=== PATIENT | female | born 1955 | race African-American/Black ===

== ENCOUNTER 2017-10-17 11:57 | Inpatient (IN) | payer OTHER ==
[2017-10-17 12:04] VITALS: BMI 38.4
--- NOTE | 2017-10-17 12:56 | PDOC ---
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 The son is at bedside and providing most of the history. As per the son, the patient finished dialysis this morning and then went to a wound care appointment. At wound care, the patient started having facial movements and the son says these facial movements usually happen when something neurologic is going on. The son notes that the patient has not had any other changes in her mental status and was at her normal state of health yesterday. Allergies: NKA <Ursula Carlton - Last Filed: 10/17/17 13:25> <Derrek Chirinos - Last Filed: 10/17/17 18:27> - General Chief Complaint: Altered Mental Status Stated Complaint: AMS Time Seen by Provider: 10/17/17 12:00 Past History <Ursula Carlton - Last Filed: 10/17/17 13:25> - Past Medical History Anemia: Yes COPD: No Diabetes: Yes Dialysis: Yes HTN: Yes Psychiatric Problems: Yes (schizophrenia) - Suicide/Smoking/Psychosocial Hx Smoking History: Unknown if ever smoked <Derrek Chirinos - Last Filed: 10/17/17 18:27> - Past Medical History Allergies/Adverse Reactions: Allergies Allergy/AdvReac Type Severity Reaction Status Date / Time No Known Allergies Allergy Verified 10/17/17 12:00 Home Medications: Ambulatory Orders Acetaminophen 650 mg GT Q6H PRN 10/17/17 Amlodipine Besylate [Norvasc -] 2.5 mg GT DAILY 10/17/17 Apixaban [Eliquis] 5 mg GT BID 10/17/17 Collagenase Clostridium Hist. [Santyl] 1 applic TP DAILY 10/17/17 Insulin (LOG) Aspart [NovoLOG -] 0 units SQ BID 10/17/17 Insulin NPH Hum/Reg Insulin Hm [Novolin 70-30 100 Unit/ml Vial] 8 unit SQ DAILY 10/17/17 Ipratropium 0.02% Nebulizer [Atrovent] 1 neb NEB Q4H 10/17/17 Lactobacillus Acidophilus [Acidophilus] 1 each GT BID 10/17/17 Levetiracetam [Keppra Oral Solution -] 500 mg GT Q12H 10/17/17 Nystatin Powder [Nystop Topical Powder -] 60 gm TP DAILY 10/17/17 Paricalcitol 2 mcg IV DAILY 10/17/17 Polyvinyl Alcohol [Artificial Tears] 15 ml OP BID 10/17/17 Sevelamer Carbonate 800 mg GT Q8H 10/17/17 Vitamin B Complex/Folic Acid [B-Stress Capsules] 2,000 mcg GT DAILY 10/17/17 Review of Systems - Review of Systems Able to Perform ROS?: No <Ursula Carlton - Last Filed: 10/17/17 13:25> *Physical Exam - Vital Signs Last Vital Signs Temp Pulse Resp BP Pulse Ox 101 H 22 126/68 97 10/17/17 12:01 10/17/17 12:01 10/17/17 12:01 10/17/17 12:01 - Physical Exam Comments: 10/17/17 13:26 GENERAL: Awake, alert, and fully oriented, in no acute distress HEAD: No signs of trauma EYES: PERRLA, EOMI, sclera anicteric, conjunctiva clear ENT: Auricles normal inspection, hearing grossly normal, nares patent, oropharynx clear without exudates. Moist mucosa NECK: Normal ROM, supple, no lymphadenopathy, JVD, or masses LUNGS: Breath sounds equal, clear to auscultation bilaterally. No wheezes, and no crackles HEART: Regular rate and rhythm, normal S1 and S2, no murmurs, rubs or gallops ABDOMEN: Soft, nontender, normoactive bowel sounds. No guarding, no rebound. No masses EXTREMITIES: Normal range of motion, no edema. No clubbing or cyanosis. No cords, erythema, or tenderness NEUROLOGICAL: Normal speech, cranial nerves intact, negative pronator drift, 5/ 5 strength in all 4 extremities, normal sensation to light touch in all 4 extremities, normal cerebellar exam, normal gait, normal reflexes and tone SKIN: Warm, Dry, normal turgor, no rashes or lesions noted. <Ursula Carlton - Last Filed: 10/17/17 13:25> - Vital Signs Last Vital Signs Temp Pulse Resp BP Pulse Ox 101 H 22 126/68 97 10/17/17 12:01 10/17/17 12:01 10/17/17 12:01 10/17/17 12:01 <Derrek Chirinos - Last Filed: 10/17/17 18:27> ED Treatment Course - LABORATORY CBC & Chemistry Diagram: 10/17/17 15:00 10/17/17 14:39 - RADIOLOGY Radiology Studies Ordered: Category Date Time Status HEAD CT WITHOUT CONTRAST [CT] Stat CT Scan 10/17/17 12:01 Ordered CHEST X-RAY PORTABLE* [RAD] Stat Radiology 10/17/17 12:00 Completed <Derrek Chirinos - Last Filed: 10/17/17 18:27> Medical Decision Making - Medical Decision Making 10/17/17 14:17 62-year-old female history of SVC syndrome complicated by emboli and hemorrhage , long term bound, stage IV sacral decubitus ulcer, epilepsy presents to the emergency department with altered mental status from wound clinic. Son notes a common symptoms of her face that he states are only present when something neurologic is occurring. Vitals remarkable for tachycardia to the low 100s. Exam remarkable left repetitive nadine movements, stage IV sacral decubitus ulcer, and low-grade temperature to 100 rectally. Differential for her altered mental status includes but is not limited to infection versus seizures versus ischemia versus metabolic disarray. Will do a sepsis workup as well as a CTH and obtain cardiac enzymes for further evaluation and likely admit. 10/17/17 18:25 CT head with no acute change. Patient treated with Vanc and Zosyn for likely infection due to stage IV sacral decubitus ulcer. Patient has been signed out to resident Dr. Perez in person in the ED and has been accepted for admission to a [facility] inpatient bed under attending Dr. Mishra. Case discussed in detail with admitting physician including history, physical exam and ancillary studies. Admitting physician has assumed care for the patient, will follow all pending diagnostics and will complete the evaluation and treatment. <Derrek Chirinos - Last Filed: 10/17/17 18:27> *DC/Admit/Observation/Transfer - Attestations Scribe Attestion: 10/17/17 13:26 Documentation prepared by Ursula Carlton, acting as medical records director for Derrek Chirinos MD. <Ursula Carlton - Last Filed: 10/17/17 13:25> - Discharge Dispostion Admit: Yes - Attestations Physician Attestion: 10/17/17 18:27 I, Dr. Derrek Chirinos MD, attest that this document has been prepared under my direction and personally reviewed by me in its entirety. I further attest, that it accurately reflects all work, treatment, procedures and medical decision -making performed by me. <Derrek Chirinos - Last Filed: 10/17/17 18:27> Diagnosis at time of Disposition: Sepsis - Discharge Dispostion Condition at time of disposition: Stable
[2017-10-17 15:05] LABS: VENOUS PC02 54.5 mmHg (38-52); VENOUS PH 7.36 (7.32-7.42); VENOUS PO2 33.8 mmHg (28-48)
[2017-10-17 15:09] LABS: BASO % 0.9 % (0-2.0); EOS % 1.3 % (0-4.5); HEMATOCRIT 22.9 % (32.4-45.2); HEMOGLOBIN 7.3 GM/dL (10.7-15.3); LYMPH % 14.3 % (8-40); MCH 27.8 pg (25.7-33.7); MCHC 31.8 g/dl (32.0-36.0); MEAN CELL VOLUME 87.5 fl (80-96); MEAN PLT VOLUME 7.6 fl (7.5-11.1); MONO % 4.3 % (3.8-10.2); NEUT % 79.2 % (42.8-82.8); PLATELET COUNT 564 K/MM3 (134-434); RBC 2.62 M/mm3 (3.60-5.2); RDW 19.4 % (11.6-15.6)
[2017-10-17 15:29] LABS: INR 1.36 (0.82-1.09); PROTHROMBIN TIME (PATIENT) 15.4 SEC (9.98-11.88)
[2017-10-17 15:32] LABS: ACTIVATED PTT 36.5 SECONDS (26.9-34.4)
[2017-10-17 16:23] LABS: ALBUMIN 2.8 g/dl (3.4-5.0); ALK PHOS 160 U/L (45-117); ANION GAP 12 (8-16); BILIRUBIN,TOTAL 0.4 mg/dL (0.2-1.0); BLOOD UREA NITROGEN 24 mg/dL (7-18); CALCIUM 9.2 mg/dL (8.5-10.1); CHLORIDE 92 mmol/L (98-107); CO2 28 mmol/L (21-32); CREATININE 2.3 mg/dL (0.55-1.02); GLUCOSE,RANDOM 83 mg/dL (74-106); POTASSIUM 3.5 mmol/L (3.5-5.1); SGOT/AST 36 U/L (15-37); SGPT/ALT 29 U/L (12-78); SODIUM 132 mmol/L (136-145)
[2017-10-17 16:25] LABS: TOT PROT 7.9 g/dl (6.4-8.2)
[2017-10-17] MEDS ORDERED: PIPERACILLIN/TAZOB 4.5 GM 4.5 GM in DEXTROSE 5%-WATER - 100 ML IVPB ONE (16:34)
[2017-10-17] MEDS ORDERED: VANCOMYCIN 1,000 MG in DEXTROSE 5%-WATER - 250 ML IVPB ONE (16:34)
[2017-10-17] MEDS ORDERED: VANCOMYCIN 1 GRAM (PRE-DOCKED) 1,000 MG/250 ML BAG IVPB ONE (16:43)
[2017-10-17] MEDS ORDERED: PIPERACILLIN/TAZOB 4.5 GM 4.5 GM/100 ML BAG IVPB ONE (16:43)
[2017-10-17] MEDS ORDERED: morphine CARPU-JECT 4 MG/1 ML DISP.SYRIN IVPUSH ONE (16:55)
[2017-10-17] MEDS ORDERED: MORPHINE SULFATE 10 MG/1 ML *VIAL ONE (17:02)
--- NOTE | 2017-10-17 18:07 | HP ---
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 The son is at bedside and providing most of the history. As per the son, the patient finished dialysis this morning and then went to a wound care appointment. At wound care, the patient started having facial movements and the son says these facial movements usually happen when something neurologic is going on. The son notes that the patient has not had any other changes in her mental status and was at her normal state of health yesterday. pt has a H/o schizophrenai and stop her psych meds 6 months ago. ER course was notable for: (1) CXR (2)Head CT (3)CBC, CMP , LA (4)Pacheco cx (5) vanco/zosyn Recent Travel:denies PAST MEDICAL HISTORY: ESRD, HTN, SVC(with embolism and hemorrhage ), iron deficiency anemia , Type II DM, Enetrocolitis C.diff, epilepsy, Stage IV decupetus ulcer. Social History: Smoking:denies Alcohol:denies Drugs: denies Family History: Allergies No Known Allergies Allergy (Verified 10/17/17 12:00) HOME MEDICATIONS: Home Medications Medication Instructions Recorded Acetaminophen 650 mg GT Q6H PRN 10/17/17 Amlodipine Besylate [Norvasc -] 2.5 mg GT DAILY 10/17/17 Apixaban [Eliquis] 5 mg GT BID 10/17/17 Collagenase Clostridium Hist. 1 applic TP DAILY 10/17/17 [Santyl] Insulin (LOG) Aspart [NovoLOG -] 0 units SQ BID 10/17/17 Insulin NPH Hum/Reg Insulin Hm 8 unit SQ DAILY 10/17/17 [Novolin 70-30 100 Unit/ml Vial] Ipratropium 0.02% Nebulizer 1 neb NEB Q4H 10/17/17 [Atrovent] Lactobacillus Acidophilus 1 each GT BID 10/17/17 [Acidophilus] Levetiracetam [Keppra Oral 500 mg GT Q12H 10/17/17 Solution -] Nystatin Powder [Nystop Topical 60 gm TP DAILY 10/17/17 Powder -] Paricalcitol 2 mcg IV DAILY 10/17/17 Polyvinyl Alcohol [Artificial 15 ml OP BID 10/17/17 Tears] Sevelamer Carbonate 800 mg GT Q8H 10/17/17 Vitamin B Complex/Folic Acid 2,000 mcg GT DAILY 10/17/17 [B-Stress Capsules] REVIEW OF SYSTEMS: obtained from son CONSTITUTIONAL: Absent: fever, chills, diaphoresis, generalized weakness, malaise, loss of appetite, weight change HEENT: Absent: rhinorrhea, nasal congestion, throat pain, throat swelling, difficulty swallowing, mouth swelling, ear pain, eye pain, visual changes CARDIOVASCULAR: Absent: chest pain, syncope, palpitations, irregular heart rate, lightheadedness , peripheral edema RESPIRATORY: Absent: cough, shortness of breath, dyspnea with exertion, orthopnea, wheezing, stridor, hemoptysis GASTROINTESTINAL: Absent: abdominal pain, abdominal distension, nausea, vomiting, diarrhea, constipation, melena, hematochezia GENITOURINARY: Absent: dysuria, frequency, urgency, hesitancy, hematuria, flank pain, genital pain, anuria MUSCULOSKELETAL: Absent: myalgia, arthralgia, joint swelling, back pain, neck pain SKIN: Absent: rash, itching, pallor HEMATOLOGIC/IMMUNOLOGIC: Absent: easy bleeding, easy bruising, lymphadenopathy, frequent infections ENDOCRINE: Absent: unexplained weight gain, unexplained weight loss, heat intolerance, cold intolerance NEUROLOGIC: Absent: headache, focal weakness or paresthesias, dizziness, unsteady gait, seizure, mental status changes, bladder or bowel incontinence PSYCHIATRIC: Absent: anxiety, depression, suicidal or homicidal ideation, hallucinations. PHYSICAL EXAMINATION Vital Signs - 24 hr 10/17/17 10/17/17 12:01 13:43 Temperature 100.0 F H Pulse Rate 101 H Respiratory 22 Rate Blood Pressure 126/68 O2 Sat by Pulse 97 Oximetry (%) GENERAL: awake , not alert not oriented , responce to verbal stimuli HEAD: Normal with no signs of trauma. EYES:right pupil dilated non reactive deformed , left pupil reactive to light. ENT: dry mucous membrane NECK: supple LUNGS: Breath sounds equal, clear to auscultation bilaterally. No wheezes, and no crackles. No accessory muscle use. HEART: Regular rate and rhythm, normal S1 and S2 ,systolic murmur 2-3/6 LUSB, No rub or gallop. ABDOMEN: Soft, nontender, distended, normoactive bowel sounds, no guarding, no rebound, PEG in place UPPER EXTREMITIES: 1+ pulses, cold, No cyanosis. No clubbing. No peripheral edema. fistula in left arm, IV line in right arm , 3/5 strength on the right , vs 5/5 strength on the left LOWER EXTREMITIES: 1+ pulses, cold , No calf tenderness. No peripheral edema. strength 3/5 on the right with 5/5 on the left . NEUROLOGICAL: could not perform due to AMS SKIN: Warm, dry, scar on the right arm, 10 cm x 8 cm dicupetus ulcer stage IV Laboratory Results - last 24 hr 10/17/17 10/17/17 10/17/17 13:25 14:39 14:39 WBC Cancelled Corrected WBC (auto) Cancelled RBC Cancelled Hgb Cancelled Hct Cancelled MCV Cancelled MCH Cancelled MCHC Cancelled RDW Cancelled Plt Count Cancelled MPV Cancelled Neutrophils % Cancelled Lymphocytes % Cancelled Monocytes % Cancelled Eosinophils % Cancelled Basophils % Cancelled Nucleated RBC % Cancelled Platelet Estimate Cancelled Platelet Comment Cancelled PT with INR 15.40 H INR 1.36 H PTT (Actin FS) 36.5 H VBG pH 7.36 POC VBG pCO2 54.5 H POC VBG pO2 33.8 Mixed VBG HCO3 30.1 H Sodium Potassium Chloride Carbon Dioxide Anion Gap BUN Creatinine Creat Clearance w eGFR Random Glucose Lactic Acid Calcium Magnesium Total Bilirubin AST ALT Alkaline Phosphatase Creatine Kinase Creatine Kinase Index CK-MB (CK-2) Troponin I Total Protein Albumin 10/17/17 10/17/17 10/17/17 14:39 14:39 15:00 WBC Corrected WBC (auto) RBC Hgb Hct MCV MCH MCHC RDW Plt Count MPV Neutrophils % Lymphocytes % Monocytes % Eosinophils % Basophils % Nucleated RBC % Platelet Estimate Platelet Comment PT with INR INR PTT (Actin FS) VBG pH POC VBG pCO2 POC VBG pO2 Mixed VBG HCO3 Sodium 132 L Potassium 3.5 Chloride 92 L Carbon Dioxide 28 Anion Gap 12 BUN 24 H Creatinine 2.3 H Creat Clearance w eGFR 21.49 Random Glucose 83 Lactic Acid 2.4 H* Calcium 9.2 Magnesium Cancelled Total Bilirubin 0.4 AST 36 ALT 29 Alkaline Phosphatase 160 H Creatine Kinase 448 H Creatine Kinase Index 1.2 CK-MB (CK-2) 5.508 H Troponin I < 0.02 Cancelled Total Protein 7.9 Albumin 2.8 L 10/17/17 15:00 WBC 10.0 Corrected WBC (auto) RBC 2.62 L Hgb 7.3 L Hct 22.9 L MCV 87.5 MCH 27.8 MCHC 31.8 L RDW 19.4 H Plt Count 564 H MPV 7.6 Neutrophils % 79.2 Lymphocytes % 14.3 Monocytes % 4.3 Eosinophils % 1.3 Basophils % 0.9 Nucleated RBC % Platelet Estimate Platelet Comment PT with INR INR PTT (Actin FS) VBG pH POC VBG pCO2 POC VBG pO2 Mixed VBG HCO3 Sodium Potassium Chloride Carbon Dioxide Anion Gap BUN Creatinine Creat Clearance w eGFR Random Glucose Lactic Acid Calcium Magnesium Total Bilirubin AST ALT Alkaline Phosphatase Creatine Kinase Creatine Kinase Index CK-MB (CK-2) Troponin I Total Protein Albumin CBC, BMP 10/17/17 15:00 10/17/17 14:39 CXR : weak inspiration with promenent mediastenum. CT head : moderate atrophy , NO intracranial lesions or hemorrhage. 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 was found to have sepsis ad admitted to med-surg for further evaluation. # Sepsis likely 2/2 decubitus ulcer vs unknown source * Pacheco cx (blood, urine , sputum, wound ) * influenza swap rapid * Vanco/zosyn in ED * ID on board * repeat CBC, CMP * LA 2.4 repeat LA * Tylenol for fever * IV fluids boluses with 75 CC/hr maintenance * # AMS likely 2/2 sepsis vs volume depletion vs electrolytes imbalance vs seizure vs CVA * Head CT negative * H/O seizure contine home meds * replinished elctrolytes * IV fluids NS 2 L bolus , maintenance 100 CC/hr * # Hyponatremia 2/2 low oral intake * NS IV fluids * repeat lab * # REBECA on CKD on HD 2/2 sepsis vs pre renal * BUN/ CR 24/2.3 , had HD today * IV fluids, ABX * consult nephrology * Avoid nephrotoxic agenst * nephrology consult * c/w HD schedule * repeat BuN/Cr * # Stage IV decubitus ulcer * wound care * contiue abx * wound cx # Prolonges QT * avoid meds that cause prolongtion (zofran, levaquin, ...) # HTN * hold home meds due to sepsis * # Type II DM * Hold home meds * ISS * BGM TID * npo for now , diabetic diet low sodium diet later * # seizure * Continue home meds * Consult neurology * # FEN * F: NS bolusses with maintenance * E: replenished , monitor * N: NPO , later diabetic , low sodium diet through PEG * # Proph * DVT : SCDS both legs * GI: protonix 40 mg daily * # Dispo * Admit to Med-surg Visit type - Emergency Visit Emergency Visit: Yes ED Registration Date: 10/17/17 Care time: The patient presented to the Emergency Department on the above date and was hospitalized for further evaluation of their emergent condition. - New Patient This patient is new to me today: Yes Date on this admission: 10/19/17 - Critical Care Critical Care patient: No
[2017-10-17] MEDS ORDERED: SODIUM CHLORIDE 1,000 ML IV SCH ×2 (19:30→22:56)
[2017-10-17] MEDS ORDERED: IPRATROPIUM BR 0.02% 0.5 MG/2.5 ML VIAL.NEB. NEB PRN (23:00)
[2017-10-17] MEDS: levETIRAcetam 500 MG/5 ML ORAL SOLUTION (UNIT-DOSE CUPS) GT SCH (23:30)
--- NOTE | 2017-10-18 00:05 | PN ---
Teaching Attending Note Name of Resident: Greg Cuevas ATTENDING PHYSICIAN STATEMENT I saw and evaluated the patient. I reviewed the resident's note and discussed the case with the resident. I agree with the resident's findings and plan as documented. SUBJECTIVE: OBJECTIVE: ASSESSMENT AND PLAN: patient is admitted for sepsis 2/2 to sacral decubitus ulcer patient was noted to have tardive dyskinesiea that according to the patients son has been going on for a while, she was on antiphychotics but she has not taken the medication for over 6 months, since she was admitted to the [facility] for a stroke with a SVC clot. patient is AAOX3 she is agitated biting her hand involuntary. plan; admit to hospital for sepsis 2/2 sacral ulcer start vancomycin and pipercillin/tazobactam consult ID IVF hydration trend lactic acid c/w home medication f/u with neurology for tradive dyskinesia consider psychiatry if the patient wants to be managed for her schizoaffective/ bipolar disorder obtain echocardiogram
[2017-10-18] MEDS ORDERED: HALOPERIDOL LACTATE 5 MG/ML IM ONE (03:17)
[2017-10-18 06:13] LABS: ALLENS TEST POSITIVE; ARTERIAL BLD GAS O2 SATURATION 96.6 % (90-98.9); ARTERIAL BLOOD GAS BASE EXCESS 6.1 meq/l (-2-2); ARTERIAL BLOOD GAS PCO2 39.2 mmHg (35-45); ARTERIAL BLOOD GAS PO2 76.1 mmHg (80-100); ARTERIAL BLOOD GAS pH 7.49 (7.35-7.45)
[2017-10-18] MEDS: INSULIN SLIDING SCALE (NOVOLOG) 1 VIAL SQ SCH ×3 (06:23→19:38)
[2017-10-18 07:56] LABS: BASO % 0.6 % (0-2.0); EOS % 1.3 % (0-4.5); HEMATOCRIT 21.2 % (32.4-45.2); LYMPH % 14.5 % (8-40); MCH 27.1 pg (25.7-33.7); MCHC 30.9 g/dl (32.0-36.0); MEAN CELL VOLUME 87.6 fl (80-96); MONO % 5.9 % (3.8-10.2); NEUT % 77.7 % (42.8-82.8); PLATELET COUNT 537 K/MM3 (134-434); RBC 2.42 M/mm3 (3.60-5.2); RDW 19.2 % (11.6-15.6); WHITE BLOOD COUNT 10.4 K/mm3 (4.0-10.0)
[2017-10-18 07:59] LABS: INR 1.42 (0.82-1.09); PROTHROMBIN TIME (PATIENT) 16.1 SEC (9.98-11.88)
[2017-10-18 08:01] LABS: ACTIVATED PTT 36.8 SECONDS (26.9-34.4)
[2017-10-18 08:11] LABS: CHLORIDE 94 mmol/L (98-107); HEMOGLOBIN 6.6 GM/dL (10.7-15.3); POTASSIUM 3.3 mmol/L (3.5-5.1); SODIUM 133 mmol/L (136-145)
[2017-10-18 08:19] LABS: ALBUMIN 2.6 g/dl (3.4-5.0); ALK PHOS 149 U/L (45-117); ANION GAP 12 (8-16); BILIRUBIN,TOTAL 0.6 mg/dL (0.2-1.0); BLOOD UREA NITROGEN 32 mg/dL (7-18); CO2 27 mmol/L (21-32); CREATININE 3.3 mg/dL (0.55-1.02); GLUCOSE,RANDOM 122 mg/dL (74-106); MAGNESIUM 2.3 mg/dL (1.8-2.4); SGOT/AST 25 U/L (15-37); SGPT/ALT 22 U/L (12-78); TOT PROT 7.1 g/dl (6.4-8.2)
[2017-10-18 08:35] LABS: ADD RBC MORPHOLOGY YES
[2017-10-18 09:08] LABS: BASO % 0.7 % (0-2.0); EOS % 1.3 % (0-4.5); HEMATOCRIT 20.9 % (32.4-45.2); LYMPH % 18.8 % (8-40); MCH 26.9 pg (25.7-33.7); MEAN CELL VOLUME 86.9 fl (80-96); MEAN PLT VOLUME 6.5 fl (7.5-11.1); MONO % 6.4 % (3.8-10.2); NEUT % 72.8 % (42.8-82.8); PLATELET COUNT 568 K/MM3 (134-434); RBC 2.41 M/mm3 (3.60-5.2); RDW 19.5 % (11.6-15.6); WHITE BLOOD COUNT 11.7 K/mm3 (4.0-10.0)
[2017-10-18 09:13] LABS: HEMOGLOBIN 6.5 GM/dL (10.7-15.3)
--- NOTE | 2017-10-18 09:38 | PN ---
Progress Note, Physician Chief Complaint: ID Full note dictated Patient offers no complaints nonverbal - Current Medication List Current Medications: Active Medications Acetaminophen (Tylenol -) 650 mg PO Q4H PRN PRN Reason: FEVER Apixaban (Eliquis -) 5 mg PO BID [facility] Artificial Tears (Artificial Tears) 1 drop OD BID ROSELYN Collagenase (Santyl -) 1 applic TP DAILY [facility] Sodium Chloride (Normal Saline -) 1,000 mls @ 75 mls/hr IV ASDIR [facility] Last Admin: 10/17/17 23:30 Dose: Not Given Insulin Aspart (Novolog Vial Sliding Scale -) 1 vial SQ TIDAC ROSELYN PRN Reason: Protocol Last Admin: 10/18/17 06:23 Dose: Not Given Ipratropium Jenkins (Atrovent 0.02% Nebulizer -) 1 amp NEB Q4H PRN PRN Reason: SHORTNESS OF BREATH Lactobacillus Acidophilus (Bacid -) 1 tab GT BID [facility] Levetiracetam (Keppra Oral Solution -) 500 mg GT BID [facility] Last Admin: 10/17/17 23:30 Dose: Not Given Multivitamins (Total B With C -) 1 each PO DAILY [facility] Nystatin (Nystop Powder -) 1 applic TP DAILY [facility] Paricalcitol (Zemplar -) 2 mcg IVPUSH MoWeFr@1000 [facility] - Objective Vital Signs: Vital Signs Temperature 98.4 F 10/18/17 05:49 Pulse Rate 99 H 10/18/17 05:49 Respiratory Rate 20 10/18/17 05:49 Blood Pressure 127/68 10/18/17 05:49 O2 Sat by Pulse Oximetry (%) 91 L 10/17/17 23:00 Constitutional: Yes: Obese Cardiovascular: Yes: S1, S2 Respiratory: Yes: WNL, Regular, CTA Bilaterally Gastrointestinal: Yes: WNL, Normal Bowel Sounds, Soft. No: Tenderness, Tenderness, Epigastrium Extremities: Yes: Other (AVF left arm) Integumentary: Yes: Other (decub Stage 4 sacral) Labs: CBC, BMP 10/18/17 08:54 10/18/17 06:10 INR, PTT INR 1.42 (0.82-1.09) H 10/18/17 06:10 Problem List - Problems (1) ESRD (end stage renal disease) Code(s): N18.6 - END STAGE RENAL DISEASE (2) Sepsis Code(s): A41.9 - SEPSIS, UNSPECIFIED ORGANISM (3) Decubital ulcer Code(s): L89.90 - PRESSURE ULCER OF UNSPECIFIED SITE, UNSPECIFIED STAGE Assessment/Plan Microbiology Laboratory Tests 10/18/17 10/18/17 06:10 08:54 WBC 11.7 H Hgb 6.5 L* Plt Count 568 H BUN 32 H Creatinine 3.3 H Creat Clearance w eGFR 14.17 Total Bilirubin 0.6 D AST 25 ALT 22 Alkaline Phosphatase 149 H Assessment Fever ? etiology ESRD Seizures Stage 4 sacral decub Plan Blood cultures x 2 Vanco dose per body weight and Zosyn ( avoid carbepenems seizures) Neuro consult Lenny HUTSON
--- NOTE | 2017-10-18 09:50 | PN ---
Physical Exam: SUBJECTIVE: Patient seen and examined Comfortable with no acute distress, feeling better. OBJECTIVE: Vital Signs Temperature 98.4 F 10/18/17 05:49 Pulse Rate 99 H 10/18/17 05:49 Respiratory Rate 20 10/18/17 05:49 Blood Pressure 127/68 10/18/17 05:49 O2 Sat by Pulse Oximetry (%) 91 L 10/17/17 23:00 GENERAL: The patient is awake, alert, slight difficulty with speech. HEAD: Normal with no signs of trauma. EYES: PERRL, extraocular movements intact, sclera anicteric, conjunctiva clear. ENT: Ears normal, oropharynx clear without exudates, moist mucous membranes. NECK: Trachea midline, full range of motion, supple. LUNGS: Breath sounds equal, clear to auscultation bilaterally, no wheezes, no crackles, no accessory muscle use. HEART: SEM3/6 RRR, ABDOMEN: Soft, nontender, nondistended, normoactive bowel sounds, no guarding, no rebound, no hepatosplenomegaly, no masses. EXTREMITIES: 2+ pulses, warm, well-perfused, no edema. NEUROLOGICAL: Cranial nerves II through XII grossly intact. Normal speech, gait not observed. PSYCH: Normal mood, normal affect. SKIN: Warm, dry, normal turgor, no rashes or lesions noted Sacral decubitus: stage IV very deep, wound is clean. CBCD WBC 11.7 K/mm3 (4.0-10.0) H 10/18/17 08:54 RBC 2.41 M/mm3 (3.60-5.2) L 10/18/17 08:54 Hgb 6.5 GM/dL (10.7-15.3) L* 10/18/17 08:54 Hct 20.9 % (32.4-45.2) L 10/18/17 08:54 MCV 86.9 fl (80-96) 10/18/17 08:54 MCHC 31.0 g/dl (32.0-36.0) L 10/18/17 08:54 RDW 19.5 % (11.6-15.6) H 10/18/17 08:54 Plt Count 568 K/MM3 (134-434) H 10/18/17 08:54 MPV 6.5 fl (7.5-11.1) L 10/18/17 08:54 CMP Sodium 133 mmol/L (136-145) L 10/18/17 06:10 Potassium 3.3 mmol/L (3.5-5.1) L 10/18/17 06:10 Chloride 94 mmol/L (98-107) L 10/18/17 06:10 Carbon Dioxide 27 mmol/L (21-32) 10/18/17 06:10 Anion Gap 12 (8-16) 10/18/17 06:10 BUN 32 mg/dL (7-18) H 10/18/17 06:10 Creatinine 3.3 mg/dL (0.55-1.02) H 10/18/17 06:10 Creat Clearance w eGFR 14.17 (>60) 10/18/17 06:10 Random Glucose 122 mg/dL (74-106) H 10/18/17 06:10 Calcium 9.0 mg/dL (8.5-10.1) 10/18/17 06:10 Total Bilirubin 0.6 mg/dL (0.2-1.0) D 10/18/17 06:10 AST 25 U/L (15-37) 10/18/17 06:10 ALT 22 U/L (12-78) 10/18/17 06:10 Alkaline Phosphatase 149 U/L (45-117) H 10/18/17 06:10 Total Protein 7.1 g/dl (6.4-8.2) 10/18/17 06:10 Albumin 2.6 g/dl (3.4-5.0) L 10/18/17 06:10 CARDIAC ENZYMES Creatine Kinase 448 IU/L (26-192) H 10/17/17 14:39 Troponin I < 0.02 ng/ml (0.00-0.05) 10/17/17 14:39 Active Medications Generic Name Dose Route Start Last Admin Trade Name Freq PRN Reason Stop Dose Admin Acetaminophen 650 mg 10/17/17 19:22 Tylenol - PO Q4H PRN FEVER Apixaban 5 mg 10/18/17 10:00 Eliquis - PO BID ROSELYN Artificial Tears 1 drop 10/18/17 10:00 Artificial Tears OD BID ROSELYN Collagenase 1 applic 10/18/17 10:00 Santyl - TP DAILY ROSELYN Sodium Chloride 1,000 mls @ 75 mls/hr 10/17/17 22:56 10/17/17 23:30 Normal Saline - IV Not Given ASDIR [facility] Vancomycin HCl 1 mg/ Dextrose 250 mls @ 250 mls/hr 10/18/17 09:45 IVPB 10/18/17 10:44 ONCE ONE Protocol Piperacillin/Tazobactam/Dextrose 2.25 gm in 50 mls @ 100 mls/hr 10/18/17 10: 00 Zosyn 2.25gm Ivpb (Premix) IVPB BID [facility] Protocol Insulin Aspart 1 vial 10/18/17 07:00 10/18/17 06:23 Novolog Vial Sliding Scale - SQ Not Given TIDAC [facility] Protocol Ipratropium [place] 1 amp 10/17/17 23:00 Atrovent 0.02% Nebulizer - NEB Q4H PRN SHORTNESS OF BREATH Lactobacillus Acidophilus 1 tab 10/18/17 10:00 Bacid - GT BID [facility] Levetiracetam 500 mg 10/17/17 23:00 10/17/17 23:30 Keppra Oral Solution - GT Not Given BID [facility] Multivitamins 1 each 10/18/17 10:00 Total B With C - PO DAILY [facility] Nystatin 1 applic 10/18/17 10:00 Nystop Powder - TP DAILY [facility] Paricalcitol 2 mcg 10/20/17 10:00 Zemplar - IVPUSH [id number] [facility] Home Medications Medication Instructions Recorded Acetaminophen 650 mg GT Q6H PRN 10/17/17 Amlodipine Besylate [Norvasc -] 2.5 mg GT DAILY 10/17/17 Apixaban [Eliquis] 5 mg GT BID 10/17/17 Collagenase Clostridium Hist. 1 applic TP DAILY 10/17/17 [Santyl] Insulin (LOG) Aspart [NovoLOG -] 0 units SQ BID 10/17/17 Insulin NPH Hum/Reg Insulin Hm 8 unit SQ DAILY 10/17/17 [Novolin 70-30 100 Unit/ml Vial] Ipratropium 0.02% Nebulizer 1 neb NEB Q4H 10/17/17 [Atrovent] Lactobacillus Acidophilus 1 each GT BID 10/17/17 [Acidophilus] Levetiracetam [Keppra Oral 500 mg GT Q12H 10/17/17 Solution -] Nystatin Powder [Nystop Topical 60 gm TP DAILY 10/17/17 Powder -] Paricalcitol 2 mcg IV DAILY 10/17/17 Polyvinyl Alcohol [Artificial 15 ml OP BID 10/17/17 Tears] Sevelamer Carbonate 800 mg GT Q8H 10/17/17 Vitamin B Complex/Folic Acid 2,000 mcg GT DAILY 10/17/17 [B-Stress Capsules] ASSESSMENT/PLAN: 62 year old female with a hx of sacral decubitus, tardive diskinesia, ESRD on HD , HTN, SVC syndrome/clot, iron-deficiency anemia, Type 2 diabetes, GERD, and epilepsy is admitted to the hospital for sepsis 2/2 sacral decubitus #Sepsis due to sacral ulcer stage IV : continue IV antibiotic zosyn, vancomycin per ID recommendations #ARF over chronic appreciate nephro consult #Electrolyte imbalance replete as needed. #Tardive Dyskinesia: stable, was due to antipsychotic use - stopped 6 months ago , neuro on the case #Anemia: stable transfuse below 7 s/p one unit. #Seizure Disorder: continue keppra 500 BID #Hx of SVC syndrome/clot: on eliquis 5mg BID continue DVt Px; Eliquis Visit type - Emergency Visit Emergency Visit: Yes ED Registration Date: 10/17/17 Care time: The patient presented to the Emergency Department on the above date and was hospitalized for further evaluation of their emergent condition. - New Patient This patient is new to me today: No - Critical Care Critical Care patient: No - Discharge Referral Referred to [facility] Med P.C.: No
[2017-10-18] MEDS ORDERED: PT OWN MED DRAWER 7, Y5N ONE ×2 (10:15→20:48)
--- NOTE | 2017-10-18 10:18 | CONS ---
INFECTIOUS DISEASE CONSULTATION DATE OF CONSULTATION: DATE OF DICTATION: 10/18/2017 REASON FOR CONSULTATION: This is a 62-year-old female from a skilled care facility, with end-stage renal disease, brought after a rapid response was noted in Wound Care yesterday, where she has her decubitus ulcer followed. According to the notes, as the patient can give no history, her son was there at the time and noted what was described as facial movements, possible seizures, in this 62-year-old who has a pre-existing seizure disorder. She was empirically treated for sepsis after she developed fever and mildly elevated WBC count. She is on dialysis through a fistula in her left antecubital area. This morning, blood cultures are thus far no growth. She has a large sacral decubitus which has been chronic and followed in the wound care center. PAST MEDICAL HISTORY: Includes end-stage renal disease, hypertension, SVC syndrome with embolism, iron deficiency anemia, type 2 diabetes, and history of C. difficile infection. SOCIAL HISTORY: Nonsmoker. No history of alcohol use. MEDICATIONS: Include amlodipine, Eliquis, insulin, Keppra. FAMILY HISTORY: Unobtainable. REVIEW OF SYSTEMS: Respiratory: No cough or shortness of breath. Cardiac: No history of chest pain, syncope, palpitations, murmur. Gastrointestinal: No obvious diarrhea, vomiting, blood per rectum. Genitourinary: End-stage renal disease, incontinent of any urine. PHYSICAL EXAMINATION: General: She was a heavy-set woman in no acute distress. Vital Signs: The weight was 260 pounds. Temperature now 98.4, pulse 99, blood pressure 127/68, respirations 20. Lungs: Clear. Heart: S1, S2. Regular rhythm. Abdomen: Soft with no localized tenderness, guarding, rebound. Extremities: Revealed an AV fistula in the left arm, which did not appear infected. Skin: Revealed a stage 4 sacral decubitus which was packed with bloody drainage and no surrounding cellulitis seen. DIAGNOSTIC DATA: White count was 11.7 with a hemoglobin of 6.5, platelets of 568. BUN of 32, creatinine 3.3. Alkaline phosphatase 149. O2 saturation on admission 91%. Chest x-ray shows no obvious acute infiltrate present. ASSESSMENT: A 62-year-old female with pre-existing seizure disorder, rapid response noted on wound care after she apparently developed what appeared to be facial twitching which could have represented seizure activity. She is on Keppra. She has low-grade fever with mildly elevated white count, and the possibility of infection is considered. She does not appear to meet criteria for sepsis. Agree that she should be treated pending final blood cultures with vancomycin dosed based on body weight, along with piperacillin/tazobactam based on her end-stage renal disease. Case was discussed with Dr. Hernandez. A surgical consult with Dr. Perez to evaluate the decubitus ulcer has been requested, along with neurology consult for further evaluation of chronic seizure disorder. KENNY LAINEZ M.D. [id number]
[2017-10-18] MEDS: NYSTATIN POWDER 100,000 UNITS/GM - 15 GM TOPICAL POWDER TP SCH (10:54)
[2017-10-18] MEDS: VITAMIN B COMPLEX W/C COMBO TABLET (FP) PO SCH (10:54)
[2017-10-18] MEDS: ARTIFICIAL TEARS (POLYVINYL ALCOHOL 1.4%) OPTH DROPS OD SCH ×2 (10:54→23:03)
[2017-10-18] MEDS: LACTOBACILLUS ACIDOPHILUS 1 EACH TAB (FP) GT SCH ×2 (10:54→23:04)
[2017-10-18] MEDS: APIXABAN 5 MG TABLET PO SCH ×2 (10:54→23:04)
[2017-10-18] MEDS: COLLAGENASE CLOSTRIDIUM HIST. 30 GRAMS TUBE TP SCH (10:55)
[2017-10-18] MEDS: levETIRAcetam 500 MG/5 ML ORAL SOLUTION (UNIT-DOSE CUPS) GT SCH ×2 (10:55→23:03)
[2017-10-18] MEDS ORDERED: VANCOMYCIN 1,000 MG in DEXTROSE 5%-WATER - 250 ML IVPB ONE (11:00)
[2017-10-18] MEDS ORDERED: VANCOMYCIN 1 MG in DEXTROSE 5%-WATER - 250 ML IVPB ONE (11:00)
[2017-10-18 12:18] LABS: ANISOCYTOSIS 1+
[2017-10-18 12:19] LABS: PLATELET ESTIMATE INCREASED
[2017-10-18] MEDS: PIPERACILLIN/TAZOB 2.25 GM 2.25 GM/50 ML BAG IVPB SCH ×2 (12:28→22:07)
--- NOTE | 2017-10-18 12:56 | EKG ---
Test Reason : Blood Pressure : / mmHG Vent. Rate : 091 BPM Atrial Rate : 091 BPM P-R Int : 158 ms QRS Dur : 070 ms QT Int : 402 ms P-R-T Axes : 045 017 046 degrees QTc Int : 494 ms NORMAL SINUS RHYTHM PROLONGED QT ABNORMAL ECG WHEN COMPARED WITH ECG OF 17-OCT-2017 14:23, CLINICAL CORRELATION IS RECOMMENDED Confirmed by YASH HUTSON, MATT ([id number]) on 10/18/2017 12:56:17 PM Referred By: Trent FERRARI Confirmed By:MATT BERRIOS MD
--- NOTE | 2017-10-18 13:25 | EKG ---
Test Reason : Blood Pressure : / mmHG Vent. Rate : 099 BPM Atrial Rate : 099 BPM P-R Int : 148 ms QRS Dur : 072 ms QT Int : 406 ms P-R-T Axes : 053 036 052 degrees QTc Int : 521 ms NORMAL SINUS RHYTHM POOR R WAVE PROGRESSION PROLONGED QT ABNORMAL ECG NO PREVIOUS ECGS AVAILABLE NOTE ERROR IN LEAD POSITIONING, LEAD V4 Confirmed by YASH HUTSON, MATT ([id number]) on 10/18/2017 1:25:11 PM Referred By: Confirmed By:MATT BERRIOS MD
[2017-10-18] MEDS ORDERED: ACETAMINOPHEN 650 MG/20.3 ML ORAL SOLUTION (CUPS) PEG ONE (15:30)
--- NOTE | 2017-10-18 15:59 | CONSULT ---
Consult Consult Specialty:: Nephrology Reason for Consultation:: ESRD on HD - History of Present Illness Chief Complaint: had a change in mental status while in wound care History of Present Illness: Pt is a 62 year old female with pmhx of ESRD, HTN, SVC syndrome, anemia, DM, c.diff, epilepsy and GERD who was sent to the ER after a rapid response was called in wound care. She had facial twitching and was not responsive. I was called to evaluate her as she is an HD pt. She goes to dialysis [facility]. Her last dialysis session was Friday morning. She was also found to be anemic. Pt is not waking up. Her family are at bedside and care was discussed with them. 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 Cardio/Vascular: Yes: HTN Renal/: Yes: Hemodialysis Heme/Onc: Yes: Anemia Endocrine: Yes: Diabetes Mellitus Additional Medical History: obesity - Past Surgical History Past Surgical History: Yes: AV Fistula/Graft - Smoking History Smoking history: Unknown if ever smoked Home Medications - Allergies Allergies/Adverse Reactions: Allergies Allergy/AdvReac Type Severity Reaction Status Date / Time No Known Allergies Allergy Verified 10/17/17 12:00 - Home Medications Home Medications: Ambulatory Orders Acetaminophen 650 mg GT Q6H PRN 10/17/17 Amlodipine Besylate [Norvasc -] 2.5 mg GT DAILY 10/17/17 Apixaban [Eliquis] 5 mg GT BID 10/17/17 Collagenase Clostridium Hist. [Santyl] 1 applic TP DAILY 10/17/17 Insulin (LOG) Aspart [NovoLOG -] 0 units SQ BID 10/17/17 Insulin NPH Hum/Reg Insulin Hm [Novolin 70-30 100 Unit/ml Vial] 8 unit SQ DAILY 10/17/17 Ipratropium 0.02% Nebulizer [Atrovent] 1 neb NEB Q4H 10/17/17 Lactobacillus Acidophilus [Acidophilus] 1 each GT BID 10/17/17 Levetiracetam [Keppra Oral Solution -] 500 mg GT Q12H 10/17/17 Nystatin Powder [Nystop Topical Powder -] 60 gm TP DAILY 10/17/17 Paricalcitol 2 mcg IV DAILY 10/17/17 Polyvinyl Alcohol [Artificial Tears] 15 ml OP BID 10/17/17 Sevelamer Carbonate 800 mg GT Q8H 10/17/17 Vitamin B Complex/Folic Acid [B-Stress Capsules] 2,000 mcg GT DAILY 10/17/17 Family Disease History - Family Disease History Family History: Unable to Obtain Review of Systems Unable to obtain ROS, reason: pt lethargic Physical Exam Vital Signs: Vital Signs Temperature 99.6 F 10/18/17 14:34 Pulse Rate 95 H 10/18/17 13:39 Respiratory Rate 20 10/18/17 13:39 Blood Pressure 114/49 10/18/17 13:39 O2 Sat by Pulse Oximetry (%) 91 L 10/17/17 23:00 Constitutional: Yes: Calm Eyes: Yes: Conjunctiva Clear Cardiovascular: Yes: S1, S2 Respiratory: Yes: CTA Bilaterally Gastrointestinal: Yes: Soft, Abdomen, Obese Renal/: Yes: Incontinence Musculoskeletal: Yes: Muscle Weakness Extremities: Yes: Other (fistula with thrill and bruit) Edema: Yes Neurological: Yes: Lethargy Labs: CBC, BMP 10/18/17 08:54 10/18/17 06:10 Laboratory Tests 10/17/17 10/17/17 10/18/17 14:39 15:00 06:00 RBC Hgb 7.3 L ABG pH 7.49 H ABG pCO2 at Pt Temp 39.2 ABG HCO3 29.6 H Sodium Potassium Chloride Carbon Dioxide Anion Gap BUN 24 H Creatinine 2.3 H 10/18/17 10/18/17 10/18/17 06:10 06:10 08:54 RBC 2.41 L Hgb 6.6 L* ABG pH ABG pCO2 at Pt Temp ABG HCO3 Sodium 133 L Potassium 3.3 L Chloride 94 L Carbon Dioxide 27 Anion Gap 12 BUN 32 H Creatinine 3.3 H Imaging - Results Chest X-ray: Report Reviewed Cat Scan: Report Reviewed Problem List - Problems (1) Decubital ulcer Code(s): L89.90 - PRESSURE ULCER OF UNSPECIFIED SITE, UNSPECIFIED STAGE (2) ESRD (end stage renal disease) Code(s): N18.6 - END STAGE RENAL DISEASE (3) Sepsis Code(s): A41.9 - SEPSIS, UNSPECIFIED ORGANISM Assessment/Plan Current Medications Generic Name Dose Route Start Last Admin Trade Name Freq PRN Reason Stop Dose Admin Acetaminophen 650 mg 10/17/17 19:22 Tylenol - PO Q4H PRN FEVER Apixaban 5 mg 10/18/17 10:00 10/18/17 10:54 Eliquis - PO 5 mg BID ROSELYN Administration Artificial Tears 1 drop 10/18/17 10:00 10/18/17 10:54 Artificial Tears OD 1 drop BID ROSELYN Administration Collagenase 1 applic 10/18/17 10:00 10/18/17 10:55 Santyl - TP 1 applic DAILY ROSELYN Administration Sodium Chloride 1,000 mls @ 75 mls/hr 10/17/17 22:56 10/17/17 23:30 Normal Saline - IV Not Given ASDIR [facility] Piperacillin/Tazobactam/Dextrose 2.25 gm in 50 mls @ 100 mls/hr 10/18/17 10: 00 10/18/17 12:28 Zosyn 2.25gm Ivpb (Premix) IVPB 100 mls/hr BID ROSELYN Administration Protocol Insulin Aspart 1 vial 10/18/17 07:00 10/18/17 11:46 Novolog Vial Sliding Scale - SQ Not Given TIDAC [facility] Protocol Ipratropium [place] 1 amp 10/17/17 23:00 Atrovent 0.02% Nebulizer - NEB Q4H PRN SHORTNESS OF BREATH Lactobacillus Acidophilus 1 tab 10/18/17 10:00 10/18/17 10:54 Bacid - GT 1 tab BID ROSELYN Administration Levetiracetam 500 mg 10/17/17 23:00 10/18/17 10:55 Keppra Oral Solution - GT 500 mg BID ROSELYN Administration Multivitamins 1 each 10/18/17 10:00 10/18/17 10:54 Total B With C - PO 1 each DAILY ROSELYN Administration Nystatin 1 applic 10/18/17 10:00 10/18/17 10:54 Nystop Powder - TP 1 applic DAILY ROSELYN Administration Paricalcitol 2 mcg 10/20/17 10:00 Zemplar - IVPUSH [email or web address] [facility] Impression 1. ESRD 2. anemia 3. change in mental status 4. epilepsy 5. htn 6. dm 7. gerd 8. obesity Plan - next HD on Friday - can transfuse PRBC - resume home meds - neuro eval - renal dose abx - will follow Dr Medellin
[2017-10-18 22:01] LABS: HEMATOCRIT 24.1 % (32.4-45.2); HEMOGLOBIN 7.6 GM/dL (10.7-15.3); MCH 27.6 pg (25.7-33.7); MCHC 31.3 g/dl (32.0-36.0); MEAN CELL VOLUME 88.4 fl (80-96); PLATELET COUNT 505 K/MM3 (134-434); RBC 2.73 M/mm3 (3.60-5.2); RDW 18.1 % (11.6-15.6); WHITE BLOOD COUNT 10.1 K/mm3 (4.0-10.0)
[2017-10-19] MEDS: INSULIN SLIDING SCALE (NOVOLOG) 1 VIAL SQ SCH ×3 (06:24→17:12)
[2017-10-19 09:05] LABS: HEMATOCRIT 25.5 % (32.4-45.2); HEMOGLOBIN 7.9 GM/dL (10.7-15.3); MCH 27.4 pg (25.7-33.7); MCHC 31.2 g/dl (32.0-36.0); MEAN CELL VOLUME 87.8 fl (80-96); MEAN PLT VOLUME 6.5 fl (7.5-11.1); PLATELET COUNT 500 K/MM3 (134-434); RDW 17.7 % (11.6-15.6); WHITE BLOOD COUNT 10.8 K/mm3 (4.0-10.0)
[2017-10-19 09:27] LABS: ANION GAP 12 (8-16); BLOOD UREA NITROGEN 42 mg/dL (7-18); CALCIUM 9.4 mg/dL (8.5-10.1); CHLORIDE 93 mmol/L (98-107); CO2 28 mmol/L (21-32); GLUCOSE,RANDOM 109 mg/dL (74-106); POTASSIUM 3.2 mmol/L (3.5-5.1); SODIUM 133 mmol/L (136-145)
[2017-10-19 09:28] LABS: CREATININE 4.7 mg/dL (0.55-1.02)
[2017-10-19] MEDS ORDERED: PT OWN MED DRAWER 7, Y5N ONE ×2 (10:07→22:08)
[2017-10-19] MEDS: PIPERACILLIN/TAZOB 2.25 GM 2.25 GM/50 ML BAG IVPB SCH (10:19)
[2017-10-19] MEDS: VITAMIN B COMPLEX W/C COMBO TABLET (FP) PO SCH (11:17)
[2017-10-19] MEDS: NYSTATIN POWDER 100,000 UNITS/GM - 15 GM TOPICAL POWDER TP SCH (11:17)
[2017-10-19] MEDS: ARTIFICIAL TEARS (POLYVINYL ALCOHOL 1.4%) OPTH DROPS OD SCH ×2 (11:17→23:43)
[2017-10-19] MEDS: LACTOBACILLUS ACIDOPHILUS 1 EACH TAB (FP) GT SCH ×2 (11:17→23:43)
[2017-10-19] MEDS: APIXABAN 5 MG TABLET PO SCH ×2 (11:18→23:43)
[2017-10-19] MEDS: levETIRAcetam 500 MG/5 ML ORAL SOLUTION (UNIT-DOSE CUPS) GT SCH ×2 (11:18→23:43)
[2017-10-19] MEDS: COLLAGENASE CLOSTRIDIUM HIST. 30 GRAMS TUBE TP SCH (11:24)
[2017-10-19] MEDS ORDERED: ACETAMINOPHEN 650 MG/20.3 ML ORAL SOLUTION (CUPS) PEG ONE (11:49)
--- NOTE | 2017-10-19 12:08 | PN ---
<Claudy Garcia - Last Filed: 10/19/17 12:55> Physical Exam: SUBJECTIVE: Patient seen and examined at bedside. No acute overnight events. Patient complains of 5/10 pain in her R arm and on her sacrum. Denies fevers, chills, nausea, vomiting. As per patient gets dialysis through left arm. OBJECTIVE: Vital Signs Period Temp Pulse Resp BP Sys/Crandall Pulse Ox Last 24 Hr 98 F-99.9 F 74-95 18-20 91-135/46-73 98 GENERAL: The patient is awake, alert, and fully oriented, in no acute distress. HEAD: Normal with no signs of trauma. LUNGS: Breath sounds equal, clear to auscultation bilaterally, no wheezes, no crackles, no accessory muscle use. HEART: 3/6 holosystolic murmur, S1, S2 without murmur, rub or gallop. ABDOMEN: Obese, Soft, nontender, nondistended, normoactive bowel sounds, no guarding, no rebound, no hepatosplenomegaly, no masses. EXTREMITIES: 2+ pulses, warm, well-perfused, no edema. Surgical scars noted on R arm field support representative of previous graft/fistula. large stage 4 Sacral decubitus, non-draining. NEUROLOGICAL: Cranial nerves II through XII grossly intact. Lip smacking observed PSYCH: Normal mood, normal affect. SKIN: Warm, dry, normal turgor, no rashes or lesions noted Laboratory Results - last 24 hr 10/18/17 10/18/17 10/18/17 06:10 08:54 11:38 WBC RBC Hgb Hct MCV MCH MCHC RDW Plt Count MPV Hypochromia 2+ Platelet Estimate Increased Platelet Comment No clotting detected Polychromasia 1+ Poikilocytosis 1+ Basophilic Stippling 1+ Anisocytosis 1+ Stomatocytes 1+ Sodium Potassium Chloride Carbon Dioxide Anion Gap BUN Creatinine POC Glucometer 128 Random Glucose Calcium Random Vancomycin Blood Type O POSITIVE Antibody Screen Negative Crossmatch See Detail 10/18/17 10/18/17 10/19/17 16:20 21:45 00:00 WBC 10.1 H RBC 2.73 L Hgb 7.6 L D Hct 24.1 L D MCV 88.4 MCH 27.6 MCHC 31.3 L RDW 18.1 H Plt Count 505 H MPV 7.0 L Hypochromia Platelet Estimate Platelet Comment Polychromasia Poikilocytosis Basophilic Stippling Anisocytosis Stomatocytes Sodium Potassium Chloride Carbon Dioxide Anion Gap BUN Creatinine POC Glucometer 167 105 Random Glucose Calcium Random Vancomycin Blood Type Antibody Screen Crossmatch 10/19/17 10/19/17 10/19/17 06:07 08:44 08:44 WBC 10.8 H RBC 2.90 L Hgb 7.9 L Hct 25.5 L MCV 87.8 MCH 27.4 MCHC 31.2 L RDW 17.7 H Plt Count 500 H MPV 6.5 L Hypochromia Platelet Estimate Platelet Comment Polychromasia Poikilocytosis Basophilic Stippling Anisocytosis Stomatocytes Sodium 133 L Potassium 3.2 L Chloride 93 L Carbon Dioxide 28 Anion Gap 12 BUN 42 H Creatinine 4.7 H POC Glucometer 110 Random Glucose 109 H Calcium 9.4 Random Vancomycin Blood Type Antibody Screen Crossmatch 10/19/17 09:45 WBC RBC Hgb Hct MCV MCH MCHC RDW Plt Count MPV Hypochromia Platelet Estimate Platelet Comment Polychromasia Poikilocytosis Basophilic Stippling Anisocytosis Stomatocytes Sodium Potassium Chloride Carbon Dioxide Anion Gap BUN Creatinine POC Glucometer Random Glucose Calcium Random Vancomycin 18.177 Blood Type Antibody Screen Crossmatch Active Medications Generic Name Dose Route Start Last Admin Trade Name Freq PRN Reason Stop Dose Admin Acetaminophen 650 mg 10/17/17 19:22 Tylenol - PO Q4H PRN FEVER Acetaminophen 1,000 mg 10/19/17 11:49 Tylenol Oral Solution - PEG 10/19/17 11:50 ONCE ONE Apixaban 5 mg 10/18/17 10:00 10/19/17 11:18 Eliquis - PO 5 mg BID ROSELYN Administration Artificial Tears 1 drop 10/18/17 10:00 10/19/17 11:17 Artificial Tears OD 1 drop BID ROSELYN Administration Collagenase 1 applic 10/18/17 10:00 10/18/17 10:55 Santyl - TP 1 applic DAILY ROSELYN Administration Piperacillin/Tazobactam/Dextrose 2.25 gm in 50 mls @ 100 mls/hr 10/18/17 10: 00 10/19/17 10:19 Zosyn 2.25gm Ivpb (Premix) IVPB 100 mls/hr BID ROSELYN Administration Protocol Insulin Aspart 1 vial 10/18/17 07:00 10/19/17 06:24 Novolog Vial Sliding Scale - SQ Not Given TIDAC [facility] Protocol Ipratropium Man[place] 1 amp 10/17/17 23:00 Atrovent 0.02% Nebulizer - NEB Q4H PRN SHORTNESS OF BREATH Lactobacillus Acidophilus 1 tab 10/18/17 10:00 10/19/17 11:17 Bacid - GT 1 tab BID ROSELYN Administration Levetiracetam 500 mg 10/17/17 23:00 10/19/17 11:18 Keppra Oral Solution - GT 500 mg BID ROSELYN Administration Multivitamins 1 each 10/18/17 10:00 10/19/17 11:17 Total B With C - PO 1 each DAILY ROSELYN Administration Nystatin 1 applic 10/18/17 10:00 10/19/17 11:17 Nystop Powder - TP 1 applic DAILY ROSELYN Administration Paricalcitol 2 mcg 10/20/17 10:00 Zemplar - IVPUSH [id number] [facility] ASSESSMENT/PLAN: 62 year old female with a hx of sacral decubitus, tardive diskinesia, ESRD on HD , HTN, SVC syndrome/clot, iron-deficiency anemia, Type 2 diabetes, GERD, and epilepsy is admitted to the hospital for sepsis 2/2 sacral decubitus #Sepsis 2/2 sacral ulcer: -continue zosyn, vancomycin per ID recommendations -appreciate ID consultation -blood cultures negative -wound cultures grew multiple organisms, await sensitivities -lactic acid normalized -echocardiogram -consult Dr. Perez appreciated -tylenol 650 PRN pain #Tardive Dyskinesia: stable, was due to antipsychotic use - stopped 6 months ago -appreciate neuro consultation #ESRD: creatinine increasing -HD planned for friday -appreciate nephrology recommendations #Anemia: hgb 7.9, stable -transfuse as necessary if hgb < 7 #Seizure Disorder: stable -continue keppra 500 BID #SVC syndrome/clot: stable -continue eliquis 5mg BID #FEN -tube feed nepro -careful with repletion -no standing fluids #Prophylaxis -On eliquis #Disposition: -Continue to monitor on med surg Visit type - Emergency Visit Emergency Visit: No - New Patient This patient is new to me today: Yes Date on this admission: 10/19/17 - Critical Care Critical Care patient: No <Susan Hernandez - Last Filed: 10/19/17 19:22> Physical Exam: Patient seen and examined agree with the plan. CBCD WBC 10.8 K/mm3 (4.0-10.0) H 10/19/17 08:44 RBC 2.90 M/mm3 (3.60-5.2) L 10/19/17 08:44 Hgb 7.9 GM/dL (10.7-15.3) L 10/19/17 08:44 Hct 25.5 % (32.4-45.2) L 10/19/17 08:44 MCV 87.8 fl (80-96) 10/19/17 08:44 MCHC 31.2 g/dl (32.0-36.0) L 10/19/17 08:44 RDW 17.7 % (11.6-15.6) H 10/19/17 08:44 Plt Count 500 K/MM3 (134-434) H 10/19/17 08:44 MPV 6.5 fl (7.5-11.1) L 10/19/17 08:44 CMP Sodium 133 mmol/L (136-145) L 10/19/17 08:44 Potassium 3.2 mmol/L (3.5-5.1) L 10/19/17 08:44 Chloride 93 mmol/L (98-107) L 10/19/17 08:44 Carbon Dioxide 28 mmol/L (21-32) 10/19/17 08:44 Anion Gap 12 (8-16) 10/19/17 08:44 BUN 42 mg/dL (7-18) H 10/19/17 08:44 Creatinine 4.7 mg/dL (0.55-1.02) H 10/19/17 08:44 Creat Clearance w eGFR 14.17 (>60) 10/18/17 06:10 Random Glucose 109 mg/dL (74-106) H 10/19/17 08:44 Calcium 9.4 mg/dL (8.5-10.1) 10/19/17 08:44 Total Bilirubin 0.6 mg/dL (0.2-1.0) D 10/18/17 06:10 AST 25 U/L (15-37) 02/03/18 06:10 ALT 22 U/L (12-78) 10/18/17 06:10 Alkaline Phosphatase 149 U/L (45-117) H 10/18/17 06:10 Total Protein 7.1 g/dl (6.4-8.2) 10/18/17 06:10 Albumin 2.6 g/dl (3.4-5.0) L 10/18/17 06:10 CARDIAC ENZYMES Creatine Kinase 448 IU/L (26-192) H 10/17/17 14:39 Troponin I < 0.02 ng/ml (0.00-0.05) 10/17/17 14:39 Current Medications Generic Name Dose Route Start Last Admin Trade Name Freq PRN Reason Stop Dose Admin Acetaminophen 650 mg 10/17/17 19:22 10/19/17 17:49 Tylenol - PO 650 mg Q4H PRN Administration FEVER Apixaban 5 mg 10/18/17 10:00 10/19/17 11:18 Eliquis - PO 5 mg BID ROSELYN Administration Artificial Tears 1 drop 10/18/17 10:00 10/19/17 11:17 Artificial Tears OD 1 drop BID ROSELYN Administration Collagenase 1 applic 10/18/17 10:00 10/18/17 10:55 Santyl - TP 1 applic DAILY ROSELYN Administration Piperacillin/Tazobactam/Dextrose 2.25 gm in 50 mls @ 100 mls/hr 10/18/17 10: 00 10/19/17 10:19 Zosyn 2.25gm Ivpb (Premix) IVPB 100 mls/hr BID ROSELYN Administration Protocol Insulin Aspart 1 vial 10/18/17 07:00 10/19/17 17:12 Novolog Vial Sliding Scale - SQ Not Given TIDAC [facility] Protocol Ipratropium Manly 1 amp 10/17/17 23:00 Atrovent 0.02% Nebulizer - NEB Q4H PRN SHORTNESS OF BREATH Lactobacillus Acidophilus 1 tab 10/18/17 10:00 10/19/17 11:17 Bacid - GT 1 tab BID ROSELYN Administration Levetiracetam 500 mg 10/17/17 23:00 10/19/17 11:18 Keppra Oral Solution - GT 500 mg BID ROSELYN Administration Multivitamins 1 each 10/18/17 10:00 10/19/17 11:17 Total B With C - PO 1 each DAILY ROSELYN Administration Nystatin 1 applic 10/18/17 10:00 10/19/17 11:17 Nystop Powder - TP 1 applic DAILY [facility] Administration Paricalcitol 2 mcg 10/20/17 10:00 Zemplar - IVPUSH [id number]@1000 [facility] Home Medications Medication Instructions Recorded Acetaminophen 650 mg GT Q6H PRN 10/17/17 Amlodipine Besylate [Norvasc -] 2.5 mg GT DAILY 10/17/17 Apixaban [Eliquis] 5 mg GT BID 10/17/17 Collagenase Clostridium Hist. 1 applic TP DAILY 10/17/17 [Santyl] Insulin (LOG) Aspart [NovoLOG -] 0 units SQ BID 10/17/17 Insulin NPH Hum/Reg Insulin Hm 8 unit SQ DAILY 10/17/17 [Novolin 70-30 100 Unit/ml Vial] Ipratropium 0.02% Nebulizer 1 neb NEB Q4H 10/17/17 [Atrovent] Lactobacillus Acidophilus 1 each GT BID 10/17/17 [Acidophilus] Levetiracetam [Keppra Oral 500 mg GT Q12H 10/17/17 Solution -] Nystatin Powder [Nystop Topical 60 gm TP DAILY 10/17/17 Powder -] Paricalcitol 2 mcg IV DAILY 10/17/17 Polyvinyl Alcohol [Artificial 15 ml OP BID 10/17/17 Tears] Sevelamer Carbonate 800 mg GT Q8H 10/17/17 Vitamin B Complex/Folic Acid 2,000 mcg GT DAILY 10/17/17 [B-Stress Capsules]
--- NOTE | 2017-10-19 14:40 | CONSULT ---
Consult - text type - Consultation Consultation Note: NEUROLOGY CONSULTATION is greatly appreciated: This 62 yo woman is a [facility] resident with h/o Chronic schizophrenia, HTN, DM, ASHD, AFIB and ESRD on HD. Maintained on amlodipine, eliquis, atrovent, insulins. Apparently, her psyche meds were stopped 6 mos ago. S/P left CVA with right hemiparesis and seizure disorder for which she receives levetiracetam elixor, 500 mg BID. Chronic infections include a stage IV sacral decubitus ulcer and C. difficile enterocolitis for which she receives Vancomycin and Zosyn. On 10/17/17 patient had HD and then wound care where she had decreased responsiveness and increased facial twitching suggesting a seizure. Found to have anemia, now s/p transfusion. Continues on Zosyn and vancomycin According to RN and her health aide, patient is much more alert, responsive and communicative today. CT of head (reviewed); Moderately severe, diffuse, cerebral atrophy and diffuse microvascular changes. ROSEMARY: Neck supple, obese, No bruits. NEURO: Awake, alert. [address], month or year. Sparse, perseverative speech. Follows simple commands. +Glabella, snout. Left grasp. Frequent, stereotyped [id number] dyskinetic movt's. Reflex chewing on her nasal O2 canula. Full khoury to threat. Full EOM's. Gag present. Moves L>>R arms. Decreased movements both legs. Right leg rests everted. Areflexic in legs. Plantars silent. Decreased response to pinch both feet. Promptly withdraws both hands. IMP: 1. Moderately severe, B/L, cerebral dysfunction (OMS, Chronic). 2. Left cerebral accentualtion s/p lacunar CVA. 3. Facial mov'ts represent Tardive Dyskinesia (not seizures) and will increase after discontinuation of Neuroleptics. 4. Mentation and facial movements will all increase with Tocxic- Metabolic encephalopathy (due to infection). 5. Seizure disorder by history. 6. Severe diabetic peripheral neuropathy. SUGGEST: Continue antibiotics, wound care, and current regimen. Continue levetiracetam 500 mg elixor q 12 hrs via GT. Check B12, TSH, RPR. Thank you very much, Bulmaro Kirby MD
[2017-10-19] MEDS: ACETAMINOPHEN 325 MG TABLET (FP) PO PRN (17:49)
--- NOTE | 2017-10-19 18:24 | PN ---
Progress Note, Physician History of Present Illness: Pt seen and examined at bedside. She is now more awake and alert than she was yesterday. - Current Medication List Current Medications: Active Medications Acetaminophen (Tylenol -) 650 mg PO Q4H PRN PRN Reason: FEVER Last Admin: 10/19/17 17:49 Dose: 650 mg Apixaban (Eliquis -) 5 mg PO BID [facility] Last Admin: 10/19/17 11:18 Dose: 5 mg Artificial Tears (Artificial Tears) 1 drop OD BID ROSELYN Last Admin: 10/19/17 11:17 Dose: 1 drop Collagenase (Santyl -) 1 applic TP DAILY [facility] Last Admin: 10/18/17 10:55 Dose: 1 applic Piperacillin/Tazobactam/Dextrose (Zosyn 2.25gm Ivpb (Premix)) 2.25 gm in 50 mls @ 100 mls/hr IVPB BID ROSELYN PRN Reason: Protocol Last Admin: 10/19/17 10:19 Dose: 100 mls/hr Insulin Aspart (Novolog Vial Sliding Scale -) 1 vial SQ TIDAC ROSELYN PRN Reason: Protocol Last Admin: 10/19/17 17:12 Dose: Not Given Ipratropium Marion (Atrovent 0.02% Nebulizer -) 1 amp NEB Q4H PRN PRN Reason: SHORTNESS OF BREATH Lactobacillus Acidophilus (Bacid -) 1 tab GT BID [facility] Last Admin: 10/19/17 11:17 Dose: 1 tab Levetiracetam (Keppra Oral Solution -) 500 mg GT BID [facility] Last Admin: 10/19/17 11:18 Dose: 500 mg Multivitamins (Total B With C -) 1 each PO DAILY [facility] Last Admin: 10/19/17 11:17 Dose: 1 each Nystatin (Nystop Powder -) 1 applic TP DAILY [facility] Last Admin: 10/19/17 11:17 Dose: 1 applic Paricalcitol (Zemplar -) 2 mcg IVPUSH [id number] [facility] - Objective Vital Signs: Vital Signs Temperature 98.3 F 10/19/17 14:00 Pulse Rate 79 10/19/17 14:00 Respiratory Rate 18 10/19/17 14:00 Blood Pressure 95/42 10/19/17 14:00 O2 Sat by Pulse Oximetry (%) 98 10/19/17 09:00 Constitutional: Yes: Calm Eyes: Yes: Conjunctiva Clear Cardiovascular: Yes: S1, S2 Respiratory: Yes: CTA Bilaterally Gastrointestinal: Yes: Soft, Abdomen, Obese Genitourinary: Yes: Incontinence Musculoskeletal: Yes: Muscle Weakness Edema: Yes Neurological: Yes: Oriented Labs: CBC, BMP 10/19/17 08:44 10/19/17 08:44 INR, PTT INR 1.42 (0.82-1.09) H 10/18/17 06:10 Problem List - Problems (1) Decubital ulcer Code(s): L89.90 - PRESSURE ULCER OF UNSPECIFIED SITE, UNSPECIFIED STAGE (2) ESRD (end stage renal disease) Code(s): N18.6 - END STAGE RENAL DISEASE (3) Sepsis Code(s): A41.9 - SEPSIS, UNSPECIFIED ORGANISM Assessment/Plan Current Medications Generic Name Dose Route Start Last Admin Trade Name Freq PRN Reason Stop Dose Admin Acetaminophen 650 mg 10/17/17 19:22 10/19/17 17:49 Tylenol - PO 650 mg Q4H PRN Administration FEVER Apixaban 5 mg 10/18/17 10:00 10/19/17 11:18 Eliquis - PO 5 mg BID ROSELYN Administration Artificial Tears 1 drop 10/18/17 10:00 10/19/17 11:17 Artificial Tears OD 1 drop BID ROSELYN Administration Collagenase 1 applic 10/18/17 10:00 10/18/17 10:55 Santyl - TP 1 applic DAILY ROSELYN Administration Piperacillin/Tazobactam/Dextrose 2.25 gm in 50 mls @ 100 mls/hr 10/18/17 10: 00 10/19/17 10:19 Zosyn 2.25gm Ivpb (Premix) IVPB 100 mls/hr BID ROSELYN Administration Protocol Insulin Aspart 1 vial 10/18/17 07:00 10/19/17 17:12 Novolog Vial Sliding Scale - SQ Not Given TIDAC [facility] Protocol Ipratropium [place] 1 amp 10/17/17 23:00 Atrovent 0.02% Nebulizer - NEB Q4H PRN SHORTNESS OF BREATH Lactobacillus Acidophilus 1 tab 10/18/17 10:00 10/19/17 11:17 Bacid - GT 1 tab BID ROSELYN Administration Levetiracetam 500 mg 10/17/17 23:00 10/19/17 11:18 Keppra Oral Solution - GT 500 mg BID ROSELYN Administration Multivitamins 1 each 10/18/17 10:00 10/19/17 11:17 Total B With C - PO 1 each DAILY ROSELYN Administration Nystatin 1 applic 10/18/17 10:00 10/19/17 11:17 Nystop Powder - TP 1 applic DAILY ROSELYN Administration Paricalcitol 2 mcg 10/20/17 10:00 Zemplar - IVPUSH MoWeFr@1000 ROSELYN Impression 1. ESRD 2. anemia 3. change in mental status 4. epilepsy 5. htn 6. dm 7. gerd 8. obesity Plan - HD in am - orders written - neuro status is improving - 3 k bath - can give prbc on HD - renal dose abx - will follow Dr Medellin
[2017-10-20] MEDS: INSULIN SLIDING SCALE (NOVOLOG) 1 VIAL SQ SCH ×3 (06:00→17:11)
[2017-10-20 07:18] LABS: MAGNESIUM 2.6 mg/dL (1.8-2.4); PHOSPHOROUS 4.3 mg/dL (2.5-4.9)
[2017-10-20] MEDS: PARICALCITOL 5 MCG/ML VIAL IVPUSH SCH ×2 (07:58→12:04)
[2017-10-20 08:42] LABS: HEMATOCRIT 24.5 % (32.4-45.2); HEMOGLOBIN 7.6 GM/dL (10.7-15.3); MCH 27.4 pg (25.7-33.7); MCHC 31.2 g/dl (32.0-36.0); MEAN CELL VOLUME 87.9 fl (80-96); PLATELET COUNT 552 K/MM3 (134-434); RBC 2.78 M/mm3 (3.60-5.2); RDW 18.2 % (11.6-15.6); WHITE BLOOD COUNT 11.8 K/mm3 (4.0-10.0)
[2017-10-20 09:13] LABS: ALBUMIN 2.3 g/dl (3.4-5.0); ALK PHOS 167 U/L (45-117); ANION GAP 14 (8-16); BILIRUBIN,TOTAL 0.5 mg/dL (0.2-1.0); BLOOD UREA NITROGEN 51 mg/dL (7-18); CALCIUM 9.2 mg/dL (8.5-10.1); CHLORIDE 96 mmol/L (98-107); CO2 26 mmol/L (21-32); CREATININE 5.7 mg/dL (0.55-1.02); GLUCOSE,RANDOM 98 mg/dL (74-106); POTASSIUM 3.6 mmol/L (3.5-5.1); SGOT/AST 25 U/L (15-37); SGPT/ALT 23 U/L (12-78); SODIUM 136 mmol/L (136-145); TOT PROT 6.9 g/dl (6.4-8.2)
[2017-10-20] MEDS ORDERED: PT OWN MED DRAWER 7, Y5N ONE (11:50)
[2017-10-20] MEDS: COLLAGENASE CLOSTRIDIUM HIST. 30 GRAMS TUBE TP SCH (12:02)
[2017-10-20] MEDS: VITAMIN B COMPLEX W/C COMBO TABLET (FP) PO SCH (12:03)
[2017-10-20] MEDS: levETIRAcetam 500 MG/5 ML ORAL SOLUTION (UNIT-DOSE CUPS) GT SCH ×2 (12:03→23:24)
[2017-10-20] MEDS: LACTOBACILLUS ACIDOPHILUS 1 EACH TAB (FP) GT SCH ×2 (12:03→23:25)
[2017-10-20] MEDS: APIXABAN 5 MG TABLET PO SCH ×2 (12:03→23:24)
[2017-10-20] MEDS: NYSTATIN POWDER 100,000 UNITS/GM - 15 GM TOPICAL POWDER TP SCH ×2 (12:05→12:08)
[2017-10-20] MEDS: ARTIFICIAL TEARS (POLYVINYL ALCOHOL 1.4%) OPTH DROPS OD SCH (12:05)
--- NOTE | 2017-10-20 12:07 | CONSULT ---
- Consultation REQUESTING PROVIDER: CONSULT REQUEST: We have been asked to surgically evaluate this patient for ( specify). PCP:Susan Hernandez HPI: Called to keon 62yo female with PMHx noted below. Has chronic stage 4 sacral. 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 [Santyl] 1 applic TP DAILY Insulin (LOG) Aspart [NovoLOG -] 0 units SQ BID Insulin NPH Hum/Reg Insulin Hm [Novolin 70-30 100 Unit/ml Vial] 8 unit SQ DAILY Ipratropium 0.02% Nebulizer [Atrovent] 1 neb NEB Q4H Lactobacillus Acidophilus [Acidophilus] 1 each GT BID Levetiracetam [Keppra Oral Solution -] 500 mg GT Q12H Nystatin Powder [Nystop Topical Powder -] 60 gm TP DAILY Paricalcitol 2 mcg IV DAILY Polyvinyl Alcohol [Artificial Tears] 15 ml OP BID Sevelamer Carbonate 800 mg GT Q8H Vitamin B Complex/Folic Acid [B-Stress Capsules] 2,000 mcg GT DAILY Allergies: NKDA REVIEW OF SYSTEMS: Systems reviewed and considered negative except for whats contained in HPI. PE: GENERAL: Awake, alert, nad (s/p HD 10/20/17 --> removed 2kg) LUE: avf/graft with palpable thrill. + radial pulse. hand warm ABD: obese body habitus. soft. nt. Sacrum: approx 8cm x 8cmx 8cm stage 4 decubitus ulcer, bone exposed. undermining of tissue at the 9 o'clock position approx 1.5". No purulent drainage or odor Last Vital Signs Temp Pulse Resp BP Pulse Ox 98.0 F 80 18 131/74 96 10/20/17 07:15 10/20/17 10:55 10/20/17 10:55 10/20/17 10:55 10/19/17 21:00 Blood Type Blood Type O POSITIVE 10/18/17 11:10 CBC, BMP 10/20/17 07:00 10/20/17 10:45 INR, PTT INR 1.42 (0.82-1.09) H 10/18/17 06:10 Microbiology 10/18/17 03:30 Wound Wound Culture - Final Escherichia Coli Morganella Morganii Pending Organism Pending Organism#2 10/17/17 14:39 Blood - Peripheral Venous Blood Culture - Prelim NO GROWTH AFTER 48 HOURS, INCUBATION TO CONTINUE x3 days Problem List - Problems (1) Decubital ulcer Assessment/Plan: Patient could benefit from a wound VAC while here in the hospital and continued at SNF. Will initiate therapy. All supplies ordered and awaiting for delivery. Case management notified. Above plan discussed with Dr. Perez and agrees Code(s): L89.90 - PRESSURE ULCER OF UNSPECIFIED SITE, UNSPECIFIED STAGE (2) ESRD (end stage renal disease) Code(s): N18.6 - END STAGE RENAL DISEASE Visit type - Case Type Case Type: ED Admission - Emergency Emergency Visit: Yes ED Registration Date: 10/17/17 Care time: The patient presented to the Emergency Department on the above date and was hospitalized for further evaluation of their emergent condition. - New patient This patient is new to me today: Yes Date on this admission: 10/20/17
--- NOTE | 2017-10-20 12:56 | PN ---
<Claudy Garcia - Last Filed: 10/20/17 12:58> Physical Exam: SUBJECTIVE: Patient seen and examined in dialysis. She does not complain of any chest pain, n/v/d, SOB, fevers, chills. States that she has pain in her sacral area. OBJECTIVE: Vital Signs Period Temp Pulse Resp BP Sys/Crandall Pulse Ox Last 24 Hr 98.0 F-98.8 F 60-93 18-24 89-133/42-74 96 GENERAL: The patient is awake, alert, and fully oriented, in no acute distress. HEAD: Normal with no signs of trauma. LUNGS: Breath sounds equal, clear to auscultation bilaterally, no wheezes, no crackles, no accessory muscle use. HEART: 3/6 holosystolic murmur, S1, S2 without murmur, rub or gallop. ABDOMEN: Obese, Soft, nontender, nondistended, normoactive bowel sounds, no guarding, no rebound, no hepatosplenomegaly, no masses. EXTREMITIES: 2+ pulses, warm, well-perfused, no edema. Surgical scars noted on R arm loan representative of previous graft/fistula. large stage 4 Sacral decubitus, non-draining. NEUROLOGICAL: Cranial nerves II through XII grossly intact. Lip smacking observed PSYCH: Normal mood, normal affect. SKIN: Warm, dry, normal turgor, no rashes or lesions noted Laboratory Results - last 24 hr 10/18/17 10/19/17 10/20/17 11:10 16:56 06:00 WBC RBC Hgb Hct MCV MCH MCHC RDW Plt Count MPV Sodium Potassium Chloride Carbon Dioxide Anion Gap BUN Creatinine Creat Clearance w eGFR POC Glucometer 118 112 Random Glucose Calcium Phosphorus Magnesium Total Bilirubin AST ALT Alkaline Phosphatase Total Protein Albumin Blood Type O POSITIVE Crossmatch See Detail 10/20/17 10/20/17 10/20/17 06:30 07:00 07:00 WBC 11.8 H RBC 2.78 L Hgb 7.6 L Hct 24.5 L MCV 87.9 MCH 27.4 MCHC 31.2 L RDW 18.2 H Plt Count 552 H MPV 7.0 L Sodium 136 Potassium 3.6 Chloride 96 L Carbon Dioxide 26 Anion Gap 14 BUN 51 H Creatinine 5.7 H Creat Clearance w eGFR 7.54 POC Glucometer Random Glucose 98 Calcium 9.2 Phosphorus 4.3 Magnesium 2.6 H Total Bilirubin 0.5 AST 25 ALT 23 Alkaline Phosphatase 167 H Total Protein 6.9 Albumin 2.3 L Blood Type Crossmatch 10/20/17 10/20/17 10:45 12:17 WBC RBC Hgb Hct MCV MCH MCHC RDW Plt Count MPV Sodium Potassium Chloride Carbon Dioxide Anion Gap BUN 16 D Creatinine 2.0 H Creat Clearance w eGFR POC Glucometer 106 Random Glucose Calcium Phosphorus Magnesium Total Bilirubin AST ALT Alkaline Phosphatase Total Protein Albumin Blood Type Crossmatch Active Medications Generic Name Dose Route Start Last Admin Trade Name Freq PRN Reason Stop Dose Admin Acetaminophen 650 mg 10/17/17 19:22 10/19/17 17:49 Tylenol - PO 650 mg Q4H PRN Administration FEVER Apixaban 5 mg 10/18/17 10:00 10/20/17 12:03 Eliquis - PO 5 mg BID ROSELYN Administration Artificial Tears 1 drop 10/18/17 10:00 10/20/17 12:05 Artificial Tears OD Not Given BID ROSELYN Collagenase 1 applic 10/18/17 10:00 10/20/17 12:02 Santyl - TP Not Given DAILY ROSELYN Piperacillin/Tazobactam/Dextrose 2.25 gm in 50 mls @ 100 mls/hr 10/18/17 10: 00 10/19/17 10:19 Zosyn 2.25gm Ivpb (Premix) IVPB 100 mls/hr BID ROSELYN Administration Protocol Insulin Aspart 1 vial 10/18/17 07:00 10/20/17 12:25 Novolog Vial Sliding Scale - SQ Not Given TIDAC [facility] Protocol Ipratropium [place] 1 amp 10/17/17 23:00 Atrovent 0.02% Nebulizer - NEB Q4H PRN SHORTNESS OF BREATH Lactobacillus Acidophilus 1 tab 10/18/17 10:00 10/20/17 12:03 Bacid - GT 1 tab BID ROSELYN Administration Levetiracetam 500 mg 10/17/17 23:00 10/20/17 12:03 Keppra Oral Solution - GT 500 mg BID ROSELYN Administration Multivitamins 1 each 10/18/17 10:00 10/20/17 12:03 Total B With C - PO 1 each DAILY ROSELYN Administration Nystatin 1 applic 10/18/17 10:00 10/20/17 12:08 Nystop Powder - TP 1 applic DAILY ROSELYN Administration Paricalcitol 2 mcg 10/20/17 10:00 10/20/17 12:04 Zemplar - IVPUSH Not Given [email or web address] [facility] ASSESSMENT/PLAN: 62 year old female with a hx of sacral decubitus, tardive diskinesia, ESRD on HD , HTN, SVC syndrome/clot, iron-deficiency anemia, Type 2 diabetes, GERD, and epilepsy is admitted to the hospital for sepsis 2/2 sacral decubitus #Sepsis 2/2 sacral ulcer: -continue zosyn -appreciate ID consultation -blood cultures negative -wound cultures grew multiple organisms, await sensitivities -lactic acid normalized -echocardiogram -consult Dr. Perez appreciated - will put on wound vac and continue treatment at a SNF. -tylenol 650 PRN pain #Tardive Dyskinesia: stable, was due to antipsychotic use - stopped 6 months ago -appreciate neuro consultation #ESRD: creatinine increasing -HD planned for friday -appreciate nephrology recommendations #Anemia: hgb 7.9, stable -transfuse as necessary if hgb < 7 #Seizure Disorder: stable -continue keppra 500 BID #SVC syndrome/clot: stable -continue eliquis 5mg BID #FEN -tube feed nepro -careful with repletion -no standing fluids #Prophylaxis -On eliquis #Disposition: -Continue to monitor on med surg Visit type - Emergency Visit Emergency Visit: No - New Patient This patient is new to me today: No - Critical Care Critical Care patient: No <Susan Hernandez - Last Filed: 10/20/17 19:21> Physical Exam: Patient seen and examined , agree with the plan. Vital Signs Temperature 98.9 F 10/20/17 18:38 Pulse Rate 86 10/20/17 18:38 Respiratory Rate 20 10/20/17 18:38 Blood Pressure 102/49 10/20/17 18:38 O2 Sat by Pulse Oximetry (%) 96 10/20/17 09:00 CBCD WBC 11.8 K/mm3 (4.0-10.0) H 10/20/17 07:00 RBC 2.78 M/mm3 (3.60-5.2) L 10/20/17 07:00 Hgb 7.6 GM/dL (10.7-15.3) L 10/20/17 07:00 Hct 24.5 % (32.4-45.2) L 10/20/17 07:00 MCV 87.9 fl (80-96) 10/20/17 07:00 MCHC 31.2 g/dl (32.0-36.0) L 10/20/17 07:00 RDW 18.2 % (11.6-15.6) H 10/20/17 07:00 Plt Count 552 K/MM3 (134-434) H 10/20/17 07:00 MPV 7.0 fl (7.5-11.1) L 10/20/17 07:00 CMP Sodium 136 mmol/L (136-145) 10/20/17 07:00 Potassium 3.6 mmol/L (3.5-5.1) 10/20/17 07:00 Chloride 96 mmol/L (98-107) L 10/20/17 07:00 Carbon Dioxide 26 mmol/L (21-32) 10/20/17 07:00 Anion Gap 14 (8-16) 10/20/17 07:00 BUN 16 mg/dL (7-18) D 10/20/17 10:45 Creatinine 2.0 mg/dL (0.55-1.02) H 10/20/17 10:45 Creat Clearance w eGFR 7.54 (>60) 10/20/17 07:00 Random Glucose 98 mg/dL (74-106) 10/20/17 07:00 Calcium 9.2 mg/dL (8.5-10.1) 10/20/17 07:00 Total Bilirubin 0.5 mg/dL (0.2-1.0) 10/20/17 07:00 AST 25 U/L (15-37) 10/20/17 07:00 ALT 23 U/L (12-78) 10/20/17 07:00 Alkaline Phosphatase 167 U/L (45-117) H 10/20/17 07:00 Total Protein 6.9 g/dl (6.4-8.2) 10/20/17 07:00 Albumin 2.3 g/dl (3.4-5.0) L 10/20/17 07:00 CARDIAC ENZYMES Creatine Kinase 448 IU/L (26-192) H 10/17/17 14:39 Troponin I < 0.02 ng/ml (0.00-0.05) 10/17/17 14:39 Current Medications Generic Name Dose Route Start Last Admin Trade Name Anita PRN Reason Stop Dose Admin Acetaminophen 650 mg 10/17/17 19:22 10/19/17 17:49 Tylenol - PO 650 mg Q4H PRN Administration FEVER Apixaban 5 mg 10/18/17 10:00 10/20/17 12:03 Eliquis - PO 5 mg BID ROSELYN Administration Artificial Tears 1 drop 10/18/17 10:00 10/20/17 12:05 Artificial Tears OD Not Given BID [facility] Piperacillin/Tazobactam/Dextrose 2.25 gm in 50 mls @ 100 mls/hr 10/18/17 10: 00 10/20/17 18:26 Zosyn 2.25gm Ivpb (Premix) IVPB Not Given BID [facility] Protocol Insulin Aspart 1 vial 10/18/17 07:00 10/20/17 17:11 Novolog Vial Sliding Scale - SQ Not Given TIDAC [facility] Protocol Ipratropium [place] 1 amp 10/17/17 23:00 Atrovent 0.02% Nebulizer - NEB Q4H PRN SHORTNESS OF BREATH Lactobacillus Acidophilus 1 tab 10/18/17 10:00 10/20/17 12:03 Bacid - GT 1 tab BID ROSELYN Administration Levetiracetam 500 mg 10/17/17 23:00 10/20/17 12:03 Keppra Oral Solution - GT 500 mg BID ROSELYN Administration Multivitamins 1 each 10/18/17 10:00 10/20/17 12:03 Total B With C - PO 1 each DAILY ROSELYN Administration Nystatin 1 applic 10/18/17 10:00 10/20/17 12:08 Nystop Powder - TP 1 applic DAILY [facility] Administration Paricalcitol 2 mcg 10/20/17 10:00 10/20/17 12:04 Zemplar - IVPUSH Not Given [email or web address] [facility] Home Medications Medication Instructions Recorded Acetaminophen 650 mg GT Q6H PRN 10/17/17 Amlodipine Besylate [Norvasc -] 2.5 mg GT DAILY 10/17/17 Apixaban [Eliquis] 5 mg GT BID 10/17/17 Collagenase Clostridium Hist. 1 applic TP DAILY 10/17/17 [Santyl] Insulin (LOG) Aspart [NovoLOG -] 0 units SQ BID 10/17/17 Insulin NPH Hum/Reg Insulin Hm 8 unit SQ DAILY 10/17/17 [Novolin 70-30 100 Unit/ml Vial] Ipratropium 0.02% Nebulizer 1 neb NEB Q4H 10/17/17 [Atrovent] Lactobacillus Acidophilus 1 each GT BID 10/17/17 [Acidophilus] Levetiracetam [Keppra Oral 500 mg GT Q12H 10/17/17 Solution -] Nystatin Powder [Nystop Topical 60 gm TP DAILY 10/17/17 Powder -] Paricalcitol 2 mcg IV DAILY 10/17/17 Polyvinyl Alcohol [Artificial 15 ml OP BID 10/17/17 Tears] Sevelamer Carbonate 800 mg GT Q8H 10/17/17 Vitamin B Complex/Folic Acid 2,000 mcg GT DAILY 10/17/17 [B-Stress Capsules]
--- NOTE | 2017-10-20 13:43 | CONSULT ---
Admitting History and Physical - Primary Care Physician PCP: Susan Hernandez - Admission History of Present Illness: Per emr: 62 year old female with a hx of sacral decubitus, tardive diskinesia, ESRD on HD , HTN, SVC syndrome/clot, iron-deficiency anemia, Type 2 diabetes, GERD, and epilepsy is admitted to the hospital for sepsis 2/2 sacral decubitus Per neurology: NEURO: Awake, alert. Ox [address] Not hospital, month or year. Sparse, perseverative speech. Follows simple commands. +Glabella, snout. Left grasp. Frequent, stereotyped ulggtc-pop-icquge dyskinetic movt's. Reflex chewing on her nasal O2 canula. Full khoury to threat. Full EOM's. Gag present. Moves L>>R arms. Decreased movements both legs. Right leg rests everted. Areflexic in legs. Plantars silent. Decreased response to pinch both feet. Promptly withdraws both hands. IMP: 1. Moderately severe, B/L, cerebral dysfunction (OMS, Chronic). 2. Left cerebral accentualtion s/p lacunar CVA. 3. Facial mov'ts represent Tardive Dyskinesia (not seizures) and will increase after discontinuation of Neuroleptics. 4. Mentation and facial movements will all increase with Toxic-Metabolic encephalopathy (due to infection). 5. Seizure disorder by history. 6. Severe diabetic peripheral neuropathy. Selected Entries 10/17/17 10/17/17 10/18/17 13:43 18:27 01:40 Breakfast Temperature 100.0 F H 98.2 F 98 F 10/18/17 10/18/17 10/18/17 05:49 09:00 13:39 Breakfast Temperature 98.4 F 100.3 F H 99.9 F H 10/18/17 10/18/17 10/18/17 14:34 17:15 17:30 Breakfast Temperature 99.6 F 99.2 F 99.2 F 10/18/17 10/18/17 10/19/17 18:00 21:00 01:04 Breakfast Temperature 99.2 F 99.9 F H 98.5 F 10/19/17 10/19/17 10/19/17 04:44 14:00 18:00 Breakfast Temperature 98 F 98.3 F 98.1 F 10/19/17 10/20/17 10/20/17 22:37 01:56 06:20 Breakfast Temperature 98.3 F 98.8 F 98.6 F 10/20/17 10/20/17 07:15 10:27 Breakfast NPO Temperature 98.0 F Laboratory Tests 10/17/17 10/18/17 10/19/17 13:25 06:10 08:44 WBC Cancelled 10.4 H 10.8 H 10/20/17 07:00 WBC 11.8 H At [facility] NPO/GT feedings. Orders at [facility] for NPO/GT feeding. 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 Cardiovascular: Yes: HTN Renal/: Yes: Hemodialysis Heme/Onc: Yes: Anemia Endocrine: Yes: Diabetes Mellitus - Past Surgical History Past Surgical History: Yes: AV Fistula/Graft - Smoking History Smoking history: Unknown if ever smoked History - Admission Reason For Visit: SEPSIS - Diagnostics CT Scan: Report Reviewed (Moderately severe, diffuse, cerebral atrophy and diffuse microvascular changes.) - General Mental Status: Awake and Alert, Able to Follow Commands, Forgetful, Vague Attention: Intact Ability to Follow Directions: Fair - Hearing Hearing: Normal Speech Evaluation - Communication Primary Language: CHILEAN Communication: Yes: Simple Responses - Speech Production Able to Make Needs Known: Yes: Mildly Impaired, Moderately Impaired Intelligibility: Yes: Mildly Impaired, Moderately Impaired - Speech Characteristics Voice Loudness: Moderately Soft/Quiet Voice Phonatory-based Quality: Yes: Dysphonia Speech Pattern: Impaired Speech Clarity: < 50% Nasal Resonance: Normal Articulation: Yes: Precise Voice, Other Observations: Yes: Progressively Weak Voice, Inadequate Breath Support - Language/Auditory Comprehension Follows: Yes: 1 Stage Simple Commands - Language/Verbal Expression Functional Communication Status: Yes: Mildly Impaired, Moderately Impaired - Swallow Evaluation/Bedside Assessment Current Nutritional Intake: NPO, G Tube Facial Symmetry at Rest: Symmetrical Pucker Lips: Normal Smile: Normal Lingual Movement: Symmetric Lingual Speed of Movement: Normal Lingual Movement Strgth Against Opposition: Reduced Lingual Movement Characteristics: Apraxic Laryngeal Movement: Able to Palpate Bolus Size: WFL Labial Seal: WFL Oral Prep Time: Increased A-P Transit: Impaired Timing of Swallow: Delayed Coughing/Throat Clear: No Change in Voice: No Recommendations - Speech Evaluation, Impression/Plan Impression: Oriented to hospital, age,lives in [place].Dysphonia r/o vocal cord dysfunction vs impaired respiratory capacity for speech purposes. Swallow seems brisk with fair tolerance of puree and water without overt signs of aspiration. Tardive dyskinesia? with labial pumping. suspect aerophagia. - Disposition Discharge to: Long-Term Facility - Dysphagia Impressions/Plan Dysphagia Impressions: Ongoing Evaluation *Silent aspiration: cannot be R/O at bedside Recommendations: MBS w Esophagus, Other (Continue NPO/GT until MBS performed.)
--- NOTE | 2017-10-20 16:38 | PN ---
Progress Note, Physician History of Present Illness: Pt seen and examined at bedside. She tolerated HD. She denies shortness of breath. - Current Medication List Current Medications: Active Medications Acetaminophen (Tylenol -) 650 mg PO Q4H PRN PRN Reason: FEVER Last Admin: 10/19/17 17:49 Dose: 650 mg Apixaban (Eliquis -) 5 mg PO BID [facility] Last Admin: 10/20/17 12:03 Dose: 5 mg Artificial Tears (Artificial Tears) 1 drop OD BID [facility] Last Admin: 10/20/17 12:05 Dose: Not Given Piperacillin/Tazobactam/Dextrose (Zosyn 2.25gm Ivpb (Premix)) 2.25 gm in 50 mls @ 100 mls/hr IVPB BID ROSELYN PRN Reason: Protocol Last Admin: 10/19/17 10:19 Dose: 100 mls/hr Insulin Aspart (Novolog Vial Sliding Scale -) 1 vial SQ TIDAC ROSELYN PRN Reason: Protocol Last Admin: 10/20/17 12:25 Dose: Not Given Ipratropium [place] (Atrovent 0.02% Nebulizer -) 1 amp NEB Q4H PRN PRN Reason: SHORTNESS OF BREATH Lactobacillus Acidophilus (Bacid -) 1 tab GT BID [facility] Last Admin: 10/20/17 12:03 Dose: 1 tab Levetiracetam (Keppra Oral Solution -) 500 mg GT BID [facility] Last Admin: 10/20/17 12:03 Dose: 500 mg Multivitamins (Total B With C -) 1 each PO DAILY [facility] Last Admin: 10/20/17 12:03 Dose: 1 each Nystatin (Nystop Powder -) 1 applic TP DAILY [facility] Last Admin: 10/20/17 12:08 Dose: 1 applic Paricalcitol (Zemplar -) 2 mcg IVPUSH [email or web address] [facility] Last Admin: 10/20/17 12:04 Dose: Not Given - Objective Vital Signs: Vital Signs Temperature 97 F L 10/20/17 14:17 Pulse Rate 78 10/20/17 14:17 Respiratory Rate 20 10/20/17 14:17 Blood Pressure 123/54 10/20/17 14:17 O2 Sat by Pulse Oximetry (%) 96 10/19/17 21:00 Constitutional: Yes: Calm Eyes: Yes: Conjunctiva Clear HENT: Yes: Atraumatic Cardiovascular: Yes: S1, S2 Respiratory: Yes: On Nasal O2 Gastrointestinal: Yes: Soft Genitourinary: Yes: Incontinence Musculoskeletal: Yes: Muscle Weakness Edema: Yes Edema: LLE: Trace, RLE: Trace Wound/Incision: Yes: Other (sacral ulcer) Labs: CBC, BMP 10/20/17 07:00 10/20/17 10:45 INR, PTT INR 1.42 (0.82-1.09) H 10/18/17 06:10 Problem List - Problems (1) Decubital ulcer Code(s): L89.90 - PRESSURE ULCER OF UNSPECIFIED SITE, UNSPECIFIED STAGE (2) ESRD (end stage renal disease) Code(s): N18.6 - END STAGE RENAL DISEASE (3) Sepsis Code(s): A41.9 - SEPSIS, UNSPECIFIED ORGANISM Assessment/Plan Current Medications Generic Name Dose Route Start Last Admin Trade Name Freq PRN Reason Stop Dose Admin Acetaminophen 650 mg 10/17/17 19:22 10/19/17 17:49 Tylenol - PO 650 mg Q4H PRN Administration FEVER Apixaban 5 mg 10/18/17 10:00 10/20/17 12:03 Eliquis - PO 5 mg BID ROSELYN Administration Artificial Tears 1 drop 10/18/17 10:00 10/20/17 12:05 Artificial Tears OD Not Given BID ROSELYN Piperacillin/Tazobactam/Dextrose 2.25 gm in 50 mls @ 100 mls/hr 10/18/17 10: 00 10/19/17 10:19 Zosyn 2.25gm Ivpb (Premix) IVPB 100 mls/hr BID ROSELYN Administration Protocol Insulin Aspart 1 vial 10/18/17 07:00 10/20/17 12:25 Novolog Vial Sliding Scale - SQ Not Given TIDAC [facility] Protocol Ipratropium [place] 1 amp 10/17/17 23:00 Atrovent 0.02% Nebulizer - NEB Q4H PRN SHORTNESS OF BREATH Lactobacillus Acidophilus 1 tab 10/18/17 10:00 10/20/17 12:03 Bacid - GT 1 tab BID ROSELYN Administration Levetiracetam 500 mg 10/17/17 23:00 10/20/17 12:03 Keppra Oral Solution - GT 500 mg BID ROSELYN Administration Multivitamins 1 each 10/18/17 10:00 10/20/17 12:03 Total B With C - PO 1 each DAILY ROSELYN Administration Nystatin 1 applic 10/18/17 10:00 10/20/17 12:08 Nystop Powder - TP 1 applic DAILY ROSELYN Administration Paricalcitol 2 mcg 10/20/17 10:00 10/20/17 12:04 Zemplar - IVPUSH Not Given [email or web address] RO[facility]N Impression 1. ESRD 2. anemia 3. change in mental status 4. epilepsy 5. htn 6. dm 7. gerd 8. obesity Plan - HD today - transfused PRBC - repeat labs in am - wound care - 3 k bath - can give prbc on HD - renal dose abx - will follow Dr Medellin
[2017-10-20] MEDS: PIPERACILLIN/TAZOB 2.25 GM 2.25 GM/50 ML BAG IVPB SCH ×2 (18:26→23:26)
[2017-10-20] MEDS: ACETAMINOPHEN 325 MG TABLET (FP) PO PRN (23:25)
[2017-10-21] MEDS: ARTIFICIAL TEARS (POLYVINYL ALCOHOL 1.4%) OPTH DROPS OD SCH ×3 (01:07→22:20)
[2017-10-21] MEDS: INSULIN SLIDING SCALE (NOVOLOG) 1 VIAL SQ SCH ×3 (06:07→16:33)
[2017-10-21 07:50] LABS: ANION GAP 11 (8-16); BLOOD UREA NITROGEN 29 mg/dL (7-18); CALCIUM 9.4 mg/dL (8.5-10.1); CHLORIDE 99 mmol/L (98-107); CO2 29 mmol/L (21-32); GLUCOSE,RANDOM 132 mg/dL (74-106); MAGNESIUM 2.4 mg/dL (1.8-2.4); POTASSIUM 3.5 mmol/L (3.5-5.1); SODIUM 139 mmol/L (136-145)
[2017-10-21 08:07] LABS: HEMATOCRIT 29.7 % (32.4-45.2); HEMOGLOBIN 9.4 GM/dL (10.7-15.3); MCHC 31.8 g/dl (32.0-36.0); MEAN CELL VOLUME 88.2 fl (80-96); MEAN PLT VOLUME 6.9 fl (7.5-11.1); PLATELET COUNT 567 K/MM3 (134-434); RBC 3.37 M/mm3 (3.60-5.2); RDW 17.9 % (11.6-15.6); WHITE BLOOD COUNT 11.2 K/mm3 (4.0-10.0)
--- NOTE | 2017-10-21 08:36 | PROC ---
Procedure Note Procedure: WOUND VAC PLACEMENT Sacral region cleansed. Wound measures 8cm x 8cm x 8cm. Some minor oozing on edges --> + hemostasis w/ silver sticks. White foam placed to base of wound covering exposed bone. Black foam placed just inside of wound borders to encourage contracture. Occlusive dressing applied along with bridge to right hip. VAC set 125mmHg. Foam collapsed as anticipated. Dressing change T-TH-Sat. No complications. Patient tolerated procedure well.
--- NOTE | 2017-10-21 08:50 | PN ---
Physical Exam: SUBJECTIVE: Patient seen and examined at bedside. Patient woke up but was not responding to my questions. Did not appear in any acute distress. OBJECTIVE: Vital Signs Period Temp Pulse Resp BP Sys/Crandall Pulse Ox Last 24 Hr 97 F-100.4 F 78-102 18-20 102-131/42-74 96-97 GENERAL: The patient is awake, alert, and fully oriented, in no acute distress. HEAD: Normal with no signs of trauma. LUNGS: Breath sounds equal, clear to auscultation bilaterally, no wheezes, no crackles, no accessory muscle use. HEART: 3/6 holosystolic murmur, S1, S2 without murmur, rub or gallop. ABDOMEN: Obese, Soft, nontender, nondistended, normoactive bowel sounds, no guarding, no rebound, no hepatosplenomegaly, no masses. EXTREMITIES: 2+ pulses, warm, well-perfused, no edema. 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 large stage 4 Sacral decubitus - wound vac in place draining serosanguinous fluid NEUROLOGICAL: Cranial nerves II through XII grossly intact. Lip smacking observed PSYCH: Normal mood, normal affect. SKIN: Warm, dry, normal turgor, no rashes or lesions noted Laboratory Results - last 24 hr 10/18/17 10/20/17 10/20/17 11:10 07:00 07:00 WBC RBC Hgb Hct MCV MCH MCHC RDW Plt Count MPV Sodium 136 Potassium 3.6 Chloride 96 L Carbon Dioxide 26 Anion Gap 14 BUN 51 H Creatinine 5.7 H Creat Clearance w eGFR 7.54 POC Glucometer Random Glucose 98 Calcium 9.2 Magnesium Total Bilirubin 0.5 AST 25 ALT 23 Alkaline Phosphatase 167 H Total Protein 6.9 Albumin 2.3 L Hepatitis C Antibody <0.1 Blood Type O POSITIVE Crossmatch See Detail 10/20/17 10/20/17 10/20/17 10:45 12:17 17:06 WBC RBC Hgb Hct MCV MCH MCHC RDW Plt Count MPV Sodium Potassium Chloride Carbon Dioxide Anion Gap BUN 16 D Creatinine 2.0 H Creat Clearance w eGFR POC Glucometer 106 102 Random Glucose Calcium Magnesium Total Bilirubin AST ALT Alkaline Phosphatase Total Protein Albumin Hepatitis C Antibody Blood Type Crossmatch 10/21/17 10/21/17 10/21/17 00:48 01:48 05:56 WBC RBC Hgb Hct MCV MCH MCHC RDW Plt Count MPV Sodium Potassium Chloride Carbon Dioxide Anion Gap BUN Creatinine Creat Clearance w eGFR POC Glucometer 160 132 146 Random Glucose Calcium Magnesium Total Bilirubin AST ALT Alkaline Phosphatase Total Protein Albumin Hepatitis C Antibody Blood Type Crossmatch 10/21/17 10/21/17 06:45 06:45 WBC 11.2 H RBC 3.37 L D Hgb 9.4 L D Hct 29.7 L D MCV 88.2 MCH 28.0 MCHC 31.8 L RDW 17.9 H Plt Count 567 H MPV 6.9 L Sodium 139 Potassium 3.5 Chloride 99 Carbon Dioxide 29 Anion Gap 11 BUN 29 H Creatinine 4.0 H Creat Clearance w eGFR POC Glucometer Random Glucose 132 H Calcium 9.4 Magnesium 2.4 Total Bilirubin AST ALT Alkaline Phosphatase Total Protein Albumin Hepatitis C Antibody Blood Type Crossmatch Active Medications Generic Name Dose Route Start Last Admin Trade Name Freq PRN Reason Stop Dose Admin Acetaminophen 650 mg 10/17/17 19:22 10/20/17 23:25 Tylenol - PO 650 mg Q4H PRN Administration FEVER Apixaban 5 mg 10/18/17 10:00 10/20/17 23:24 Eliquis - PO 5 mg BID ROSE[facility]N Administration Artificial Tears 1 drop 10/18/17 10:00 10/21/17 01:07 Artificial Tears OD Not Given BID [facility] Piperacillin/Tazobactam/Dextrose 2.25 gm in 50 mls @ 100 mls/hr 10/18/17 10: 00 10/20/17 23:26 Zosyn 2.25gm Ivpb (Premix) IVPB 100 mls/hr BID [facility] Administration Protocol Insulin Aspart 1 vial 10/18/17 07:00 10/21/17 06:07 Novolog Vial Sliding Scale - SQ Not Given TIDAC [facility] Protocol Ipratropium [place] 1 amp 10/17/17 23:00 Atrovent 0.02% Nebulizer - NEB Q4H PRN SHORTNESS OF BREATH Lactobacillus Acidophilus 1 tab 10/18/17 10:00 10/20/17 23:25 Bacid - GT 1 tab BID [facility] Administration Levetiracetam 500 mg 10/17/17 23:00 10/20/17 23:24 Keppra Oral Solution - GT 500 mg BID [facility] Administration Multivitamins 1 each 10/18/17 10:00 10/20/17 12:03 Total B With C - PO 1 each DAILY [facility] Administration Nystatin 1 applic 10/18/17 10:00 10/20/17 12:08 Nystop Powder - TP 1 applic DAILY [facility] Administration Paricalcitol 2 mcg 10/20/17 10:00 10/20/17 12:04 Zemplar - IVPUSH Not Given [id number] [facility] ASSESSMENT/PLAN: 62 year old female with a hx of sacral decubitus, tardive diskinesia, ESRD on HD , HTN, SVC syndrome/clot, iron-deficiency anemia, Type 2 diabetes, GERD, and epilepsy is admitted to the hospital for sepsis 2/2 sacral decubitus #Sepsis 2/2 sacral ulcer: -start ceftriaxone/flagyl per ID -D/C zosyn -appreciate ID consultation -blood cultures negative -wound cultures grew multiple organisms, await sensitivities -lactic acid normalized -wound vac in place - Yajaira sent out for SNF to take care of wound vac T/Dari/Sat -tylenol 650 PRN pain -likely need MRI to rule out osteomyelitis #Tardive Dyskinesia: stable, was due to antipsychotic use - stopped 6 months ago -appreciate neuro consultation #ESRD: stable, on HD -HD planned for AM -appreciate nephrology recommendations #Anemia: stable -transfuse as necessary if hgb < 7 #Seizure Disorder: stable -continue keppra 500 BID #SVC syndrome/clot: stable -continue eliquis 5mg BID #FEN -tube feed nepro -careful with repletion -no standing fluids #Prophylaxis -On eliquis #Disposition: -possible DC to SNF Visit type - Emergency Visit Emergency Visit: No - New Patient This patient is new to me today: No - Critical Care Critical Care patient: No
[2017-10-21] MEDS ORDERED: PT OWN MED DRAWER 7, Y5N ONE (09:50)
[2017-10-21] MEDS: APIXABAN 5 MG TABLET PO SCH ×2 (09:53→22:19)
[2017-10-21] MEDS: LACTOBACILLUS ACIDOPHILUS 1 EACH TAB (FP) GT SCH ×2 (09:53→22:27)
[2017-10-21] MEDS: PIPERACILLIN/TAZOB 2.25 GM 2.25 GM/50 ML BAG IVPB SCH (09:53)
[2017-10-21] MEDS: levETIRAcetam 500 MG/5 ML ORAL SOLUTION (UNIT-DOSE CUPS) GT SCH ×2 (09:53→22:19)
[2017-10-21] MEDS: VITAMIN B COMPLEX W/C COMBO TABLET (FP) PO SCH (09:53)
[2017-10-21] MEDS: NYSTATIN POWDER 100,000 UNITS/GM - 15 GM TOPICAL POWDER TP SCH (12:02)
--- NOTE | 2017-10-21 14:48 | PN ---
Progress Note, Physician History of Present Illness: Awake, responsive Offers no complaints Low grade temp Wound c/s mixed organisms BC no growth - Current Medication List Current Medications: Active Medications Acetaminophen (Tylenol -) 650 mg PO Q4H PRN PRN Reason: FEVER Last Admin: 10/20/17 23:25 Dose: 650 mg Apixaban (Eliquis -) 5 mg PO BID [facility] Last Admin: 10/21/17 09:53 Dose: 5 mg Artificial Tears (Artificial Tears) 1 drop OD BID [facility] Last Admin: 10/21/17 09:54 Dose: Not Given Insulin Aspart (Novolog Vial Sliding Scale -) 1 vial SQ TIDAC [facility] PRN Reason: Protocol Last Admin: 10/21/17 12:08 Dose: 2 units Ipratropium [place] (Atrovent 0.02% Nebulizer -) 1 amp NEB Q4H PRN PRN Reason: SHORTNESS OF BREATH Lactobacillus Acidophilus (Bacid -) 1 tab GT BID [facility] Last Admin: 10/21/17 09:53 Dose: 1 tab Levetiracetam (Keppra Oral Solution -) 500 mg GT BID [facility] Last Admin: 10/21/17 09:53 Dose: 500 mg Multivitamins (Total B With C -) 1 each PO DAILY [facility] Last Admin: 10/21/17 09:53 Dose: 1 each Nystatin (Nystop Powder -) 1 applic TP DAILY [facility] Last Admin: 10/21/17 12:02 Dose: 1 applic Paricalcitol (Zemplar -) 2 mcg IVPUSH MoWeFr@1000 [facility] Last Admin: 10/20/17 12:04 Dose: Not Given - Objective Vital Signs: Vital Signs Temperature 99.9 F H 10/21/17 14:10 Pulse Rate 91 H 10/21/17 14:10 Respiratory Rate 20 10/21/17 14:10 Blood Pressure 121/80 10/21/17 14:10 O2 Sat by Pulse Oximetry (%) 99 10/21/17 09:00 Constitutional: Yes: Obese Cardiovascular: Yes: Regular Rate and Rhythm, S1, S2 Respiratory: Yes: CTA Bilaterally Gastrointestinal: Yes: Normal Bowel Sounds, Soft, Abdomen, Obese. No: Tenderness Edema: Yes Integumentary: Yes: Other (+ sacral decubitus ulcer) Labs: CBC, BMP 10/21/17 06:45 10/21/17 06:45 INR, PTT INR 1.42 (0.82-1.09) H 10/18/17 06:10 Assessment/Plan S/P rapid response ? seizure Sacral decubitus ulcer ESRD Substitute ceftriaxone/ flagyl Local wound care
[2017-10-21] MEDS ORDERED: CEFTRIAXONE 1 G/50 ML PREMIX 50 ML IVPB SCH (15:30)
--- NOTE | 2017-10-21 15:43 | PN ---
Progress Note, Physician History of Present Illness: Pt seen and examined at bedside. She appears comfortable. - Current Medication List Current Medications: Active Medications Acetaminophen (Tylenol -) 650 mg PO Q4H PRN PRN Reason: FEVER Last Admin: 10/20/17 23:25 Dose: 650 mg Apixaban (Eliquis -) 5 mg PO BID [facility] Last Admin: 10/21/17 09:53 Dose: 5 mg Artificial Tears (Artificial Tears) 1 drop OD BID [facility] Last Admin: 10/21/17 09:54 Dose: Not Given CEFTRIAXONE 1 G/50 ML PREMIX (Ceftriaxone 1 Gm-D5w Bag) 50 mls @ 100 mls/hr IVPB DAILY [facility] Metronidazole (Flagyl 500mg Premixed Ivpb -) 500 mg in 100 mls @ 100 mls/hr IVPB Q8H-IV [facility] Insulin Aspart (Novolog Vial Sliding Scale -) 1 vial SQ TIDAC [facility] PRN Reason: Protocol Last Admin: 10/21/17 12:08 Dose: 2 units Ipratropium [place] (Atrovent 0.02% Nebulizer -) 1 amp NEB Q4H PRN PRN Reason: SHORTNESS OF BREATH Lactobacillus Acidophilus (Bacid -) 1 tab GT BID [facility] Last Admin: 10/21/17 09:53 Dose: 1 tab Levetiracetam (Keppra Oral Solution -) 500 mg GT BID [facility] Last Admin: 10/21/17 09:53 Dose: 500 mg Multivitamins (Total B With C -) 1 each PO DAILY [facility] Last Admin: 10/21/17 09:53 Dose: 1 each Nystatin (Nystop Powder -) 1 applic TP DAILY [facility] Last Admin: 10/21/17 12:02 Dose: 1 applic Paricalcitol (Zemplar -) 2 mcg IVPUSH MoWeFr@1000 [facility] Last Admin: 10/20/17 12:04 Dose: Not Given - Objective Vital Signs: Vital Signs Temperature 99.9 F H 10/21/17 14:10 Pulse Rate 91 H 10/21/17 14:10 Respiratory Rate 20 10/21/17 14:10 Blood Pressure 121/80 10/21/17 14:10 O2 Sat by Pulse Oximetry (%) 99 10/21/17 09:00 Constitutional: Yes: Calm Eyes: Yes: Conjunctiva Clear Cardiovascular: Yes: S1, S2 Respiratory: Yes: CTA Bilaterally Gastrointestinal: Yes: Soft, Other (peg) Genitourinary: Yes: Incontinence Musculoskeletal: Yes: Muscle Weakness Edema: Yes Edema: LLE: Trace, RLE: Trace Neurological: Yes: Pre-Existing Deficit Labs: CBC, BMP 10/21/17 06:45 10/21/17 06:45 INR, PTT INR 1.42 (0.82-1.09) H 10/18/17 06:10 Problem List - Problems (1) Decubital ulcer Code(s): L89.90 - PRESSURE ULCER OF UNSPECIFIED SITE, UNSPECIFIED STAGE (2) ESRD (end stage renal disease) Code(s): N18.6 - END STAGE RENAL DISEASE (3) Sepsis Code(s): A41.9 - SEPSIS, UNSPECIFIED ORGANISM Assessment/Plan Current Medications Generic Name Dose Route Start Last Admin Trade Name Freq PRN Reason Stop Dose Admin Acetaminophen 650 mg 10/17/17 19:22 10/20/17 23:25 Tylenol - PO 650 mg Q4H PRN Administration FEVER Apixaban 5 mg 10/18/17 10:00 10/21/17 09:53 Eliquis - PO 5 mg BID [facility] Administration Artificial Tears 1 drop 10/18/17 10:00 10/21/17 09:54 Artificial Tears OD Not Given BID [facility] CEFTRIAXONE 1 G/50 ML PREMIX 50 mls @ 100 mls/hr 10/21/17 15:30 Ceftriaxone 1 Gm-D5w Bag IVPB DAILY [facility] Metronidazole 500 mg in 100 mls @ 100 mls/hr 10/21/17 15:30 Flagyl 500mg Premixed Ivpb - IVPB Q8H-IV [facility] Insulin Aspart 1 vial 10/18/17 07:00 10/21/17 12:08 Novolog Vial Sliding Scale - SQ 2 units TIDAC [facility] Administration Protocol Ipratropium [place] 1 amp 10/17/17 23:00 Atrovent 0.02% Nebulizer - NEB Q4H PRN SHORTNESS OF BREATH Lactobacillus Acidophilus 1 tab 10/18/17 10:00 10/21/17 09:53 Bacid - GT 1 tab BID [facility] Administration Levetiracetam 500 mg 10/17/17 23:00 10/21/17 09:53 Keppra Oral Solution - GT 500 mg BID [facility] Administration Multivitamins 1 each 10/18/17 10:00 10/21/17 09:53 Total B With C - PO 1 each DAILY [facility] Administration Nystatin 1 applic 10/18/17 10:00 10/21/17 12:02 Nystop Powder - TP 1 applic DAILY [facility] Administration Paricalcitol 2 mcg 10/20/17 10:00 10/20/17 12:04 Zemplar - IVPUSH Not Given MoWeFr@1000 [facility] Impression 1. ESRD 2. anemia 3. change in mental status 4. epilepsy 5. htn 6. dm 7. gerd 8. obesity Plan - HD in am - cont current meds - monitor BP - hg is stable - renal dose abx - will follow Dr Medellin
[2017-10-21] MEDS ORDERED: INSULIN (NOVOLOG) ASPART 100 UNITS/ML 10ML VIAL ONE (17:33)
--- NOTE | 2017-10-21 18:55 | PN ---
Teaching Attending Note Name of Resident: Claudy Garcia ATTENDING PHYSICIAN STATEMENT I saw and evaluated the patient. I reviewed the resident's note and discussed the case with the resident. I agree with the resident's findings and plan as documented. SUBJECTIVE: Patient is comfortable with no acute distress, no shortness of breath. OBJECTIVE: Vital Signs Temperature 98.8 F 10/21/17 17:39 Pulse Rate 104 H 10/21/17 17:39 Respiratory Rate 20 10/21/17 17:39 Blood Pressure 139/82 10/21/17 17:39 O2 Sat by Pulse Oximetry (%) 99 10/21/17 09:00 CBCD WBC 11.2 K/mm3 (4.0-10.0) H 10/21/17 06:45 RBC 3.37 M/mm3 (3.60-5.2) L D 10/21/17 06:45 Hgb 9.4 GM/dL (10.7-15.3) L D 10/21/17 06:45 Hct 29.7 % (32.4-45.2) L D 10/21/17 06:45 MCV 88.2 fl (80-96) 10/21/17 06:45 MCHC 31.8 g/dl (32.0-36.0) L 10/21/17 06:45 RDW 17.9 % (11.6-15.6) H 10/21/17 06:45 Plt Count 567 K/MM3 (134-434) H 10/21/17 06:45 MPV 6.9 fl (7.5-11.1) L 10/21/17 06:45 CMP Sodium 139 mmol/L (136-145) 10/21/17 06:45 Potassium 3.5 mmol/L (3.5-5.1) 10/21/17 06:45 Chloride 99 mmol/L (98-107) 10/21/17 06:45 Carbon Dioxide 29 mmol/L (21-32) 10/21/17 06:45 Anion Gap 11 (8-16) 10/21/17 06:45 BUN 29 mg/dL (7-18) H 10/21/17 06:45 Creatinine 4.0 mg/dL (0.55-1.02) H 10/21/17 06:45 Creat Clearance w eGFR 7.54 (>60) 10/20/17 07:00 Random Glucose 132 mg/dL (74-106) H 10/21/17 06:45 Calcium 9.4 mg/dL (8.5-10.1) 10/21/17 06:45 Total Bilirubin 0.5 mg/dL (0.2-1.0) 10/20/17 07:00 AST 25 U/L (15-37) 10/20/17 07:00 ALT 23 U/L (12-78) 10/20/17 07:00 Alkaline Phosphatase 167 U/L (45-117) H 10/20/17 07:00 Total Protein 6.9 g/dl (6.4-8.2) 10/20/17 07:00 Albumin 2.3 g/dl (3.4-5.0) L 10/20/17 07:00 CARDIAC ENZYMES Creatine Kinase 448 IU/L (26-192) H 10/17/17 14:39 Troponin I < 0.02 ng/ml (0.00-0.05) 10/17/17 14:39 Current Medications Generic Name Dose Route Start Last Admin Trade Name Freq PRN Reason Stop Dose Admin Acetaminophen 650 mg 10/17/17 19:22 10/20/17 23:25 Tylenol - PO 650 mg Q4H PRN Administration FEVER Apixaban 5 mg 10/18/17 10:00 10/21/17 09:53 Eliquis - PO 5 mg BID [facility] Administration Artificial Tears 1 drop 10/18/17 10:00 10/21/17 09:54 Artificial Tears OD Not Given BID [facility] CEFTRIAXONE 1 G/50 ML PREMIX 50 mls @ 100 mls/hr 10/21/17 15:30 10/21/17 16: 23 Ceftriaxone 1 Gm-D5w Bag IVPB 100 mls/hr DAILY [facility] Administration Metronidazole 500 mg in 100 mls @ 100 mls/hr 10/21/17 15:30 10/21/17 17:05 Flagyl 500mg Premixed Ivpb - IVPB 100 mls/hr Q8H-IV [facility] Administration Insulin Aspart 1 vial 10/18/17 07:00 10/21/17 16:33 Novolog Vial Sliding Scale - SQ Not Given TIDAC [facility] Protocol Ipratropium [place] 1 amp 10/17/17 23:00 Atrovent 0.02% Nebulizer - NEB Q4H PRN SHORTNESS OF BREATH Lactobacillus Acidophilus 1 tab 10/18/17 10:00 10/21/17 09:53 Bacid - GT 1 tab BID [facility] Administration Levetiracetam 500 mg 10/17/17 23:00 10/21/17 09:53 Keppra Oral Solution - GT 500 mg BID [facility] Administration Multivitamins 1 each 10/18/17 10:00 10/21/17 09:53 Total B With C - PO 1 each DAILY [facility] Administration Nystatin 1 applic 10/18/17 10:00 10/21/17 12:02 Nystop Powder - TP 1 applic DAILY [facility] Administration Paricalcitol 2 mcg 10/20/17 10:00 10/20/17 12:04 Zemplar - IVPUSH Not Given MoWeFr@1000 [facility] Home Medications Medication Instructions Recorded Acetaminophen 650 mg GT Q6H PRN 10/17/17 Amlodipine Besylate [Norvasc -] 2.5 mg GT DAILY 10/17/17 Apixaban [Eliquis] 5 mg GT BID 10/17/17 Collagenase Clostridium Hist. 1 applic TP DAILY 10/17/17 [Santyl] Insulin (LOG) Aspart [NovoLOG -] 0 units SQ BID 10/17/17 Insulin NPH Hum/Reg Insulin Hm 8 unit SQ DAILY 10/17/17 [Novolin 70-30 100 Unit/ml Vial] Ipratropium 0.02% Nebulizer 1 neb NEB Q4H 10/17/17 [Atrovent] Lactobacillus Acidophilus 1 each GT BID 10/17/17 [Acidophilus] Levetiracetam [Keppra Oral 500 mg GT Q12H 10/17/17 Solution -] Nystatin Powder [Nystop Topical 60 gm TP DAILY 10/17/17 Powder -] Paricalcitol 2 mcg IV DAILY 10/17/17 Polyvinyl Alcohol [Artificial 15 ml OP BID 10/17/17 Tears] Sevelamer Carbonate 800 mg GT Q8H 10/17/17 Vitamin B Complex/Folic Acid 2,000 mcg GT DAILY 10/17/17 [B-Stress Capsules] PE: per resident's note Sacral decubitus: stage IV very deep, wound is clean. ASSESSMENT AND PLAN: 62 year old female with a hx of sacral decubitus, tardive diskinesia, ESRD on HD , HTN, SVC syndrome/clot, iron-deficiency anemia, Type 2 diabetes, GERD, and epilepsy is admitted to the hospital for sepsis 2/2 sacral decubitus #Acute sepsis due to sacral ulcer stage IV IV antibiotic changes to Rocephin and Flagyl , patient went for Xray of sacrum to r/o Osteo which might be possibility s/p zosyn, vancomycin. #ARF over chronic appreciate nephro consult #Electrolyte imbalance replete as needed. #Tardive Dyskinesia: stable now due to antipsychotic use - stopped 6 months ago , neuro on the case #Anemia: stable transfuse below 7 s/p one unit. #Seizure Disorder: continue keppra 500 BID #Hx of SVC syndrome/clot: on eliquis 5mg BID continue Dvt Px: Eliquis
[2017-10-21] MEDS: ACETAMINOPHEN 325 MG TABLET (FP) PO PRN (22:31)
[2017-10-22] MEDS: INSULIN SLIDING SCALE (NOVOLOG) 1 VIAL SQ SCH ×3 (06:47→16:40)
[2017-10-22 08:08] LABS: HEMOGLOBIN 8.4 GM/dL (10.7-15.3); MCH 27.6 pg (25.7-33.7); MCHC 31.1 g/dl (32.0-36.0); MEAN CELL VOLUME 88.5 fl (80-96); MEAN PLT VOLUME 6.9 fl (7.5-11.1); PLATELET COUNT 514 K/MM3 (134-434); RBC 3.05 M/mm3 (3.60-5.2); RDW 17.6 % (11.6-15.6); WHITE BLOOD COUNT 11.2 K/mm3 (4.0-10.0)
[2017-10-22] MEDS: PARICALCITOL 5 MCG/ML VIAL IVPUSH SCH ×2 (08:54→12:04)
[2017-10-22 08:57] LABS: CHLORIDE 98 mmol/L (98-107); POTASSIUM 3.3 mmol/L (3.5-5.1); SODIUM 139 mmol/L (136-145)
[2017-10-22 09:03] LABS: ANION GAP 12 (8-16); BLOOD UREA NITROGEN 42 mg/dL (7-18); CALCIUM 9.5 mg/dL (8.5-10.1); CO2 29 mmol/L (21-32); CREATININE 5.1 mg/dL (0.55-1.02); GLUCOSE,RANDOM 158 mg/dL (74-106); MAGNESIUM 2.5 mg/dL (1.8-2.4); PHOSPHOROUS 3.4 mg/dL (2.5-4.9)
[2017-10-22] MEDS ORDERED: PT OWN MED DRAWER 7, Y5N ONE ×2 (11:27→21:00)
[2017-10-22] MEDS: ARTIFICIAL TEARS (POLYVINYL ALCOHOL 1.4%) OPTH DROPS OD SCH ×2 (12:02→22:37)
[2017-10-22] MEDS: VITAMIN B COMPLEX W/C COMBO TABLET (FP) PO SCH (12:03)
[2017-10-22] MEDS: LACTOBACILLUS ACIDOPHILUS 1 EACH TAB (FP) GT SCH ×2 (12:03→22:37)
[2017-10-22] MEDS: levETIRAcetam 500 MG/5 ML ORAL SOLUTION (UNIT-DOSE CUPS) GT SCH ×2 (12:03→22:38)
[2017-10-22] MEDS: APIXABAN 5 MG TABLET PO SCH ×2 (12:03→22:37)
[2017-10-22] MEDS: ACETAMINOPHEN 325 MG TABLET (FP) PO PRN ×2 (12:11→22:38)
--- NOTE | 2017-10-22 12:20 | PN ---
Progress Note, VICE PROVOST - Note Progress Note: Selected Entries 10/21/17 10/21/17 10/21/17 02:00 06:13 09:18 Breakfast Temperature 100 F H 98.9 F 98.9 F 10/21/17 10/21/17 10/21/17 14:10 17:39 22:00 Breakfast Temperature 99.9 F H 98.8 F 100.5 F H 10/22/17 10/22/17 10/22/17 01:58 04:57 06:45 Breakfast Temperature 98.7 F 99.6 F 98.1 F 10/22/17 09:53 Breakfast NPO Temperature Laboratory Tests 10/20/17 10/21/17 10/22/17 07:00 06:45 06:50 WBC 11.8 H 11.2 H 11.2 H MBS reviewed with staff. Suggest continue TF nocturnally to facilitate wound healing and initiate PO diet during the day. RD consult. Monitor PO tolerance.
--- NOTE | 2017-10-22 13:15 | PN ---
Progress Note, Physician History of Present Illness: Pt seen and examined at bedside. She tolerated HD today. - Current Medication List Current Medications: Active Medications Acetaminophen (Tylenol -) 650 mg PO Q4H PRN PRN Reason: FEVER Last Admin: 10/22/17 12:11 Dose: 650 mg Apixaban (Eliquis -) 5 mg PO BID [facility] Last Admin: 10/22/17 12:03 Dose: 5 mg Artificial Tears (Artificial Tears) 1 drop OD BID [facility] Last Admin: 10/22/17 12:02 Dose: 1 drop Ceftriaxone Sodium 1 gm/ (Dextrose) 50 mls @ 100 mls/hr IVPB Q24H [facility] Metronidazole (Flagyl 250mg Premixed Ivpb -) 250 mg in 50 mls @ 50 mls/hr IVPB Q8H-IV [facility] Insulin Aspart (Novolog Vial Sliding Scale -) 1 vial SQ TIDAC [facility] PRN Reason: Protocol Last Admin: 10/22/17 06:47 Dose: Not Given Ipratropium [place] (Atrovent 0.02% Nebulizer -) 1 amp NEB Q4H PRN PRN Reason: SHORTNESS OF BREATH Lactobacillus Acidophilus (Bacid -) 1 tab GT BID [facility] Last Admin: 10/22/17 12:03 Dose: 1 tab Levetiracetam (Keppra Oral Solution -) 500 mg GT BID [facility] Last Admin: 10/22/17 12:03 Dose: 500 mg Multivitamins (Total B With C -) 1 each PO DAILY [facility] Last Admin: 10/22/17 12:03 Dose: 1 each Nystatin (Nystop Powder -) 1 applic TP DAILY [facility] Last Admin: 10/21/17 12:02 Dose: 1 applic Paricalcitol (Zemplar -) 2 mcg IVPUSH MoWeFr@1000 [facility] Last Admin: 10/22/17 12:04 Dose: Not Given - Objective Vital Signs: Vital Signs Temperature 98.1 F 10/22/17 06:45 Pulse Rate 69 10/22/17 10:25 Respiratory Rate 18 10/22/17 10:25 Blood Pressure 126/59 10/22/17 10:25 O2 Sat by Pulse Oximetry (%) 98 10/21/17 21:00 Constitutional: Yes: Calm Eyes: Yes: Conjunctiva Clear HENT: Yes: Atraumatic Cardiovascular: Yes: S1, S2 Respiratory: Yes: CTA Bilaterally Gastrointestinal: Yes: Other (peg) Genitourinary: Yes: Incontinence Musculoskeletal: Yes: Muscle Weakness Edema: Yes Edema: LLE: Trace, RLE: Trace Neurological: Yes: Pre-Existing Deficit Labs: CBC, BMP 10/22/17 06:50 10/22/17 06:50 INR, PTT INR 1.42 (0.82-1.09) H 10/18/17 06:10 Problem List - Problems (1) Decubital ulcer Code(s): L89.90 - PRESSURE ULCER OF UNSPECIFIED SITE, UNSPECIFIED STAGE (2) ESRD (end stage renal disease) Code(s): N18.6 - END STAGE RENAL DISEASE (3) Sepsis Code(s): A41.9 - SEPSIS, UNSPECIFIED ORGANISM Assessment/Plan Current Medications Generic Name Dose Route Start Last Admin Trade Name Freq PRN Reason Stop Dose Admin Acetaminophen 650 mg 10/17/17 19:22 10/22/17 12:11 Tylenol - PO 650 mg Q4H PRN Administration FEVER Apixaban 5 mg 10/18/17 10:00 10/22/17 12:03 Eliquis - PO 5 mg BID [facility] Administration Artificial Tears 1 drop 10/18/17 10:00 10/22/17 12:02 Artificial Tears OD 1 drop BID [facility] Administration Ceftriaxone Sodium 1 gm/ 50 mls @ 100 mls/hr 10/22/17 12:30 Dextrose IVPB Q24H [facility] Metronidazole 250 mg in 50 mls @ 50 mls/hr 10/22/17 12:30 Flagyl 250mg Premixed Ivpb - IVPB Q8H-IV [facility] Insulin Aspart 1 vial 10/18/17 07:00 10/22/17 06:47 Novolog Vial Sliding Scale - SQ Not Given TIDAC [facility] Protocol Ipratropium [place] 1 amp 10/17/17 23:00 Atrovent 0.02% Nebulizer - NEB Q4H PRN SHORTNESS OF BREATH Lactobacillus Acidophilus 1 tab 10/18/17 10:00 10/22/17 12:03 Bacid - GT 1 tab BID [facility] Administration Levetiracetam 500 mg 10/17/17 23:00 10/22/17 12:03 Keppra Oral Solution - GT 500 mg BID [facility] Administration Multivitamins 1 each 10/18/17 10:00 10/22/17 12:03 Total B With C - PO 1 each DAILY [facility] Administration Nystatin 1 applic 10/18/17 10:00 10/21/17 12:02 Nystop Powder - TP 1 applic DAILY [facility] Administration Paricalcitol 2 mcg 10/20/17 10:00 10/22/17 12:04 Zemplar - IVPUSH Not Given MoWeFr@1000 [facility] Impression 1. ESRD 2. anemia 3. change in mental status 4. epilepsy 5. htn 6. dm 7. gerd 8. obesity Plan - pt tolerated HD today - monitor hg - cont current management - renal dose abx - will follow Dr Medellin
[2017-10-22 14:13] LABS: HBSAG SCREEN Negative (Negative); HEP A AB, IGM Negative (Negative); HEP B CORE AB, TOT Positive (Negative)
--- NOTE | 2017-10-22 15:24 | PN ---
Physical Exam: SUBJECTIVE: Patient seen and examined in hemodialysis center. No acute overnight events. Patient is not too arousable and wasnt answering questions while on dialysis OBJECTIVE: Vital Signs Period Temp Pulse Resp BP Sys/Crandall Pulse Ox Last 24 Hr 98.1 F-100.5 F 60-104 18-20 88-139/43-82 98-98 GENERAL: The patient is awake, alert, and fully oriented, in no acute distress. HEAD: Normal with no signs of trauma. LUNGS: Breath sounds equal, clear to auscultation bilaterally, no wheezes, no crackles, no accessory muscle use. HEART: 3/6 holosystolic murmur, S1, S2 without murmur, rub or gallop. ABDOMEN: Obese, Soft, nontender, nondistended, normoactive bowel sounds, no guarding, no rebound, no hepatosplenomegaly, no masses. EXTREMITIES: 2+ pulses, warm, well-perfused, no edema. Surgical scars noted on R arm inside sales representative of previous graft/fistula. large stage 4 Sacral decubitus - wound vac in place draining serosanguinous fluid NEUROLOGICAL: Cranial nerves II through XII grossly intact. Lip smacking observed PSYCH: Normal mood, normal affect. SKIN: Warm, dry, normal turgor, no rashes or lesions noted Laboratory Results - last 24 hr 10/18/17 10/19/17 10/20/17 08:54 14:50 07:00 WBC RBC Hgb Hct MCV MCH MCHC RDW Plt Count MPV Sodium Potassium Chloride Carbon Dioxide Anion Gap BUN Creatinine POC Glucometer Random Glucose Calcium Phosphorus Magnesium Levetiracetam 30.5 Hep A IgM Ab Confirm Negative Hepatitis A Ab Total Positive H Hep Bs Antigen Negative Hep Bs Antibody Reactive Hep B Core Total Ab Positive H Blood Type O POSITIVE Antibody Screen Negative Crossmatch See Detail 10/21/17 10/21/17 10/22/17 16:31 22:18 05:24 WBC RBC Hgb Hct MCV MCH MCHC RDW Plt Count MPV Sodium Potassium Chloride Carbon Dioxide Anion Gap BUN Creatinine POC Glucometer 123 170 148 Random Glucose Calcium Phosphorus Magnesium Levetiracetam Hep A IgM Ab Confirm Hepatitis A Ab Total Hep Bs Antigen Hep Bs Antibody Hep B Core Total Ab Blood Type Antibody Screen Crossmatch 10/22/17 10/22/17 10/22/17 06:50 06:50 06:50 WBC 11.2 H RBC 3.05 L Hgb 8.4 L D Hct 27.0 L MCV 88.5 MCH 27.6 MCHC 31.1 L RDW 17.6 H Plt Count 514 H MPV 6.9 L Sodium 139 Potassium 3.3 L Chloride 98 Carbon Dioxide 29 Anion Gap 12 BUN 42 H Creatinine 5.1 H POC Glucometer Random Glucose 158 H Calcium 9.5 Phosphorus Cancelled 3.4 Magnesium Cancelled 2.5 H Levetiracetam Hep A IgM Ab Confirm Hepatitis A Ab Total Hep Bs Antigen Hep Bs Antibody Hep B Core Total Ab Blood Type Antibody Screen Crossmatch 10/22/17 12:33 WBC RBC Hgb Hct MCV MCH MCHC RDW Plt Count MPV Sodium Potassium Chloride Carbon Dioxide Anion Gap BUN Creatinine POC Glucometer 136 Random Glucose Calcium Phosphorus Magnesium Levetiracetam Hep A IgM Ab Confirm Hepatitis A Ab Total Hep Bs Antigen Hep Bs Antibody Hep B Core Total Ab Blood Type Antibody Screen Crossmatch Active Medications Generic Name Dose Route Start Last Admin Trade Name Freq PRN Reason Stop Dose Admin Acetaminophen 650 mg 10/17/17 19:22 10/22/17 12:11 Tylenol - PO 650 mg Q4H PRN Administration FEVER Apixaban 5 mg 10/18/17 10:00 10/22/17 12:03 Eliquis - PO 5 mg BID [facility] Administration Artificial Tears 1 drop 10/18/17 10:00 10/22/17 12:02 Artificial Tears OD 1 drop BID [facility] Administration Ceftriaxone Sodium 1 gm/ 50 mls @ 100 mls/hr 10/22/17 12:30 Dextrose IVPB Q24H [facility] Metronidazole 250 mg in 50 mls @ 50 mls/hr 10/22/17 12:30 Flagyl 250mg Premixed Ivpb - IVPB Q8H-IV [facility] Insulin Aspart 1 vial 10/18/17 07:00 10/22/17 13:58 Novolog Vial Sliding Scale - SQ Not Given TIDAC [facility] Protocol Ipratropium [place] 1 amp 10/17/17 23:00 Atrovent 0.02% Nebulizer - NEB Q4H PRN SHORTNESS OF BREATH Lactobacillus Acidophilus 1 tab 10/18/17 10:00 10/22/17 12:03 Bacid - GT 1 tab BID [facility] Administration Levetiracetam 500 mg 10/17/17 23:00 10/22/17 12:03 Keppra Oral Solution - GT 500 mg BID [facility] Administration Multivitamins 1 each 10/18/17 10:00 10/22/17 12:03 Total B With C - PO 1 each DAILY [facility] Administration Nystatin 1 applic 10/18/17 10:00 10/21/17 12:02 Nystop Powder - TP 1 applic DAILY [facility] Administration Paricalcitol 2 mcg 10/20/17 10:00 10/22/17 12:04 Zemplar - IVPUSH Not Given MoWeFr@1000 [facility] ASSESSMENT/PLAN: 62 year old female with a hx of sacral decubitus, tardive diskinesia, ESRD on HD , HTN, SVC syndrome/clot, iron-deficiency anemia, Type 2 diabetes, GERD, and epilepsy is admitted to the hospital for sepsis 2/2 sacral decubitus #Sepsis 2/2 sacral ulcer: improving -discuss with ID about needing ceftriaxone/metronidazole - likely not need - also discuss need for MRI -appreciate ID consultation -blood cultures negative -wound cultures grew multiple organisms, await sensitivities -lactic acid normalized -wound vac in place - Yajaira sent out for SNF to take care of wound vac T/Dari/Sat -tylenol 650 PRN pain -likely need MRI to rule out osteomyelitis #Tardive Dyskinesia: stable, was due to antipsychotic use - stopped 6 months ago -appreciate neuro consultation #ESRD: stable, on HD -s/p HD today - monitor H&H -appreciate nephrology recommendations #Anemia: stable -transfuse as necessary if hgb < 7 #Seizure Disorder: stable -continue keppra 500 BID #SVC syndrome/clot: stable -continue eliquis 5mg BID #FEN -tube feed nepro, appreciate speech/swallow reccs -careful with repletion -no standing fluids #Prophylaxis -On eliquis #Disposition: -possible DC to SNF Visit type - Emergency Visit Emergency Visit: No - New Patient This patient is new to me today: No - Critical Care Critical Care patient: No
[2017-10-22] MEDS ORDERED: CEFTRIAXONE 1 G/50 ML PREMIX 50 ML IVPB SCH (15:30)
--- NOTE | 2017-10-22 20:27 | PN ---
Teaching Attending Note Name of Resident: Claudy Garcia ATTENDING PHYSICIAN STATEMENT I saw and evaluated the patient. I reviewed the resident's note and discussed the case with the resident. I agree with the resident's findings and plan as documented. SUBJECTIVE: No events . denies any pain or SOB OBJECTIVE: NAD, R mouth angle pulled to R . no other asymmetry . Cv: RRR Lungs: biabasilar crackles Abd: soft, Nt, ND , NL BS Skin: wound vac over sacral ulcer . stage 2 at posterior upper R thigh . no drainage Ext: 1 + edema A/P Unfortunate 62 y/o lady with h/o TD , ESRD, VC syndrome , iron def anemia , sacral decub, Dm II , and Ht and other medical problems who presented from wound care with unusual facial movements . 1- sacral decub ulcer. possible infection - ceftriaxon and flagyl - MRI to r/o OM . - d/w ID by resident to evaluate for decision on Abx 2- ESRD: cont HD per renal 3- TD: chronic . monitor off her antiphsycotics 4- h/o seizure , cont keppra 5- SVc syndrome : cont eliquis HLOC pending MRI
[2017-10-22] MEDS: NYSTATIN POWDER 100,000 UNITS/GM - 15 GM TOPICAL POWDER TP SCH (22:08)
[2017-10-23] MEDS ORDERED: INSULIN (NOVOLOG) ASPART 100 UNITS/ML 10ML VIAL ONE ×3 (06:55→11:02)
[2017-10-23] MEDS: INSULIN SLIDING SCALE (NOVOLOG) 1 VIAL SQ SCH ×3 (06:55→16:33)
[2017-10-23] MEDS ORDERED: PT OWN MED DRAWER 7, Y5N ONE ×3 (07:50→22:07)
[2017-10-23 08:23] LABS: HEMATOCRIT 27.6 % (32.4-45.2); HEMOGLOBIN 8.5 GM/dL (10.7-15.3); MCH 27.8 pg (25.7-33.7); MCHC 30.9 g/dl (32.0-36.0); MEAN CELL VOLUME 90.1 fl (80-96); MEAN PLT VOLUME 6.8 fl (7.5-11.1); PLATELET COUNT 512 K/MM3 (134-434); RBC 3.07 M/mm3 (3.60-5.2); RDW 18.1 % (11.6-15.6); WHITE BLOOD COUNT 11.2 K/mm3 (4.0-10.0)
[2017-10-23 09:00] LABS: ANION GAP 10 (8-16); BLOOD UREA NITROGEN 29 mg/dL (7-18); CALCIUM 9.9 mg/dL (8.5-10.1); CHLORIDE 99 mmol/L (98-107); CO2 32 mmol/L (21-32); CREATININE 3.7 mg/dL (0.55-1.02); GLUCOSE,RANDOM 161 mg/dL (74-106); POTASSIUM 3.1 mmol/L (3.5-5.1); SODIUM 141 mmol/L (136-145)
[2017-10-23] MEDS: NYSTATIN POWDER 100,000 UNITS/GM - 15 GM TOPICAL POWDER TP SCH (09:08)
[2017-10-23] MEDS: VITAMIN B COMPLEX W/C COMBO TABLET (FP) PO SCH (09:08)
[2017-10-23] MEDS: LACTOBACILLUS ACIDOPHILUS 1 EACH TAB (FP) GT SCH ×2 (09:08→22:09)
[2017-10-23] MEDS: levETIRAcetam 500 MG/5 ML ORAL SOLUTION (UNIT-DOSE CUPS) GT SCH ×2 (09:09→22:09)
[2017-10-23] MEDS: APIXABAN 5 MG TABLET PO SCH ×2 (09:09→22:09)
[2017-10-23] MEDS: ARTIFICIAL TEARS (POLYVINYL ALCOHOL 1.4%) OPTH DROPS OD SCH ×2 (09:09→22:09)
--- NOTE | 2017-10-23 11:22 | PN ---
Progress Note (short form) - Note Progress Note: ID Ceftriaxone and metronidazole yet no clear idea of what we are treating at this point Take note of low grade temps slightly elevated WBC and platelets yet no clear source of infection though sacrum suspect Selected Entries 10/23/17 10/23/17 01:52 05:54 Temperature 100.1 F H 98.7 F Pulse Rate 90 Respiratory 20 Rate Blood Pressure 123/61 Microbiology 10/18/17 03:30 Wound Gram Stain - Final 10/18/17 03:30 Wound Wound Culture - Final Escherichia Coli Morganella Morganii Strep Agalactiae Group B Beta Hem Streptococcus Group G Diphtheroid/Corynebacterium 10/17/17 14:39 Blood - Peripheral Venous Blood Culture - Final NO GROWTH AFTER 5 DAYS INCUBATION 10/17/17 13:25 Blood - Peripheral Venous Blood Culture - Final NO GROWTH AFTER 5 DAYS INCUBATION Laboratory Tests 10/23/17 07:55 WBC 11.2 H Hgb 8.5 L Hct 27.6 L Plt Count 512 H Assessment Polymicrobial wound culture as expected !! NO clear source of infection Plan Would stop antibiotics at this point/ Obtain CRP and ESR CT scan abd pelvis with sacral attention Lenny HUTSON Problem List - Problems (1) ESRD (end stage renal disease) Code(s): N18.6 - END STAGE RENAL DISEASE (2) Sepsis Code(s): A41.9 - SEPSIS, UNSPECIFIED ORGANISM (3) Decubital ulcer Code(s): L89.90 - PRESSURE ULCER OF UNSPECIFIED SITE, UNSPECIFIED STAGE
[2017-10-23] MEDS: ACETAMINOPHEN 325 MG TABLET (FP) PO PRN ×2 (13:12→18:32)
--- NOTE | 2017-10-23 14:21 | PN ---
Progress Note, MORTUARY OPERATIONS MANAGER - Note Progress Note: Dys puree/thin liquid initiated. TF/PO feeding adjusted and coordinated by RD. Selected Entries 10/22/17 10/22/17 10/22/17 01:58 04:57 06:45 Breakfast Temperature 98.7 F 99.6 F 98.1 F 10/22/17 10/22/17 10/22/17 11:30 13:24 16:10 Breakfast Temperature 98.9 F 98.5 F 98.2 F 10/22/17 10/23/17 10/23/17 22:30 01:52 05:54 Breakfast Temperature 99.7 F H 100.1 F H 98.7 F 10/23/17 10/23/17 09:00 10:11 Breakfast 75% Temperature 98.1 F Laboratory Tests 10/21/17 10/22/17 10/23/17 06:45 06:50 07:55 WBC 11.2 H 11.2 H 11.2 H Tolerating PO diet initiated today. Monitor nutritional and puilmonary status
--- NOTE | 2017-10-23 17:13 | PN ---
Progress Note, Physician History of Present Illness: Pt seen and examined at bedside. She is awake and appears comfortable. - Current Medication List Current Medications: Active Medications Acetaminophen (Tylenol -) 650 mg PO Q4H PRN PRN Reason: FEVER Last Admin: 10/23/17 13:12 Dose: 650 mg Apixaban (Eliquis -) 5 mg PO BID [facility] Last Admin: 10/23/17 09:09 Dose: 5 mg Artificial Tears (Artificial Tears) 1 drop OD BID [facility] Last Admin: 10/23/17 09:09 Dose: 1 drop Insulin Aspart (Novolog Vial Sliding Scale -) 1 vial SQ TIDAC [facility] PRN Reason: Protocol Last Admin: 10/23/17 16:33 Dose: Not Given Lactobacillus Acidophilus (Bacid -) 1 tab GT BID [facility] Last Admin: 10/23/17 09:08 Dose: 1 tab Levetiracetam (Keppra Oral Solution -) 500 mg GT BID [facility] Last Admin: 10/23/17 09:09 Dose: 500 mg Multivitamins (Total B With C -) 1 each PO DAILY [facility] Last Admin: 10/23/17 09:08 Dose: 1 each Nystatin (Nystop Powder -) 1 applic TP DAILY [facility] Last Admin: 10/23/17 09:08 Dose: 1 applic Paricalcitol (Zemplar -) 2 mcg IVPUSH MoWeFr@1000 [facility] Last Admin: 10/22/17 12:04 Dose: Not Given - Objective Vital Signs: Vital Signs Temperature 98.1 F 10/23/17 09:00 Pulse Rate 85 10/23/17 09:00 Respiratory Rate 20 10/23/17 09:00 Blood Pressure 102/64 10/23/17 09:00 O2 Sat by Pulse Oximetry (%) 98 10/23/17 09:00 Constitutional: Yes: Calm Eyes: Yes: Conjunctiva Clear Cardiovascular: Yes: S1, S2 Respiratory: Yes: CTA Bilaterally Gastrointestinal: Yes: Abdomen, Obese, Other (peg) Genitourinary: Yes: Incontinence Musculoskeletal: Yes: Muscle Weakness Edema: Yes Edema: LLE: Trace, RLE: Trace Neurological: Yes: Pre-Existing Deficit Labs: CBC, BMP 10/23/17 07:55 10/23/17 07:55 INR, PTT INR 1.42 (0.82-1.09) H 10/18/17 06:10 Problem List - Problems (1) Decubital ulcer Code(s): L89.90 - PRESSURE ULCER OF UNSPECIFIED SITE, UNSPECIFIED STAGE (2) ESRD (end stage renal disease) Code(s): N18.6 - END STAGE RENAL DISEASE (3) Sepsis Code(s): A41.9 - SEPSIS, UNSPECIFIED ORGANISM Assessment/Plan Current Medications Generic Name Dose Route Start Last Admin Trade Name Freq PRN Reason Stop Dose Admin Acetaminophen 650 mg 10/17/17 19:22 10/23/17 13:12 Tylenol - PO 650 mg Q4H PRN Administration FEVER Apixaban 5 mg 10/18/17 10:00 10/23/17 09:09 Eliquis - PO 5 mg BID [facility] Administration Artificial Tears 1 drop 10/18/17 10:00 10/23/17 09:09 Artificial Tears OD 1 drop BID [facility] Administration Insulin Aspart 1 vial 10/18/17 07:00 10/23/17 16:33 Novolog Vial Sliding Scale - SQ Not Given TIDAC [facility] Protocol Lactobacillus Acidophilus 1 tab 10/18/17 10:00 10/23/17 09:08 Bacid - GT 1 tab BID [facility] Administration Levetiracetam 500 mg 10/17/17 23:00 10/23/17 09:09 Keppra Oral Solution - GT 500 mg BID [facility] Administration Multivitamins 1 each 10/18/17 10:00 10/23/17 09:08 Total B With C - PO 1 each DAILY [facility] Administration Nystatin 1 applic 10/18/17 10:00 10/23/17 09:08 Nystop Powder - TP 1 applic DAILY [facility] Administration Paricalcitol 2 mcg 10/20/17 10:00 10/22/17 12:04 Zemplar - IVPUSH Not Given MoWeFr@1000 [facility] Impression 1. ESRD 2. anemia 3. change in mental status 4. epilepsy 5. htn 6. dm 7. gerd 8. obesity Plan - HD in am - epogen for anemia - monitor hg - cont current management - renal dose abx - will follow Dr Medellin
--- NOTE | 2017-10-23 17:46 | PN ---
Physical Exam: SUBJECTIVE: Patient seen and examined at bedside. Patient is awake and alert. States that she has some mild pain on her sacrum. Denies fevers, chills, nausea , vomiting, diarrhea. OBJECTIVE: Vital Signs Period Temp Pulse Resp BP Sys/Crandall Pulse Ox Last 24 Hr 98.1 F-100.1 F 85-93 20-20 102-123/60-64 98-100 GENERAL: The patient is awake, alert, and fully oriented, in no acute distress. HEAD: Normal with no signs of trauma. LUNGS: Breath sounds equal, clear to auscultation bilaterally, no wheezes, no crackles, no accessory muscle use. HEART: 3/6 holosystolic murmur, S1, S2 without murmur, rub or gallop. ABDOMEN: Obese, Soft, nontender, nondistended, normoactive bowel sounds, no guarding, no rebound, no hepatosplenomegaly, no masses. EXTREMITIES: 2+ pulses, warm, well-perfused, no edema. Surgical scars noted on R arm [employer] representative of previous graft/fistula. large stage 4 Sacral decubitus - wound vac in place draining serosanguinous fluid NEUROLOGICAL: Cranial nerves II through XII grossly intact. Lip smacking observed PSYCH: Normal mood, normal affect. SKIN: Warm, dry, normal turgor, no rashes or lesions noted Laboratory Results - last 24 hr 10/18/17 10/23/17 10/23/17 11:10 06:53 07:55 WBC 11.2 H RBC 3.07 L Hgb 8.5 L Hct 27.6 L MCV 90.1 MCH 27.8 MCHC 30.9 L RDW 18.1 H Plt Count 512 H MPV 6.8 L Sodium Potassium Chloride Carbon Dioxide Anion Gap BUN Creatinine POC Glucometer 171 Random Glucose Calcium C-Reactive Protein Blood Type O POSITIVE Crossmatch See Detail 10/23/17 10/23/17 10/23/17 07:55 07:55 11:01 WBC RBC Hgb Hct MCV MCH MCHC RDW Plt Count MPV Sodium 141 Potassium 3.1 L Chloride 99 Carbon Dioxide 32 Anion Gap 10 BUN 29 H Creatinine 3.7 H POC Glucometer 189 Random Glucose 161 H Calcium 9.9 C-Reactive Protein 13.4 H Cancelled Blood Type Crossmatch 10/23/17 16:33 WBC RBC Hgb Hct MCV MCH MCHC RDW Plt Count MPV Sodium Potassium Chloride Carbon Dioxide Anion Gap BUN Creatinine POC Glucometer 119 Random Glucose Calcium C-Reactive Protein Blood Type Crossmatch Active Medications Generic Name Dose Route Start Last Admin Trade Name Anita PRN Reason Stop Dose Admin Acetaminophen 650 mg 10/17/17 19:22 10/23/17 13:12 Tylenol - PO 650 mg Q4H PRN Administration FEVER Apixaban 5 mg 10/18/17 10:00 10/23/17 09:09 Eliquis - PO 5 mg BID [facility] Administration Artificial Tears 1 drop 10/18/17 10:00 10/23/17 09:09 Artificial Tears OD 1 drop BID [facility] Administration Epoetin Alan 10,000 unit 10/24/17 17:13 Procrit - IVPUSH 10/24/17 17:14 ONCE ONE Insulin Aspart 1 vial 10/18/17 07:00 10/23/17 16:33 Novolog Vial Sliding Scale - SQ Not Given TIDAC [facility] Protocol Lactobacillus Acidophilus 1 tab 10/18/17 10:00 10/23/17 09:08 Bacid - GT 1 tab BID [facility] Administration Levetiracetam 500 mg 10/17/17 23:00 10/23/17 09:09 Keppra Oral Solution - GT 500 mg BID [facility] Administration Multivitamins 1 each 10/18/17 10:00 10/23/17 09:08 Total B With C - PO 1 each DAILY [facility] Administration Nystatin 1 applic 10/18/17 10:00 10/23/17 09:08 Nystop Powder - TP 1 applic DAILY [facility] Administration Paricalcitol 2 mcg 10/20/17 10:00 10/22/17 12:04 Zemplar - IVPUSH Not Given MoWeFr@1000 [facility] ASSESSMENT/PLAN: 62 year old female with a hx of sacral decubitus, tardive diskinesia, ESRD on HD , HTN, SVC syndrome/clot, iron-deficiency anemia, Type 2 diabetes, GERD, and epilepsy is admitted to the hospital for sepsis 2/2 sacral decubitus #Sepsis 2/2 sacral ulcer: stable -discuss with ID about needing ceftriaxone/metronidazole - continue with MRI -appreciate ID consultation -blood cultures negative -wound cultures grew multiple organisms -lactic acid normalized -wound vac in place - patient likely returning to [facility] -tylenol 650 PRN pain #Tardive Dyskinesia: stable, was due to antipsychotic use - stopped 6 months ago -appreciate neuro consultation #ESRD: stable, on HD -HD tomorrow -epogen for anemia per nephro -appreciate nephrology recommendations #Anemia: stable -transfuse as necessary if hgb < 7 #Seizure Disorder: stable -continue keppra 500 BID #SVC syndrome/clot: stable -continue eliquis 5mg BID #FEN -tube feed nepro, appreciate speech/swallow reccs -careful with repletion -no standing fluids #Prophylaxis -On eliquis #Disposition: -possible DC to SNF in AM Visit type - Emergency Visit Emergency Visit: No - New Patient This patient is new to me today: No - Critical Care Critical Care patient: No
--- NOTE | 2017-10-23 18:37 | PN ---
Teaching Attending Note Name of Resident: Claudy Garcia ATTENDING PHYSICIAN STATEMENT I saw and evaluated the patient. I reviewed the resident's note and discussed the case with the resident. I agree with the resident's findings and plan as documented. SUBJECTIVE: No fever or chills. has no pain. no complaints OBJECTIVE: NAD, R mouth angle pulled to R . no other asymmetry . Cv: RRR Lungs: decreased breath sounds b/l bases Abd: soft, Nt, ND , NL BS Ext: 1 + edema A/P Unfortunate 62 y/o lady with h/o TD , ESRD, VC syndrome , iron def anemia , sacral decub, Dm II , and Ht and other medical problems who presented from wound care with unusual facial movements . 1- Sacral decub ulcer. possible infection - ceftriaxon and flagyl - MRI to r/o OM . 2- ESRD: cont HD per renal 3- TD: chronic . monitor off her antiphsycotics 4- h/o seizure , cont keppra 5- SVc syndrome : cont eliquis HLOC pending MRI , after that SNF
[2017-10-24] MEDS: INSULIN SLIDING SCALE (NOVOLOG) 1 VIAL SQ SCH ×3 (06:02→16:22)
[2017-10-24 08:11] LABS: HEMATOCRIT 27.2 % (32.4-45.2); HEMOGLOBIN 8.4 GM/dL (10.7-15.3); MCH 28.1 pg (25.7-33.7); MEAN CELL VOLUME 90.6 fl (80-96); PLATELET COUNT 513 K/MM3 (134-434); RDW 17.9 % (11.6-15.6); WHITE BLOOD COUNT 11.3 K/mm3 (4.0-10.0)
[2017-10-24 08:12] LABS: ANION GAP 12 (8-16); BLOOD UREA NITROGEN 47 mg/dL (7-18); CALCIUM 10.2 mg/dL (8.5-10.1); CHLORIDE 98 mmol/L (98-107); CO2 30 mmol/L (21-32); GLUCOSE,RANDOM 165 mg/dL (74-106); POTASSIUM 3.6 mmol/L (3.5-5.1); SODIUM 140 mmol/L (136-145)
[2017-10-24 08:14] LABS: CREATININE 5.1 mg/dL (0.55-1.02)
[2017-10-24] MEDS ORDERED: PT OWN MED DRAWER 7, Y5N ONE (09:40)
[2017-10-24] MEDS: levETIRAcetam 500 MG/5 ML ORAL SOLUTION (UNIT-DOSE CUPS) GT SCH ×2 (09:42→22:13)
[2017-10-24] MEDS: LACTOBACILLUS ACIDOPHILUS 1 EACH TAB (FP) GT SCH ×2 (09:42→22:13)
[2017-10-24] MEDS: NYSTATIN POWDER 100,000 UNITS/GM - 15 GM TOPICAL POWDER TP SCH (09:42)
[2017-10-24] MEDS: APIXABAN 5 MG TABLET PO SCH ×2 (09:42→22:13)
[2017-10-24] MEDS: VITAMIN B COMPLEX W/C COMBO TABLET (FP) PO SCH (09:42)
[2017-10-24] MEDS: ARTIFICIAL TEARS (POLYVINYL ALCOHOL 1.4%) OPTH DROPS OD SCH ×2 (09:42→22:18)
--- NOTE | 2017-10-24 12:39 | PN ---
Progress Note (short form) - Note Progress Note: awake and alert no complaints vac on sacrum - placed yesterday Vital Signs Period Temp Pulse Resp BP Sys/Crandall Pulse Ox Last 24 Hr 97.9 F-99.4 F 86-95 18-20 100-127/50-69 96-100 facial grimacing cor-rrr llungs clear abd soft,nt +GT ext no edema CBC, BMP 10/24/17 06:30 10/24/17 06:30 Laboratory Tests 10/23/17 07:55 C-Reactive Protein 13.4 H Microbiology 10/17/17 14:39 Blood - Peripheral Venous Blood Culture - Final NO GROWTH AFTER 5 DAYS INCUBATION 10/17/17 13:25 Blood - Peripheral Venous Blood Culture - Final NO GROWTH AFTER 5 DAYS INCUBATION 10/18/17 03:30 Wound Gram Stain - Final 10/18/17 03:30 Wound Wound Culture - Final Escherichia Coli Morganella Morganii Strep Agalactiae Group B Beta Hem Streptococcus Group G Diphtheroid/Corynebacterium a/p workup for sacral osteo in progress- imaging pending currently off antibiotics
--- NOTE | 2017-10-24 13:12 | PN ---
Progress Note, FRONT LINE SUPERVISOR - Note Progress Note: Selected Entries 10/23/17 10/23/17 10/23/17 01:52 05:54 09:00 Breakfast Supper Temperature 100.1 F H 98.7 F 98.1 F 10/23/17 10/23/17 10/23/17 10:11 18:00 18:35 Breakfast 75% Supper 50% Temperature 97.9 F 10/23/17 10/24/17 10/24/17 22:00 02:05 06:23 Breakfast Supper Temperature 99.4 F 98.3 F 99.2 F 10/24/17 10/24/17 09:00 09:49 Breakfast 50% Supper Temperature 98.3 F Tolerating PO diet with GT feeding nocturnally for needed nutritional support.
[2017-10-24] MEDS: ACETAMINOPHEN 325 MG TABLET (FP) PO PRN (14:25)
--- NOTE | 2017-10-24 14:41 | PN ---
Physical Exam: SUBJECTIVE: Patient seen and examined at bedside. No overnight events, patient is scheduled for HD today. OBJECTIVE: Vital Signs Period Temp Pulse Resp BP Sys/Crandall Pulse Ox Last 24 Hr 97.9 F-99.4 F 86-95 18-20 99-127/50-69 96-100 GENERAL: The patient is awake, alert, and fully oriented, in no acute distress. HEAD: Normal with no signs of trauma. LUNGS: Breath sounds equal, clear to auscultation bilaterally, no wheezes, no crackles, no accessory muscle use. HEART: 3/6 holosystolic murmur, S1, S2 without murmur, rub or gallop. ABDOMEN: Obese, Soft, nontender, nondistended, normoactive bowel sounds, no guarding, no rebound, no hepatosplenomegaly, no masses. EXTREMITIES: 2+ pulses, warm, well-perfused, no edema. Surgical scars noted on R arm [employer] representative of previous graft/fistula. large stage 4 Sacral decubitus - wound vac in place NEUROLOGICAL: Cranial nerves II through XII grossly intact. Lip smacking observed PSYCH: Normal mood, normal affect. SKIN: Warm, dry, normal turgor, no rashes or lesions noted Laboratory Results - last 24 hr 10/23/17 10/23/17 10/24/17 16:33 22:05 05:55 WBC RBC Hgb Hct MCV MCH MCHC RDW Plt Count MPV Sodium Potassium Chloride Carbon Dioxide Anion Gap BUN Creatinine POC Glucometer 119 173 191 Random Glucose Calcium 10/24/17 10/24/17 10/24/17 06:30 06:30 11:07 WBC 11.3 H RBC 3.00 L Hgb 8.4 L Hct 27.2 L MCV 90.6 MCH 28.1 MCHC 31.0 L RDW 17.9 H Plt Count 513 H MPV 7.0 L Sodium 140 Potassium 3.6 Chloride 98 Carbon Dioxide 30 Anion Gap 12 BUN 47 H Creatinine 5.1 H POC Glucometer 132 Random Glucose 165 H Calcium 10.2 H Active Medications Generic Name Dose Route Start Last Admin Trade Name Freq PRN Reason Stop Dose Admin Acetaminophen 650 mg 10/17/17 19:22 10/24/17 14:25 Tylenol - PO 650 mg Q4H PRN Administration FEVER Apixaban 5 mg 10/18/17 10:00 10/24/17 09:42 Eliquis - PO 5 mg BID RO[facility] Administration Artificial Tears 1 drop 10/18/17 10:00 10/24/17 09:42 Artificial Tears OD 1 drop BID [facility] Administration Epoetin Alan 10,000 unit 10/24/17 17:13 Procrit - IVPUSH 10/24/17 17:14 ONCE ONE Insulin Aspart 1 vial 10/18/17 07:00 10/24/17 11:08 Novolog Vial Sliding Scale - SQ Not Given TIDAC [facility] Protocol Lactobacillus Acidophilus 1 tab 10/18/17 10:00 10/24/17 09:42 Bacid - GT 1 tab BID [facility] Administration Levetiracetam 500 mg 10/17/17 23:00 10/24/17 09:42 Keppra Oral Solution - GT 500 mg BID ROSE[facility]N Administration Multivitamins 1 each 10/18/17 10:00 10/24/17 09:42 Total B With C - PO 1 each DAILY [facility] Administration Nystatin 1 applic 10/18/17 10:00 10/24/17 09:42 Nystop Powder - TP 1 applic DAILY [facility] Administration Paricalcitol 2 mcg 10/20/17 10:00 10/22/17 12:04 Zemplar - IVPUSH Not Given MoWeFr@1000 [facility] ASSESSMENT/PLAN: 62 year old female with a hx of sacral decubitus, tardive diskinesia, ESRD on HD , HTN, SVC syndrome/clot, iron-deficiency anemia, Type 2 diabetes, GERD, and epilepsy is admitted to the hospital for sepsis 2/2 sacral decubitus #Sepsis 2/2 sacral ulcer: stable -no current abx -WAITING ON MRI SACRUM -appreciate ID consultation -blood cultures negative -wound cultures grew multiple organisms -lactic acid normalized -wound vac in place - patient likely returning to [facility] -tylenol 650 PRN pain #Tardive Dyskinesia: stable, was due to antipsychotic use - stopped 6 months ago -appreciate neuro consultation #ESRD: stable, on HD -HD today -appreciate nephrology recommendations #Anemia: stable -transfuse as necessary if hgb < 7 #Seizure Disorder: stable -continue keppra 500 BID #SVC syndrome/clot: stable -continue eliquis 5mg BID #FEN -tube feed nepro, appreciate speech/swallow reccs (6pm-6am - 12 hours) -dysphagia puree -careful with repletion -no standing fluids #Prophylaxis -On eliquis #Disposition: -possible DC to SNF in AM pending MRI results Visit type - Emergency Visit Emergency Visit: No - New Patient This patient is new to me today: No - Critical Care Critical Care patient: No
--- NOTE | 2017-10-24 16:53 | PN ---
Progress Note, Physician History of Present Illness: Pt seen and examined at bedside. She is tolerating HD. He denies shortness of breath. - Current Medication List Current Medications: Active Medications Acetaminophen (Tylenol -) 650 mg PO Q4H PRN PRN Reason: FEVER Last Admin: 10/24/17 14:25 Dose: 650 mg Amino Acids (Prosource No Carb Liquid Pkt) 30 ml PO BID@0800,1730 [facility] Apixaban (Eliquis -) 5 mg PO BID [facility] Last Admin: 10/24/17 09:42 Dose: 5 mg Artificial Tears (Artificial Tears) 1 drop OD BID [facility] Last Admin: 10/24/17 09:42 Dose: 1 drop Epoetin Alan (Procrit -) 10,000 unit IVPUSH ONCE ONE Stop: 10/24/17 17:14 Insulin Aspart (Novolog Vial Sliding Scale -) 1 vial SQ TIDAC [facility] PRN Reason: Protocol Last Admin: 10/24/17 16:22 Dose: Not Given Lactobacillus Acidophilus (Bacid -) 1 tab GT BID [facility] Last Admin: 10/24/17 09:42 Dose: 1 tab Levetiracetam (Keppra Oral Solution -) 500 mg GT BID [facility] Last Admin: 10/24/17 09:42 Dose: 500 mg Multivitamins (Total B With C -) 1 each PO DAILY [facility] Last Admin: 10/24/17 09:42 Dose: 1 each Nystatin (Nystop Powder -) 1 applic TP DAILY [facility] Last Admin: 10/24/17 09:42 Dose: 1 applic Paricalcitol (Zemplar -) 2 mcg IVPUSH MoWeFr@1000 [facility] Last Admin: 10/22/17 12:04 Dose: Not Given - Objective Vital Signs: Vital Signs Temperature 98.2 F 10/24/17 13:24 Pulse Rate 86 10/24/17 15:30 Respiratory Rate 18 10/24/17 15:30 Blood Pressure 123/61 10/24/17 15:30 O2 Sat by Pulse Oximetry (%) 100 10/24/17 09:00 Constitutional: Yes: Calm Eyes: Yes: Conjunctiva Clear HENT: Yes: Atraumatic Neck: Yes: Supple Cardiovascular: Yes: S1, S2 Gastrointestinal: Yes: Soft, Other (peg) Genitourinary: Yes: Incontinence Edema: Yes Edema: LLE: Trace, RLE: Trace Neurological: Yes: Pre-Existing Deficit Labs: CBC, BMP 10/24/17 06:30 10/24/17 06:30 INR, PTT INR 1.42 (0.82-1.09) H 10/18/17 06:10 Problem List - Problems (1) Decubital ulcer Code(s): L89.90 - PRESSURE ULCER OF UNSPECIFIED SITE, UNSPECIFIED STAGE (2) ESRD (end stage renal disease) Code(s): N18.6 - END STAGE RENAL DISEASE (3) Sepsis Code(s): A41.9 - SEPSIS, UNSPECIFIED ORGANISM Assessment/Plan Current Medications Generic Name Dose Route Start Last Admin Trade Name Freq PRN Reason Stop Dose Admin Acetaminophen 650 mg 10/17/17 19:22 10/24/17 14:25 Tylenol - PO 650 mg Q4H PRN Administration FEVER Amino Acids 30 ml 10/24/17 17:30 Prosource No Carb Liquid Pkt PO BID@0800,1730 [facility] Apixaban 5 mg 10/18/17 10:00 10/24/17 09:42 Eliquis - PO 5 mg BID [facility]SE[facility] Administration Artificial Tears 1 drop 10/18/17 10:00 10/24/17 09:42 Artificial Tears OD 1 drop BID [facility] Administration Epoetin Alan 10,000 unit 10/24/17 17:13 Procrit - IVPUSH 10/24/17 17:14 ONCE ONE Insulin Aspart 1 vial 10/18/17 07:00 10/24/17 16:22 Novolog Vial Sliding Scale - SQ Not Given TIDAC [facility] Protocol Lactobacillus Acidophilus 1 tab 10/18/17 10:00 10/24/17 09:42 Bacid - GT 1 tab BID ROSE[facility]N Administration Levetiracetam 500 mg 10/17/17 23:00 10/24/17 09:42 Keppra Oral Solution - GT 500 mg BID ROSE[facility]N Administration Multivitamins 1 each 10/18/17 10:00 10/24/17 09:42 Total B With C - PO 1 each DAILY ROSE[facility] Administration Nystatin 1 applic 10/18/17 10:00 10/24/17 09:42 Nystop Powder - TP 1 applic DAILY [facility] Administration Paricalcitol 2 mcg 10/20/17 10:00 10/22/17 12:04 Zemplar - IVPUSH Not Given MoWeFr@1000 [facility] Impression 1. ESRD 2. anemia 3. change in mental status 4. epilepsy 5. htn 6. dm 7. gerd 8. obesity 9. hypercalcemia Plan - HD today - hold zemplar - check pth - repeat cmp and check albumin - epogen for anemia - monitor hg - will follow Dr Medellin
[2017-10-24] MEDS: PARICALCITOL 5 MCG/ML VIAL IVPUSH SCH (17:00)
[2017-10-24] MEDS ORDERED: EPOETIN ALFA 10,000 UNIT/1 ML VIAL IVPUSH ONE (17:13)
[2017-10-24] MEDS: AMINO ACIDS/PROTEIN HYDROLYS 30 ML LIQUID.PKT PO SCH (18:19)
--- NOTE | 2017-10-24 18:41 | PN ---
Teaching Attending Note Name of Resident: Claudy Garcia ATTENDING PHYSICIAN STATEMENT I saw and evaluated the patient. I reviewed the resident's note and discussed the case with the resident. I agree with the resident's findings and plan as documented. SUBJECTIVE: No fever or chills, no pain. no events OBJECTIVE: NAD, R mouth angle pulled to R . no other asymmetry . lip smacking activity Cv: RRR Lungs: decreased breath sounds b/l bases Abd: soft, Nt, ND , NL BS Ext: 1 + edema A/P Unfortunate 62 y/o lady with h/o TD , ESRD, VC syndrome , iron def anemia , sacral decub, Dm II , and Ht and other medical problems who presented from wound care with unusual facial movements . 1- Sacral decub ulcer. possible infection - Abx stopped by ID - MRI pending to r/o OM . 2- ESRD: cont HD per renal 3- TD: chronic. monitor off her antiphsycotics 4- h/o seizure , cont keppra 5- SVc syndrome : cont eliquis HLOC pending MRI , after that SNF
[2017-10-24] MEDS ORDERED: INSULIN (NOVOLOG) ASPART 100 UNITS/ML 10ML VIAL ONE (20:38)
[2017-10-25] MEDS: INSULIN SLIDING SCALE (NOVOLOG) 1 VIAL SQ SCH ×3 (06:22→17:56)
[2017-10-25] MEDS ORDERED: INSULIN (NOVOLOG) ASPART 100 UNITS/ML 10ML VIAL ONE (06:24)
[2017-10-25 08:50] LABS: HEMATOCRIT 29.7 % (32.4-45.2); HEMOGLOBIN 9.1 GM/dL (10.7-15.3); MCH 27.8 pg (25.7-33.7); MCHC 30.7 g/dl (32.0-36.0); MEAN CELL VOLUME 90.5 fl (80-96); RBC 3.28 M/mm3 (3.60-5.2); RDW 18.3 % (11.6-15.6)
[2017-10-25 08:51] LABS: CHLORIDE 100 mmol/L (98-107); SODIUM 141 mmol/L (136-145)
[2017-10-25 08:59] LABS: ALBUMIN 2.7 g/dl (3.4-5.0); ALK PHOS 144 U/L (45-117); ANION GAP 10 (8-16); BILIRUBIN,TOTAL 0.6 mg/dL (0.2-1.0); BLOOD UREA NITROGEN 41 mg/dL (7-18); CALCIUM 10.4 mg/dL (8.5-10.1); CO2 31 mmol/L (21-32); CREATININE 4.4 mg/dL (0.55-1.02); GLUCOSE,RANDOM 151 mg/dL (74-106); SGPT/ALT 30 U/L (12-78); TOT PROT 7.3 g/dl (6.4-8.2)
[2017-10-25 09:01] LABS: SGOT/AST 45 U/L (15-37)
[2017-10-25 09:53] LABS: MEAN PLT VOLUME 7.9 fl (7.5-11.1); PLATELET COUNT 565 K/MM3 (134-434)
[2017-10-25] MEDS: AMINO ACIDS/PROTEIN HYDROLYS 30 ML LIQUID.PKT PO SCH ×2 (10:44→18:39)
[2017-10-25 12:11] LABS: HEMOGLOBIN 9.3 GM/dL (10.7-15.3); MCH 28.7 pg (25.7-33.7); MCHC 32.1 g/dl (32.0-36.0); MEAN CELL VOLUME 89.6 fl (80-96); MEAN PLT VOLUME 7.9 fl (7.5-11.1); PLATELET COUNT 564 K/MM3 (134-434); RBC 3.23 M/mm3 (3.60-5.2); RDW 17.4 % (11.6-15.6)
[2017-10-25 12:14] LABS: WHITE BLOOD COUNT 24.1 K/mm3 (4.0-10.0)
[2017-10-25 12:21] LABS: PLATELET ESTIMATE INCREASED
--- NOTE | 2017-10-25 12:22 | PN ---
Progress Note (short form) - Note Progress Note: awake and alert no complaints vac on sacrum - placed yesterday Vital Signs Period Temp Pulse Resp BP Sys/Crandall Pulse Ox Last 24 Hr 97.9 F-98.7 F 60-102 90-126/33-72 98 cor-rrr lungs clear abd soft,nt sacral wound stage 3 clean ext no edema CBC, BMP 10/25/17 08:00 10/25/17 07:55 Microbiology 10/17/17 14:39 Blood - Peripheral Venous Blood Culture - Final NO GROWTH AFTER 5 DAYS INCUBATION 10/17/17 13:25 Blood - Peripheral Venous Blood Culture - Final NO GROWTH AFTER 5 DAYS INCUBATION 10/18/17 03:30 Wound Gram Stain - Final 10/18/17 03:30 Wound Wound Culture - Final Escherichia Coli Morganella Morganii Strep Agalactiae Group B Beta Hem Streptococcus Group G Diphtheroid/Corynebacterium a/p leukocytosis- rectal temp 99 will get blood cultures stool cdiff workup for sacral osteo in progress- imaging pending currently off antibiotics esrd/hd
[2017-10-25] MEDS: LACTOBACILLUS ACIDOPHILUS 1 EACH TAB (FP) GT SCH ×2 (12:45→22:38)
[2017-10-25] MEDS: VITAMIN B COMPLEX W/C COMBO TABLET (FP) PO SCH (12:45)
[2017-10-25] MEDS ORDERED: PT OWN MED DRAWER 7, Y5N ONE ×2 (12:47→21:57)
[2017-10-25] MEDS: ARTIFICIAL TEARS (POLYVINYL ALCOHOL 1.4%) OPTH DROPS OD SCH ×2 (12:48→22:38)
[2017-10-25] MEDS: levETIRAcetam 500 MG/5 ML ORAL SOLUTION (UNIT-DOSE CUPS) GT SCH ×2 (12:48→22:38)
[2017-10-25] MEDS: NYSTATIN POWDER 100,000 UNITS/GM - 15 GM TOPICAL POWDER TP SCH (12:49)
[2017-10-25] MEDS: APIXABAN 5 MG TABLET PO SCH ×2 (12:49→22:38)
[2017-10-25] MEDS: ACETAMINOPHEN 325 MG TABLET (FP) PO PRN (13:13)
--- NOTE | 2017-10-25 15:37 | PN ---
Addendum entered and electronically signed by Jaspal Perez, 10/25/17 16:53: Pt has not had MRI yet due to unknown stent type. Vascular surgeon is Dr. Viktor Phoenix who did procedure. Office phone number is [phone]. Son is also attempting to get stent information for us. Addendum entered and electronically signed by Jaspal Perez RESIDENT 10/25/17 16:11: Hypercalcemia - corrected ca 11.44, monitor PTH levels, still pending Original Note: Physical Exam: SUBJECTIVE: Patient seen and examined at bedside. Appears somewhat lethargic. When asked if she feels alright she says yes but further history difficult to obtain. No acute events noted overnight. OBJECTIVE: Vital Signs Temperature 98 F 10/25/17 14:02 Pulse Rate 94 H 10/25/17 14:02 Respiratory Rate 20 10/25/17 14:02 Blood Pressure 124/64 10/25/17 14:02 O2 Sat by Pulse Oximetry (%) 98 10/24/17 21:00 GENERAL: The patient is awake, alert, and oriented to self, in no acute distress. Somewhat lethargic. HEAD: Normal with no signs of trauma. LUNGS: Breath sounds equal, clear to auscultation bilaterally, no wheezes, no crackles, no accessory muscle use. HEART: 2/6 systolic murmur best heard in aortic region, S1, S2, RRR ABDOMEN: Obese, Soft, nontender, nondistended, normoactive bowel sounds, no guarding, no rebound, no hepatosplenomegaly, no masses. EXTREMITIES: warm, well-perfused, no edema. NEUROLOGICAL: Somewhat lethargic SKIN: Warm, dry. stage 4 sacral decub ulcer noted w/clean base. wound vac in place. Laboratory Results - last 24 hr 10/25/17 10/25/17 10/25/17 06:19 07:55 07:55 WBC 22.0 H D RBC 3.28 L Hgb 9.1 L Hct 29.7 L MCV 90.5 MCH 27.8 MCHC 30.7 L RDW 18.3 H Plt Count 565 H MPV 7.9 D Total Counted Neutrophils % Neutrophils % (Manual) Lymphocytes % Lymphocytes % (Manual) Monocytes % (Manual) Eosinophils % (Manual) Basophils % (Manual) Platelet Estimate Platelet Comment No clumping noted Sodium 141 Potassium 4.0 Chloride 100 Carbon Dioxide 31 Anion Gap 10 BUN 41 H Creatinine 4.4 H Creat Clearance w eGFR 10.16 POC Glucometer 174 Random Glucose 151 H Calcium 10.4 H Total Bilirubin 0.6 AST 45 H ALT 30 Alkaline Phosphatase 144 H Total Protein 7.3 Albumin 2.7 L 10/25/17 10/25/17 08:00 12:42 WBC 24.1 H RBC 3.23 L Hgb 9.3 L Hct 29.0 L MCV 89.6 MCH 28.7 MCHC 32.1 RDW 17.4 H Plt Count 564 H MPV 7.9 Total Counted 100 Neutrophils % No Result Required. Neutrophils % (Manual) 64.0 Lymphocytes % No Result Required. Lymphocytes % (Manual) 30.0 Monocytes % (Manual) 2 L Eosinophils % (Manual) 2.0 Basophils % (Manual) 2.0 Platelet Estimate Increased Platelet Comment Sodium Potassium Chloride Carbon Dioxide Anion Gap BUN Creatinine Creat Clearance w eGFR POC Glucometer 188 Random Glucose Calcium Total Bilirubin AST ALT Alkaline Phosphatase Total Protein Albumin Imaging: CXR 10/25/17: Extensive bilateral vascular stenting. No acute chest pathology. Active Medications Generic Name Dose Route Start Last Admin Trade Name Freq PRN Reason Stop Dose Admin Acetaminophen 650 mg 10/17/17 19:22 10/25/17 13:13 Tylenol - PO 650 mg Q4H PRN Administration FEVER Amino Acids 30 ml 10/24/17 17:30 10/25/17 10:44 Prosource No Carb Liquid Pkt PO 30 ml BID@0800,1730 ROSELYN Administration Apixaban 5 mg 10/18/17 10:00 10/25/17 12:49 Eliquis - PO 5 mg BID ROSELYN Administration Artificial Tears 1 drop 10/18/17 10:00 10/25/17 12:48 Artificial Tears OD 1 drop BID ROSELYN Administration Insulin Aspart 1 vial 10/18/17 07:00 10/25/17 12:45 Novolog Vial Sliding Scale - SQ 2 units TIDAC ROSELYN Administration Protocol Lactobacillus Acidophilus 1 tab 10/18/17 10:00 10/25/17 12:45 Bacid - GT 1 tab BID ROSELYN Administration Levetiracetam 500 mg 10/17/17 23:00 10/25/17 12:48 Keppra Oral Solution - GT 500 mg BID ROSELYN Administration Multivitamins 1 each 10/18/17 10:00 10/25/17 12:45 Total B With C - PO 1 each DAILY ROSELYN Administration Nystatin 1 applic 10/18/17 10:00 10/25/17 12:49 Nystop Powder - TP 1 applic DAILY ROSELYN Administration ASSESSMENT/PLAN: 62 y/o F w/PMH of tardive dyskinesia, ESRD on HD, HTN, SVC syndrome, iron def anemia, DM2, GERD, epilepsy is admitted for sepsis secondary to sacral decub ulcer. -Sepsis secondary to sacral decub ulcer -holding off on abx currently, cxr with no signs of infection, f/u c. diff -wbc up to 24 now, will follow ID recs on abx -c/w wound vac use -tylenol 650 mg q4h prn for fever or pain -ESRD -on HD. Last session was yesterday -nephro on board -Tardive dyskinesia -likely secondary to past antipsychotic use -Anemia -monitor CBC, transfuse if hgb <7 -h/h stable currently -hx of seizures -c/w keppra 500 mg bid -svc syndrome -c/w eliquis 5 mg po bid -DVT ppx -on eliquis 5 mg po bid -FEN -no fluids -monitor electrolytes -tube feed w/nepro as per dietary recs -Dispo: -monitor on m/s, to be discharged to SNF when improved. Visit type - Emergency Visit Emergency Visit: Yes ED Registration Date: 10/17/17 Care time: The patient presented to the Emergency Department on the above date and was hospitalized for further evaluation of their emergent condition. - New Patient This patient is new to me today: No - Critical Care Critical Care patient: No
--- NOTE | 2017-10-25 17:25 | PN ---
Teaching Attending Note Name of Resident: Jaspal Perez ATTENDING PHYSICIAN STATEMENT I saw and evaluated the patient. I reviewed the resident's note and discussed the case with the resident. I agree with the resident's findings and plan as documented. SUBJECTIVE: pain in sacral area. no other pain or SOB OBJECTIVE: NAD, more symmetry in face today. lip smacking activity is less noted today Cv: RRR Lungs: decreased breath sounds b/l bases Abd: soft, Nt, ND , NL BS Ext: 1 + edema Sacral area , with wound vac , removed, stage 4 wound with granulomatous tissue and fibrinous exudate . A/P Unfortunate 62 y/o lady with h/o TD , ESRD, VC syndrome , iron def anemia , sacral decub, Dm II , and Ht and other medical problems who presented from wound care with unusual facial movements . 1- Sacral decub ulcer. leukocytosis worsened today. - cxray with no infiltrate - c diff if stooling - MRI of sacarl are is pending 2- ESRD: cont HD per renal of [facility] 3- TD: chronic. monitor off her antiphsycotics 4- h/o seizure , cont keppra 5- SVc syndrome : cont eliquis HLOC
--- NOTE | 2017-10-25 20:09 | PN ---
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 esrd s/p interrupted HD yesterday due to hypotension today she denies any sob Current Medications Acetaminophen (Tylenol -) 650 mg PO Q4H PRN PRN Reason: FEVER Last Admin: 10/25/17 13:13 Dose: 650 mg Amino Acids (Prosource No Carb Liquid Pkt) 30 ml PO BID@0800,1730 [facility] Last Admin: 10/25/17 18:39 Dose: 30 ml Apixaban (Eliquis -) 5 mg PO BID [facility] Last Admin: 10/25/17 12:49 Dose: 5 mg Artificial Tears (Artificial Tears) 1 drop OD BID [facility] Last Admin: 10/25/17 12:48 Dose: 1 drop Insulin Aspart (Novolog Vial Sliding Scale -) 1 vial SQ TIDAC [facility] PRN Reason: Protocol Last Admin: 10/25/17 17:56 Dose: Not Given Lactobacillus Acidophilus (Bacid -) 1 tab GT BID [facility] Last Admin: 10/25/17 12:45 Dose: 1 tab Levetiracetam (Keppra Oral Solution -) 500 mg GT BID [facility] Last Admin: 10/25/17 12:48 Dose: 500 mg Multivitamins (Total B With C -) 1 each PO DAILY [facility] Last Admin: 10/25/17 12:45 Dose: 1 each Nystatin (Nystop Powder -) 1 applic TP DAILY [facility] Last Admin: 10/25/17 12:49 Dose: 1 applic Last Vital Signs Temp Pulse Resp BP Pulse Ox 98.8 F 91 H 20 101/67 98 10/25/17 18:26 10/25/17 18:26 10/25/17 18:26 10/25/17 18:26 10/25/17 09:00 lungs clear heart reg abd soft ext no edema CBC, BMP 10/25/17 08:00 10/25/17 07:55 IMP-esrd euvolemic Plan- HD on Friday
[2017-10-26] MEDS: INSULIN SLIDING SCALE (NOVOLOG) 1 VIAL SQ SCH ×3 (07:20→17:48)
[2017-10-26 07:54] LABS: BASO % 0.9 % (0-2.0); EOS % 3.7 % (0-4.5); HEMATOCRIT 29.1 % (32.4-45.2); HEMOGLOBIN 9.4 GM/dL (10.7-15.3); MCH 28.5 pg (25.7-33.7); MCHC 32.5 g/dl (32.0-36.0); MEAN CELL VOLUME 87.7 fl (80-96); MEAN PLT VOLUME 7.1 fl (7.5-11.1); MONO % 4.5 % (3.8-10.2); NEUT % 63.9 % (42.8-82.8); PLATELET COUNT 583 K/MM3 (134-434); RBC 3.31 M/mm3 (3.60-5.2); RDW 17.4 % (11.6-15.6); WHITE BLOOD COUNT 10.6 K/mm3 (4.0-10.0)
[2017-10-26] MEDS ORDERED: PT OWN MED DRAWER 7, Y5N ONE (08:59)
[2017-10-26] MEDS: AMINO ACIDS/PROTEIN HYDROLYS 30 ML LIQUID.PKT PO SCH ×2 (09:22→18:47)
[2017-10-26 09:23] LABS: ALBUMIN 2.7 g/dl (3.4-5.0); ANION GAP 11 (8-16); BILIRUBIN,TOTAL 0.4 mg/dL (0.2-1.0); BLOOD UREA NITROGEN 53 mg/dL (7-18); CALCIUM 9.9 mg/dL (8.5-10.1); CHLORIDE 99 mmol/L (98-107); CO2 29 mmol/L (21-32); CREATININE 5.8 mg/dL (0.55-1.02); GLUCOSE,RANDOM 146 mg/dL (74-106); POTASSIUM 3.6 mmol/L (3.5-5.1); SGOT/AST 22 U/L (15-37); SGPT/ALT 30 U/L (12-78); SODIUM 139 mmol/L (136-145); TOT PROT 7.1 g/dl (6.4-8.2)
[2017-10-26 09:24] LABS: ALK PHOS 140 U/L (45-117)
--- NOTE | 2017-10-26 10:01 | PN ---
Progress Note (short form) - Note Progress Note: awake and alert feels well no complaints vac on sacrum - placed yesterday Vital Signs Period Temp Pulse Resp BP Sys/Crandall Pulse Ox Last 24 Hr 97.4 F-99.9 F 91-95 18-20 101-138/52-89 98 cor-rrr lungs clear abd - soft,nt ext no edema vac in place CBC, BMP 10/26/17 06:00 10/26/17 06:00 Microbiology 10/17/17 14:39 Blood - Peripheral Venous Blood Culture - Final NO GROWTH AFTER 5 DAYS INCUBATION 10/17/17 13:25 Blood - Peripheral Venous Blood Culture - Final NO GROWTH AFTER 5 DAYS INCUBATION 10/18/17 03:30 Wound Gram Stain - Final 10/18/17 03:30 Wound Wound Culture - Final Escherichia Coli Morganella Morganii Strep Agalactiae Group B Beta Hem Streptococcus Group G Diphtheroid/Corynebacterium a/p leukocytosis- resolved!, transient f/u blood cultures f/u cdiff workup for sacral osteo in progress- imaging pending currently off antibiotics esrd/hd
[2017-10-26] MEDS: ACETAMINOPHEN 325 MG TABLET (FP) PO PRN (11:21)
[2017-10-26] MEDS: VITAMIN B COMPLEX W/C COMBO TABLET (FP) PO SCH (11:22)
[2017-10-26] MEDS: LACTOBACILLUS ACIDOPHILUS 1 EACH TAB (FP) GT SCH ×2 (11:22→22:12)
[2017-10-26] MEDS: APIXABAN 5 MG TABLET PO SCH ×2 (11:22→22:12)
[2017-10-26] MEDS: NYSTATIN POWDER 100,000 UNITS/GM - 15 GM TOPICAL POWDER TP SCH (11:23)
[2017-10-26] MEDS: levETIRAcetam 500 MG/5 ML ORAL SOLUTION (UNIT-DOSE CUPS) GT SCH ×2 (11:23→22:12)
[2017-10-26] MEDS: ARTIFICIAL TEARS (POLYVINYL ALCOHOL 1.4%) OPTH DROPS OD SCH ×2 (11:23→22:12)
[2017-10-26] MEDS ORDERED: INSULIN (NOVOLOG) ASPART 100 UNITS/ML 10ML VIAL ONE ×2 (12:20→21:03)
--- NOTE | 2017-10-26 13:00 | PN ---
Progress Note (short form) - Note Progress Note: Subjective: pain in sacral area . No SOB Objective: Vital Signs: Last Vital Signs Temp Pulse Resp BP Pulse Ox 98.1 F 95 H 18 124/60 98 10/26/17 11:36 10/26/17 11:36 10/26/17 11:36 10/26/17 11:36 10/25/17 21:00 Laboratory Results - last 24 hr 10/25/17 10/25/17 10/25/17 07:55 12:42 17:12 WBC RBC Hgb Hct MCV MCH MCHC RDW Plt Count MPV Neutrophils % Lymphocytes % Monocytes % Eosinophils % Basophils % Sodium Potassium Chloride Carbon Dioxide Anion Gap BUN Creatinine Creat Clearance w eGFR POC Glucometer 188 144 Random Glucose Calcium 10.5 H Total Bilirubin AST ALT Alkaline Phosphatase Total Protein Albumin PTH Intact 215 H PTH Intact Intraop 0 m 10/26/17 10/26/17 10/26/17 06:00 06:00 06:39 WBC 10.6 H D RBC 3.31 L Hgb 9.4 L Hct 29.1 L MCV 87.7 MCH 28.5 MCHC 32.5 RDW 17.4 H Plt Count 583 H MPV 7.1 L D Neutrophils % 63.9 Lymphocytes % 27.0 D Monocytes % 4.5 Eosinophils % 3.7 D Basophils % 0.9 Sodium 139 Potassium 3.6 Chloride 99 Carbon Dioxide 29 Anion Gap 11 BUN 53 H Creatinine 5.8 H Creat Clearance w eGFR 7.39 POC Glucometer 156 Random Glucose 146 H Calcium 9.9 Total Bilirubin 0.4 D AST 22 ALT 30 Alkaline Phosphatase 140 H Total Protein 7.1 Albumin 2.7 L PTH Intact PTH Intact Intraop 0 m 10/26/17 12:01 WBC RBC Hgb Hct MCV MCH MCHC RDW Plt Count MPV Neutrophils % Lymphocytes % Monocytes % Eosinophils % Basophils % Sodium Potassium Chloride Carbon Dioxide Anion Gap BUN Creatinine Creat Clearance w eGFR POC Glucometer 179 Random Glucose Calcium Total Bilirubin AST ALT Alkaline Phosphatase Total Protein Albumin PTH Intact PTH Intact Intraop 0 m Physical Exam: NAD, mor, 3/6 SM at base and LLSB Lungs: decreased breath sounds b/l bases Abd: soft, Nt, ND , NL BS . GT in place Ext: 1 + edema sacral wound not examined today A/P Unfortunate 62 y/o lady with h/o TD , ESRD, VC syndrome , iron def anemia , sacral decub, Dm II , and Ht and other medical problems who presented from wound care with unusual facial movements . 1- Sacral decub ulcer. - unable to obtain MRI yet, will d/w Nephrology getting CT with contrast before HD tomorrow 2- C diff infection : start IV flagyl q 8 hr 3- ESRD: cont HD per renal off [facility] 4- TD: chronic. monitor off her antiphsycotics 5- h/o seizure , cont keppra 6- SVc syndrome : cont eliquis 7- Diet : Nepro 6pm -7 am. dysphagia diet during day , change fluids to thickened as sh ecoughs with thins Visit type - Emergency Visit Emergency Visit: Yes ED Registration Date: 10/17/17 Care time: The patient presented to the Emergency Department on the above date and was hospitalized for further evaluation of their emergent condition. - New Patient This patient is new to me today: No - Critical Care Critical Care patient: No
[2017-10-26] MEDS: metroNIDAZOLE 250 MG TABLET PO SCH ×2 (16:07→22:12)
--- NOTE | 2017-10-26 19:34 | PN ---
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 esrd s/p interrupted HD yesterday due to hypotension today she denies any sob Current Medications Acetaminophen (Tylenol -) 650 mg PO Q4H PRN PRN Reason: FEVER Last Admin: 10/26/17 11:21 Dose: 650 mg Amino Acids (Prosource No Carb Liquid Pkt) 30 ml PO BID@0800,1730 [facility] Last Admin: 10/26/17 18:47 Dose: 30 ml Apixaban (Eliquis -) 5 mg PO BID [facility] Last Admin: 10/26/17 11:22 Dose: 5 mg Artificial Tears (Artificial Tears) 1 drop OD BID [facility] Last Admin: 10/26/17 11:23 Dose: 1 drop Insulin Aspart (Novolog Vial Sliding Scale -) 1 vial SQ TIDAC [facility] PRN Reason: Protocol Last Admin: 10/26/17 17:48 Dose: Not Given Lactobacillus Acidophilus (Bacid -) 1 tab GT BID [facility] Last Admin: 10/26/17 11:22 Dose: 1 tab Levetiracetam (Keppra Oral Solution -) 500 mg GT BID [facility] Last Admin: 10/26/17 11:23 Dose: 500 mg Metronidazole (Flagyl -) 500 mg PO TID [facility] Last Admin: 10/26/17 16:07 Dose: 500 mg Multivitamins (Total B With C -) 1 each PO DAILY [facility] Last Admin: 10/26/17 11:22 Dose: 1 each Nystatin (Nystop Powder -) 1 applic TP DAILY [facility] Last Admin: 10/26/17 11:23 Dose: 1 applic Last Vital Signs Temp Pulse Resp BP Pulse Ox 98.8 F 96 H 20 115/66 98 10/26/17 18:16 10/26/17 18:16 10/26/17 18:16 10/26/17 18:16 10/26/17 09:00 lungs clear heart reg abd soft ext no edema CBC, BMP 10/26/17 06:00 10/26/17 06:00 IMP-esrd euvolemic sacral decub- going for ct scan to r/o osteo Plan- HD tomorrow Friday after CT scan
[2017-10-27] MEDS: metroNIDAZOLE 250 MG TABLET PO SCH ×3 (06:37→21:57)
[2017-10-27] MEDS: INSULIN SLIDING SCALE (NOVOLOG) 1 VIAL SQ SCH ×3 (06:41→16:21)
[2017-10-27] MEDS: AMINO ACIDS/PROTEIN HYDROLYS 30 ML LIQUID.PKT PO SCH ×2 (08:17→16:50)
[2017-10-27] MEDS ORDERED: PT OWN MED DRAWER 7, Y5N ONE (09:07)
[2017-10-27] MEDS: VITAMIN B COMPLEX W/C COMBO TABLET (FP) PO SCH (09:08)
[2017-10-27] MEDS: LACTOBACILLUS ACIDOPHILUS 1 EACH TAB (FP) GT SCH ×2 (09:08→21:57)
[2017-10-27] MEDS: levETIRAcetam 500 MG/5 ML ORAL SOLUTION (UNIT-DOSE CUPS) GT SCH ×2 (09:09→21:58)
[2017-10-27] MEDS: APIXABAN 5 MG TABLET PO SCH ×2 (09:09→21:57)
[2017-10-27] MEDS: NYSTATIN POWDER 100,000 UNITS/GM - 15 GM TOPICAL POWDER TP SCH (09:09)
[2017-10-27] MEDS: ARTIFICIAL TEARS (POLYVINYL ALCOHOL 1.4%) OPTH DROPS OD SCH ×2 (09:09→21:58)
[2017-10-27] MEDS ORDERED: INSULIN (NOVOLOG) ASPART 100 UNITS/ML 10ML VIAL ONE (10:29)
--- NOTE | 2017-10-27 11:43 | PN ---
Progress Note (short form) - Note Progress Note: Spoke to patient's son Иван over the phone to discuss imaging. Discussed reasons why MRI is unable to be done at this time (unknown date of stent placement/unknown types of stents. Discussed the option of CT scan with contrast. Discussed that patient will get the scan with contrast and will get dialyzed after her scan. Patient understood the plan and verbally agreed to follow through with the CT scan. -Claudy Garcia D.O., PGY1
--- NOTE | 2017-10-27 12:19 | PN ---
Progress Note, [employer] - Note Progress Note: Selected Entries 10/25/17 10/25/17 10/26/17 10:44 18:26 10:31 Breakfast 50% 50% Lunch Supper 25% 10/26/17 10/26/17 10/27/17 14:23 18:16 09:45 Breakfast 75% Lunch 50% Supper 50% Laboratory Tests 10/25/17 10/26/17 07:55 06:00 WBC 22.0 H D 10.6 H D Pt doing quite well with PO intake. Tolerated thin liquids on Friday. Reported to be coughing on thin liquid over weekend, downgraded to nectar thick liquid. Cough response could have been due to pt distractibility and delayed swallow vs feeding technique and use of compensatory strategies 9eg needs to be fully upright, chin flexed, single sips, no continuous deinking, avoid straws). [place] thick liquid is safer and sufficient PO hydration is not an issue presently as pt receives GT feedings nocturnally. As pt improves and GT feedings are less necessary, consider repeated mbs as out pt, to wean from GT and to upgrade diet safely.
--- NOTE | 2017-10-27 14:52 | PN ---
Progress Note, Physician History of Present Illness: Pt seen and examined at bedside. She is awake and appears comfortable. She just went for her cat scan. She is due for HD today. - Current Medication List Current Medications: Active Medications Acetaminophen (Tylenol -) 650 mg PO Q4H PRN PRN Reason: FEVER Last Admin: 10/26/17 11:21 Dose: 650 mg Amino Acids (Prosource No Carb Liquid Pkt) 30 ml PO BID@0800,1730 [facility] Last Admin: 10/27/17 08:17 Dose: 30 ml Apixaban (Eliquis -) 5 mg PO BID [facility] Last Admin: 10/27/17 09:09 Dose: 5 mg Artificial Tears (Artificial Tears) 1 drop OD BID [facility] Last Admin: 10/27/17 09:09 Dose: 1 drop Insulin Aspart (Novolog Vial Sliding Scale -) 1 vial SQ TIDAC [facility] PRN Reason: Protocol Last Admin: 10/27/17 11:18 Dose: 4 units Lactobacillus Acidophilus (Bacid -) 1 tab GT BID [facility] Last Admin: 10/27/17 09:08 Dose: 1 tab Levetiracetam (Keppra Oral Solution -) 500 mg GT BID [facility] Last Admin: 10/27/17 09:09 Dose: 500 mg Metronidazole (Flagyl -) 500 mg PO TID [facility] Last Admin: 10/27/17 14:12 Dose: 500 mg Multivitamins (Total B With C -) 1 each PO DAILY [facility] Last Admin: 10/27/17 09:08 Dose: 1 each Nystatin (Nystop Powder -) 1 applic TP DAILY [facility] Last Admin: 10/27/17 09:09 Dose: 1 applic - Objective Vital Signs: Vital Signs Temperature 97.6 F 10/27/17 14:48 Pulse Rate 87 10/27/17 14:48 Respiratory Rate 20 10/27/17 14:48 Blood Pressure 108/70 10/27/17 14:48 O2 Sat by Pulse Oximetry (%) 98 10/27/17 09:00 Constitutional: Yes: Calm Eyes: Yes: Conjunctiva Clear HENT: Yes: Atraumatic Cardiovascular: Yes: S1, S2 Respiratory: Yes: CTA Bilaterally Gastrointestinal: Yes: Soft, Abdomen, Obese, Other (peg) Genitourinary: Yes: Incontinence Musculoskeletal: Yes: Muscle Weakness Edema: Yes Edema: LLE: Trace, RLE: Trace Neurological: Yes: Pre-Existing Deficit Labs: CBC, BMP 10/26/17 06:00 10/26/17 06:00 INR, PTT INR 1.42 (0.82-1.09) H 10/18/17 06:10 Problem List - Problems (1) Decubital ulcer Code(s): L89.90 - PRESSURE ULCER OF UNSPECIFIED SITE, UNSPECIFIED STAGE (2) ESRD (end stage renal disease) Code(s): N18.6 - END STAGE RENAL DISEASE (3) Sepsis Code(s): A41.9 - SEPSIS, UNSPECIFIED ORGANISM Assessment/Plan Current Medications Generic Name Dose Route Start Last Admin Trade Name Freq PRN Reason Stop Dose Admin Acetaminophen 650 mg 10/17/17 19:22 10/26/17 11:21 Tylenol - PO 650 mg Q4H PRN Administration FEVER Amino Acids 30 ml 10/24/17 17:30 10/27/17 08:17 Prosource No Carb Liquid Pkt PO 30 ml BID@0800,1730 ROSELYN Administration Apixaban 5 mg 10/18/17 10:00 10/27/17 09:09 Eliquis - PO 5 mg BID ROSELYN Administration Artificial Tears 1 drop 10/18/17 10:00 10/27/17 09:09 Artificial Tears OD 1 drop BID ROSELYN Administration Insulin Aspart 1 vial 10/18/17 07:00 10/27/17 11:18 Novolog Vial Sliding Scale - SQ 4 units TIDAC ROSELYN Administration Protocol Lactobacillus Acidophilus 1 tab 10/18/17 10:00 10/27/17 09:08 Bacid - GT 1 tab BID ROSELYN Administration Levetiracetam 500 mg 10/17/17 23:00 10/27/17 09:09 Keppra Oral Solution - GT 500 mg BID ROSELYN Administration Metronidazole 500 mg 10/26/17 15:00 10/27/17 14:12 Flagyl - PO 500 mg TID ROSELYN Administration Multivitamins 1 each 10/18/17 10:00 10/27/17 09:08 Total B With C - PO 1 each DAILY ROSELYN Administration Nystatin 1 applic 10/18/17 10:00 10/27/17 09:09 Nystop Powder - TP 1 applic DAILY ROSELYN Administration Laboratory Tests 10/25/17 10/25/17 10/26/17 07:55 07:55 06:00 Calcium 10.4 H 10.5 H 9.9 Impression 1. ESRD 2. anemia 3. change in mental status 4. epilepsy 5. htn 6. dm 7. gerd 8. obesity 9. hypercalcemia Plan - pt going for HD today - calcium improving - follow pth - [facility] on hold - follow up ct results - epogen for anemia - monitor hg - will follow Dr Medellin
--- NOTE | 2017-10-27 15:57 | PN ---
Physical Exam: SUBJECTIVE: Patient seen and examined at bedside. She is awake and alert, only complains of pain on her sacrum. Denies fevers, chills, nausea, vomiting, diarrhea. OBJECTIVE: Vital Signs Period Temp Pulse Resp BP Sys/Crandall Pulse Ox Last 24 Hr 97.6 F-98.8 F 87-96 20-20 108-118/55-70 98-99 GENERAL: The patient is awake, alert, and fully oriented, in no acute distress. HEAD: Normal with no signs of trauma. LUNGS: Breath sounds equal, clear to auscultation bilaterally, no wheezes, no crackles, no accessory muscle use. HEART: 3/6 holosystolic murmur, S1, S2 without murmur, rub or gallop. ABDOMEN: Obese, Soft, nontender, nondistended, normoactive bowel sounds, no guarding, no rebound, no hepatosplenomegaly, no masses. EXTREMITIES: 2+ pulses, warm, well-perfused, no edema. 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 large stage 4 Sacral decubitus - wound vac in place NEUROLOGICAL: Cranial nerves II through XII grossly intact. Lip smacking observed PSYCH: Normal mood, normal affect. SKIN: Warm, dry, normal turgor, no rashes or lesions noted Laboratory Results - last 24 hr 10/26/17 10/27/17 10/27/17 17:42 06:40 11:18 POC Glucometer 125 145 226 Active Medications Generic Name Dose Route Start Last Admin Trade Name Freq PRN Reason Stop Dose Admin Acetaminophen 650 mg 10/17/17 19:22 10/26/17 11:21 Tylenol - PO 650 mg Q4H PRN Administration FEVER Amino Acids 30 ml 10/24/17 17:30 10/27/17 08:17 Prosource No Carb Liquid Pkt PO 30 ml BID@0800,1730 ROSELYN Administration Apixaban 5 mg 10/18/17 10:00 10/27/17 09:09 Eliquis - PO 5 mg BID ROSELYN Administration Artificial Tears 1 drop 10/18/17 10:00 10/27/17 09:09 Artificial Tears OD 1 drop BID ROSELYN Administration Insulin Aspart 1 vial 10/18/17 07:00 10/27/17 11:18 Novolog Vial Sliding Scale - SQ 4 units TIDAC ROSELYN Administration Protocol Lactobacillus Acidophilus 1 tab 10/18/17 10:00 10/27/17 09:08 Bacid - GT 1 tab BID ROSELYN Administration Levetiracetam 500 mg 10/17/17 23:00 10/27/17 09:09 Keppra Oral Solution - GT 500 mg BID ROSELYN Administration Metronidazole 500 mg 10/26/17 15:00 10/27/17 14:12 Flagyl - PO 500 mg TID ROSELYN Administration Multivitamins 1 each 10/18/17 10:00 10/27/17 09:08 Total B With C - PO 1 each DAILY ROSELYN Administration Nystatin 1 applic 10/18/17 10:00 10/27/17 09:09 Nystop Powder - TP 1 applic DAILY ROSELYN Administration ASSESSMENT/PLAN: 62 year old female with a hx of sacral decubitus, tardive diskinesia, ESRD on HD , HTN, SVC syndrome/clot, iron-deficiency anemia, Type 2 diabetes, GERD, and epilepsy is admitted to the hospital for sepsis 2/2 sacral decubitus #Sepsis 2/2 sacral ulcer: stable -no current abx -CT sacrum returned positive for suspected osteomyelitis, will likely need to be treated with halfway ABX -appreciate ID consultation -blood cultures negative -wound cultures grew multiple organisms -lactic acid normalized -wound vac in place - patient likely returning to [facility] once medically stable. -tylenol 650 PRN pain #Tardive Dyskinesia: stable, was due to antipsychotic use - stopped 6 months ago -appreciate neuro consultation #ESRD: stable, on HD -HD today -appreciate nephrology recommendations #Anemia: stable -transfuse as necessary if hgb < 7 #Seizure Disorder: stable -continue keppra 500 BID #SVC syndrome/clot: stable -continue eliquis 5mg BID #FEN -tube feed nepro, appreciate speech/swallow reccs (6pm-6am - 12 hours) -dysphagia puree -careful with repletion -no standing fluids #Prophylaxis -On eliquis #Disposition: -possible DC to SNF in AM pending MRI results Visit type - Emergency Visit Emergency Visit: No - New Patient This patient is new to me today: No - Critical Care Critical Care patient: No
--- NOTE | 2017-10-27 19:51 | PN ---
Teaching Attending Note Name of Resident: Claudy Garcia ATTENDING PHYSICIAN STATEMENT I saw and evaluated the patient. I reviewed the resident's note and discussed the case with the resident. I agree with the resident's findings and plan as documented. SUBJECTIVE: No fever or chills. has pain in sacrum OBJECTIVE: NAD, CV: 3/6 SM at base and LLSB Lungs: decreased breath sounds b/l bases Abd: soft, Nt, ND , NL BS . GT in place Ext: 1 + edema sacral wound not examined today A/P Unfortunate 62 y/o lady with h/o TD , ESRD, VC syndrome , iron def anemia , sacral decub, Dm II , and Ht and other medical problems who presented from wound care with unusual facial movements . 1- Sacral decub ulcer. - CT scan with evidence of OM . - will contact ID regarding choice of Abx in am 2- C diff infection : ( + Ag but - toxin but with diarrhea ) - cont flagyl q 8hr 3- ESRD: cont HD per renal off [facility] 4- TD: chronic. monitor off her antiphsycotics 5- h/o seizure , cont keppra 6- SVc syndrome : cont eliquis 7- Diet : Nepro 6pm -7 am. dysphagia diet during day , with nectar thick liquids HLOC . need PICC . then possible dc to rehab tomorrow
[2017-10-27] MEDS ORDERED: PICC LINE 8 ML FLUSH PROTOCOL IVPUSH PRN (20:00)
[2017-10-28] MEDS: metroNIDAZOLE 250 MG TABLET PO SCH ×3 (06:07→21:02)
[2017-10-28] MEDS: INSULIN SLIDING SCALE (NOVOLOG) 1 VIAL SQ SCH ×3 (06:08→18:59)
[2017-10-28 08:16] LABS: HEMATOCRIT 28.2 % (32.4-45.2); MCH 28.5 pg (25.7-33.7); MCHC 31.9 g/dl (32.0-36.0); MEAN CELL VOLUME 89.3 fl (80-96); MEAN PLT VOLUME 7.5 fl (7.5-11.1); PLATELET COUNT 577 K/MM3 (134-434); RBC 3.15 M/mm3 (3.60-5.2); RDW 18.1 % (11.6-15.6); WHITE BLOOD COUNT 9.2 K/mm3 (4.0-10.0)
[2017-10-28 08:48] LABS: ANION GAP 7 (8-16); BLOOD UREA NITROGEN 40 mg/dL (7-18); CALCIUM 9.6 mg/dL (8.5-10.1); CHLORIDE 100 mmol/L (98-107); CO2 31 mmol/L (21-32); CREATININE 4.6 mg/dL (0.55-1.02); GLUCOSE,RANDOM 143 mg/dL (74-106); POTASSIUM 4.2 mmol/L (3.5-5.1); SODIUM 138 mmol/L (136-145)
[2017-10-28] MEDS: AMINO ACIDS/PROTEIN HYDROLYS 30 ML LIQUID.PKT PO SCH ×2 (09:00→17:35)
[2017-10-28] MEDS ORDERED: PT OWN MED DRAWER 7, Y5N ONE (11:32)
[2017-10-28] MEDS: LACTOBACILLUS ACIDOPHILUS 1 EACH TAB (FP) GT SCH ×2 (11:35→21:02)
[2017-10-28] MEDS: VITAMIN B COMPLEX W/C COMBO TABLET (FP) PO SCH (11:35)
[2017-10-28] MEDS: NYSTATIN POWDER 100,000 UNITS/GM - 15 GM TOPICAL POWDER TP SCH (11:35)
[2017-10-28] MEDS: ARTIFICIAL TEARS (POLYVINYL ALCOHOL 1.4%) OPTH DROPS OD SCH ×2 (11:35→21:03)
[2017-10-28] MEDS: levETIRAcetam 500 MG/5 ML ORAL SOLUTION (UNIT-DOSE CUPS) GT SCH ×2 (11:35→21:02)
[2017-10-28] MEDS: APIXABAN 5 MG TABLET PO SCH ×2 (11:35→21:02)
--- NOTE | 2017-10-28 13:58 | PN ---
Progress Note (short form) - Note Progress Note: awake and alert feels well Vital Signs Period Temp Pulse Resp BP Sys/Crandall Pulse Ox Last 24 Hr 97.6 F-98.9 F 87-101 18-20 108-143/44-74 98 cor-rrr lungs clear abd soft,nt +GT ext no edema fistula in left arm vac in place- to be changed today CBC, BMP 10/28/17 07:45 10/28/17 07:45 Microbiology 10/25/17 12:30 Blood - Peripheral Venous Blood Culture - Preliminary NO GROWTH OBTAINED AFTER 72 HOURS, INCUBATION TO CONTINUE FOR 2 DAYS. 10/25/17 12:40 Blood - Peripheral Venous Blood Culture - Preliminary NO GROWTH OBTAINED AFTER 72 HOURS, INCUBATION TO CONTINUE FOR 2 DAYS. 10/26/17 08:43 Stool Clostridium difficile Antigen (SAUNDRA) - Final 10/26/17 08:43 Stool Clostridium difficile Toxin Assay - Final 10/17/17 14:39 Blood - Peripheral Venous Blood Culture - Final NO GROWTH AFTER 5 DAYS INCUBATION 10/17/17 13:25 Blood - Peripheral Venous Blood Culture - Final NO GROWTH AFTER 5 DAYS INCUBATION 10/18/17 03:30 Wound Gram Stain - Final 10/18/17 03:30 Wound Wound Culture - Final Escherichia Coli Morganella Morganii Strep Agalactiae Group B Beta Hem Streptococcus Group G Diphtheroid/Corynebacterium a/p ct scan with ?phlegmon-question of sacral osteo noted if there is no exposed bone , would defer bone biopsy at this time would treat with ancef at HD, 2/2/3 and po flagyl for 6 weeks will need good nutrition and wound care f/u have asked Dr Perez to review ct scan d/w with son at length at bedside esrd/hd
--- NOTE | 2017-10-28 13:59 | PN ---
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 NPO today. May want to continue nocturnal feedings for improved nutritional support/wound healing. Increase increase nutritional/protein by mouth at NH, and when wound is well healed, can wean from GT?.
--- NOTE | 2017-10-28 16:45 | PN ---
Progress Note, Physician History of Present Illness: Pt seen and examined at bedside. She appears comfortable. - Current Medication List Current Medications: Active Medications Acetaminophen (Tylenol -) 650 mg PO Q4H PRN PRN Reason: FEVER Last Admin: 10/26/17 11:21 Dose: 650 mg Amino Acids (Prosource No Carb Liquid Pkt) 30 ml PO BID@0800,1730 [facility] Last Admin: 10/28/17 09:00 Dose: Not Given Apixaban (Eliquis -) 5 mg PO BID [facility] Last Admin: 10/28/17 11:35 Dose: 5 mg Artificial Tears (Artificial Tears) 1 drop OD BID [facility] Last Admin: 10/28/17 11:35 Dose: Not Given IV Flush (Picc Line Flush) 8 ml IVPUSH PRN PRN PRN Reason: Protocol Insulin Aspart (Novolog Vial Sliding Scale -) 1 vial SQ TIDAC [facility] PRN Reason: Protocol Last Admin: 10/28/17 12:26 Dose: Not Given Lactobacillus Acidophilus (Bacid -) 1 tab GT BID [facility] Last Admin: 10/28/17 11:35 Dose: 1 tab Levetiracetam (Keppra Oral Solution -) 500 mg GT BID [facility] Last Admin: 10/28/17 11:35 Dose: 500 mg Metronidazole (Flagyl -) 500 mg PO TID [facility] Last Admin: 10/28/17 16:02 Dose: 500 mg Multivitamins (Total B With C -) 1 each PO DAILY [facility] Last Admin: 10/28/17 11:35 Dose: 1 each Nystatin (Nystop Powder -) 1 applic TP DAILY [facility] Last Admin: 10/28/17 11:35 Dose: Not Given - Objective Vital Signs: Vital Signs Temperature 97.7 F 10/28/17 14:36 Pulse Rate 94 H 10/28/17 14:36 Respiratory Rate 20 10/28/17 14:36 Blood Pressure 113/50 10/28/17 14:36 O2 Sat by Pulse Oximetry (%) 98 10/27/17 21:00 Constitutional: Yes: Calm Eyes: Yes: Conjunctiva Clear HENT: Yes: Atraumatic Cardiovascular: Yes: S1, S2 Respiratory: Yes: CTA Bilaterally Gastrointestinal: Yes: Abdomen, Obese, Other (peg) Genitourinary: Yes: Incontinence Musculoskeletal: Yes: Muscle Weakness Edema: No Neurological: Yes: Pre-Existing Deficit Labs: CBC, BMP 10/28/17 07:45 10/28/17 07:45 INR, PTT INR 1.42 (0.82-1.09) H 10/18/17 06:10 Problem List - Problems (1) Decubital ulcer Code(s): L89.90 - PRESSURE ULCER OF UNSPECIFIED SITE, UNSPECIFIED STAGE (2) ESRD (end stage renal disease) Code(s): N18.6 - END STAGE RENAL DISEASE (3) Sepsis Code(s): A41.9 - SEPSIS, UNSPECIFIED ORGANISM Assessment/Plan Current Medications Generic Name Dose Route Start Last Admin Trade Name Freq PRN Reason Stop Dose Admin Acetaminophen 650 mg 10/17/17 19:22 10/26/17 11:21 Tylenol - PO 650 mg Q4H PRN Administration FEVER Amino Acids 30 ml 10/24/17 17:30 10/28/17 09:00 Prosource No Carb Liquid Pkt PO Not Given BID@0800,1730 [facility] Apixaban 5 mg 10/18/17 10:00 10/28/17 11:35 Eliquis - PO 5 mg BID [facility] Administration Artificial Tears 1 drop 10/18/17 10:00 10/28/17 11:35 Artificial Tears OD Not Given BID [facility] IV Flush 8 ml 10/27/17 20:00 Picc Line Flush IVPUSH PRN PRN Protocol Insulin Aspart 1 vial 10/18/17 07:00 10/28/17 12:26 Novolog Vial Sliding Scale - SQ Not Given TIDAC [facility] Protocol Lactobacillus Acidophilus 1 tab 10/18/17 10:00 10/28/17 11:35 Bacid - GT 1 tab BID [facility] Administration Levetiracetam 500 mg 10/17/17 23:00 10/28/17 11:35 Keppra Oral Solution - GT 500 mg BID [facility] Administration Metronidazole 500 mg 10/26/17 15:00 10/28/17 16:02 Flagyl - PO 500 mg TID [facility] Administration Multivitamins 1 each 10/18/17 10:00 10/28/17 11:35 Total B With C - PO 1 each DAILY [facility] Administration Nystatin 1 applic 10/18/17 10:00 10/28/17 11:35 Nystop Powder - TP Not Given DAILY [facility] Laboratory Tests 10/28/17 07:45 Calcium 9.6 Impression 1. ESRD 2. anemia 3. change in mental status 4. epilepsy 5. htn 6. dm 7. gerd 8. obesity 9. hypercalcemia Plan - HD in am - follow pth - abx per ID - wound care to ulcers - epogen for anemia - monitor hg - will follow Dr Medellin
[2017-10-28] MEDS: ACETAMINOPHEN 325 MG TABLET (FP) PO PRN (17:35)
--- NOTE | 2017-10-28 17:44 | PN ---
Physical Exam: SUBJECTIVE: Patient seen and examined at bedside. No acute changes from yesterday. Pt got HD yesterday and is scheduled for tomorrow. OBJECTIVE: Vital Signs Period Temp Pulse Resp BP Sys/Crandall Pulse Ox Last 24 Hr 97.7 F-98.9 F 89-101 18-20 109-143/44-74 98 GENERAL: The patient is awake, alert, and fully oriented, in no acute distress. HEAD: Normal with no signs of trauma. LUNGS: Breath sounds equal, clear to auscultation bilaterally, no wheezes, no crackles, no accessory muscle use. HEART: 3/6 holosystolic murmur, S1, S2 without murmur, rub or gallop. ABDOMEN: Obese, Soft, nontender, nondistended, normoactive bowel sounds, no guarding, no rebound, no hepatosplenomegaly, no masses. EXTREMITIES: 2+ pulses, warm, well-perfused, no edema. Surgical scars noted on R arm payable representative of previous graft/fistula. large stage 4 Sacral decubitus - wound vac in place NEUROLOGICAL: Cranial nerves II through XII grossly intact. Lip smacking observed PSYCH: Normal mood, normal affect. SKIN: Warm, dry, normal turgor, no rashes or lesions noted Laboratory Results - last 24 hr 10/27/17 10/28/17 10/28/17 21:43 06:06 07:45 WBC 9.2 RBC 3.15 L Hgb 9.0 L Hct 28.2 L MCV 89.3 MCH 28.5 MCHC 31.9 L RDW 18.1 H Plt Count 577 H MPV 7.5 Sodium Potassium Chloride Carbon Dioxide Anion Gap BUN Creatinine POC Glucometer 104 138 Random Glucose Calcium 10/28/17 10/28/17 07:45 11:55 WBC RBC Hgb Hct MCV MCH MCHC RDW Plt Count MPV Sodium 138 Potassium 4.2 Chloride 100 Carbon Dioxide 31 Anion Gap 7 L BUN 40 H Creatinine 4.6 H POC Glucometer 143 Random Glucose 143 H Calcium 9.6 Active Medications Generic Name Dose Route Start Last Admin Trade Name Freq PRN Reason Stop Dose Admin Acetaminophen 650 mg 10/17/17 19:22 10/28/17 17:35 Tylenol - PO 650 mg Q4H PRN Administration FEVER Amino Acids 30 ml 10/24/17 17:30 10/28/17 17:35 Prosource No Carb Liquid Pkt PO 30 ml BID@0800,1730 [facility] Administration Apixaban 5 mg 10/18/17 10:00 10/28/17 11:35 Eliquis - PO 5 mg BID [facility] Administration Artificial Tears 1 drop 10/18/17 10:00 10/28/17 11:35 Artificial Tears OD Not Given BID [facility] Epoetin Alan 10,000 unit 10/29/17 16:45 Epogen - IVPUSH 10/29/17 16:46 ONCE ONE IV Flush 8 ml 10/27/17 20:00 Picc Line Flush IVPUSH PRN PRN Protocol Insulin Aspart 1 vial 10/18/17 07:00 10/28/17 12:26 Novolog Vial Sliding Scale - SQ Not Given TIDAC [facility] Protocol Lactobacillus Acidophilus 1 tab 10/18/17 10:00 10/28/17 11:35 Bacid - GT 1 tab BID [facility] Administration Levetiracetam 500 mg 10/17/17 23:00 10/28/17 11:35 Keppra Oral Solution - GT 500 mg BID [facility] Administration Metronidazole 500 mg 10/26/17 15:00 10/28/17 16:02 Flagyl - PO 500 mg TID [facility] Administration Multivitamins 1 each 10/18/17 10:00 10/28/17 11:35 Total B With C - PO 1 each DAILY [facility] Administration Nystatin 1 applic 10/18/17 10:00 10/28/17 11:35 Nystop Powder - TP Not Given DAILY [facility] ASSESSMENT/PLAN: 62 year old female with a hx of sacral decubitus, tardive diskinesia, ESRD on HD , HTN, SVC syndrome/clot, iron-deficiency anemia, Type 2 diabetes, GERD, and epilepsy is admitted to the hospital for sepsis 2/2 sacral decubitus #Sepsis 2/2 sacral ulcer: stable -not currently on Abx for osteomyelitis -consult ID appreciated -will want to get Dr. 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 -tylenol 650 PRN pain #C. Diff Colitis: pt was positive for C diff -continue flagyl 500 PO TID #Tardive Dyskinesia: stable, was due to antipsychotic use - stopped 6 months ago -appreciate neuro consultation #ESRD: stable, on HD -HD tomorrow -appreciate nephrology recommendations #Anemia: stable -transfuse as necessary if hgb < 7 #Seizure Disorder: stable -continue keppra 500 BID #SVC syndrome/clot: stable -continue eliquis 5mg BID #FEN -tube feed nepro, appreciate speech/swallow reccs (6pm-6am - 12 hours) -dysphagia puree -careful with repletion -no standing fluids #Prophylaxis -On eliquis #Disposition: -possible DC to SNF Visit type - Emergency Visit Emergency Visit: No - New Patient This patient is new to me today: No - Critical Care Critical Care patient: No
--- NOTE | 2017-10-28 18:37 | PN ---
Progress Note (short form) - Note Progress Note: VAscular Surgery CT scan reviewed. VAC in place. White foam had been placed on sacrum due to exposed bone. CT scan brings up a question of phegmon around coccyx, that is not a collection that is drainable. ID note reviewed - will need flagyl for 6 weeks. Cont vac, offload area. Pt needs good nutrition. WBC is 9.2. Will follow. Would not do bone biopsy, as that would create a wound involving bone. CT shows osteo as it is. Will follow Aleaxnder mahmood DO
--- NOTE | 2017-10-28 18:41 | PN ---
Teaching Attending Note Name of Resident: Claudy Garcia ATTENDING PHYSICIAN STATEMENT I saw and evaluated the patient. I reviewed the resident's note and discussed the case with the resident. I agree with the resident's findings and plan as documented. SUBJECTIVE: no fever or chills. has abd pain and sacral pain OBJECTIVE: NAD, CV: 3/6 SM at base and LLSB Lungs: decreased breath sounds b/l bases Abd: soft, Nt, ND , NL BS . GT in place Ext: 1 + edema A/P Unfortunate 62 y/o lady with h/o TD , ESRD, VC syndrome , iron def anemia , sacral decub, Dm II , and Ht and other medical problems who presented from wound care with unusual facial movements . 1- Sacral decub ulcer with OM - appreciate Dr. mahmood input regarding possible Bone bx - if no bone bx indicated , then ancef + po flagyl treatment 2- C diff infection : ( + Ag but - toxin but with diarrhea ) - cont flagyl q 8hr 3- ESRD: cont HD per renal off [facility] 4- TD: chronic. monitor off her antiphsycotics 5- h/o seizure , cont keppra 6- SVc syndrome: cont eliquis 7- Diet : Nepro 6pm -7 am. dysphagia diet during day , with nectar thick liquids dipo : possible tomorrow if no Bone Bx to be performed
[2017-10-29] MEDS: metroNIDAZOLE 250 MG TABLET PO SCH ×2 (05:43→13:45)
[2017-10-29] MEDS: INSULIN SLIDING SCALE (NOVOLOG) 1 VIAL SQ SCH ×3 (06:41→16:39)
[2017-10-29] MEDS ORDERED: INSULIN (NOVOLOG) ASPART 100 UNITS/ML 10ML VIAL ONE ×2 (06:44→16:28)
[2017-10-29 07:46] LABS: HEMATOCRIT 27.9 % (32.4-45.2); HEMOGLOBIN 8.9 GM/dL (10.7-15.3); MCH 28.5 pg (25.7-33.7); MCHC 31.8 g/dl (32.0-36.0); MEAN CELL VOLUME 89.9 fl (80-96); MEAN PLT VOLUME 7.4 fl (7.5-11.1); PLATELET COUNT 574 K/MM3 (134-434); RBC 3.11 M/mm3 (3.60-5.2); RDW 18.2 % (11.6-15.6); WHITE BLOOD COUNT 9.2 K/mm3 (4.0-10.0)
[2017-10-29 07:58] LABS: ANION GAP 10 (8-16); BLOOD UREA NITROGEN 49 mg/dL (7-18); CHLORIDE 99 mmol/L (98-107); CO2 30 mmol/L (21-32); GLUCOSE,RANDOM 223 mg/dL (74-106); POTASSIUM 3.4 mmol/L (3.5-5.1); SODIUM 139 mmol/L (136-145)
[2017-10-29 08:02] LABS: CALCIUM 9.2 mg/dL (8.5-10.1); CREATININE 5.8 mg/dL (0.55-1.02)
[2017-10-29 08:26] LABS: MAGNESIUM 2.1 mg/dL (1.8-2.4); PHOSPHOROUS 3.5 mg/dL (2.5-4.9)
[2017-10-29] MEDS ORDERED: EPOETIN ALFA 10,000 UNIT/1 ML VIAL IVPUSH ONE (09:00)
[2017-10-29] MEDS ORDERED: PT OWN MED DRAWER 7, Y5N ONE (10:15)
[2017-10-29] MEDS: levETIRAcetam 500 MG/5 ML ORAL SOLUTION (UNIT-DOSE CUPS) GT SCH (10:33)
[2017-10-29] MEDS: LACTOBACILLUS ACIDOPHILUS 1 EACH TAB (FP) GT SCH (10:34)
[2017-10-29] MEDS: NYSTATIN POWDER 100,000 UNITS/GM - 15 GM TOPICAL POWDER TP SCH (10:34)
[2017-10-29] MEDS: VITAMIN B COMPLEX W/C COMBO TABLET (FP) PO SCH (10:34)
[2017-10-29] MEDS: ARTIFICIAL TEARS (POLYVINYL ALCOHOL 1.4%) OPTH DROPS OD SCH (10:34)
[2017-10-29] MEDS: AMINO ACIDS/PROTEIN HYDROLYS 30 ML LIQUID.PKT PO SCH ×2 (10:34→16:34)
[2017-10-29] MEDS: APIXABAN 5 MG TABLET PO SCH (10:34)
--- NOTE | 2017-10-29 13:19 | PN ---
Progress Note, Physician History of Present Illness: Pt seen and examined at bedside. She tolerated HD today. Mental status is at baseline. - Current Medication List Current Medications: Active Medications Acetaminophen (Tylenol -) 650 mg PO Q4H PRN PRN Reason: FEVER Last Admin: 10/28/17 17:35 Dose: 650 mg Amino Acids (Prosource No Carb Liquid Pkt) 30 ml PO BID@0800,1730 [facility] Last Admin: 10/29/17 10:34 Dose: 30 ml Apixaban (Eliquis -) 5 mg PO BID [facility] Last Admin: 10/29/17 10:34 Dose: 5 mg Artificial Tears (Artificial Tears) 1 drop OD BID [facility] Last Admin: 10/29/17 10:34 Dose: 1 drop IV Flush (Picc Line Flush) 8 ml IVPUSH PRN PRN PRN Reason: Protocol Insulin Aspart (Novolog Vial Sliding Scale -) 1 vial SQ TIDAC [facility] PRN Reason: Protocol Last Admin: 10/29/17 11:06 Dose: Not Given Lactobacillus Acidophilus (Bacid -) 1 tab GT BID [facility] Last Admin: 10/29/17 10:34 Dose: 1 tab Levetiracetam (Keppra Oral Solution -) 500 mg GT BID [facility] Last Admin: 10/29/17 10:33 Dose: 500 mg Metronidazole (Flagyl -) 500 mg PO TID [facility] Last Admin: 10/29/17 05:43 Dose: 500 mg Multivitamins (Total B With C -) 1 each PO DAILY [facility] Last Admin: 10/29/17 10:34 Dose: 1 each Nystatin (Nystop Powder -) 1 applic TP DAILY [facility] Last Admin: 10/29/17 10:34 Dose: 1 applic - Objective Vital Signs: Vital Signs Temperature 97.7 F 10/29/17 11:00 Pulse Rate 85 10/29/17 11:00 Respiratory Rate 20 10/29/17 11:00 Blood Pressure 112/48 10/29/17 11:00 O2 Sat by Pulse Oximetry (%) 96 10/29/17 09:00 Constitutional: Yes: Calm Eyes: Yes: Conjunctiva Clear HENT: Yes: Atraumatic Neck: Yes: Supple Cardiovascular: Yes: S1, S2 Respiratory: Yes: CTA Bilaterally Gastrointestinal: Yes: Soft, Other (peg) Genitourinary: Yes: Incontinence Musculoskeletal: Yes: Muscle Weakness Edema: LLE: Trace, RLE: Trace Neurological: Yes: Pre-Existing Deficit Labs: CBC, BMP 10/29/17 06:45 10/29/17 06:45 INR, PTT INR 1.42 (0.82-1.09) H 10/18/17 06:10 Problem List - Problems (1) Decubital ulcer Code(s): L89.90 - PRESSURE ULCER OF UNSPECIFIED SITE, UNSPECIFIED STAGE (2) ESRD (end stage renal disease) Code(s): N18.6 - END STAGE RENAL DISEASE (3) Sepsis Code(s): A41.9 - SEPSIS, UNSPECIFIED ORGANISM Assessment/Plan Current Medications Generic Name Dose Route Start Last Admin Trade Name Freq PRN Reason Stop Dose Admin Acetaminophen 650 mg 10/17/17 19:22 10/28/17 17:35 Tylenol - PO 650 mg Q4H PRN Administration FEVER Amino Acids 30 ml 10/24/17 17:30 10/29/17 10:34 Prosource No Carb Liquid Pkt PO 30 ml BID@0800,1730 [facility] Administration Apixaban 5 mg 10/18/17 10:00 10/29/17 10:34 Eliquis - PO 5 mg BID [facility] Administration Artificial Tears 1 drop 10/18/17 10:00 10/29/17 10:34 Artificial Tears OD 1 drop BID [facility] Administration IV Flush 8 ml 10/27/17 20:00 Picc Line Flush IVPUSH PRN PRN Protocol Insulin Aspart 1 vial 10/18/17 07:00 10/29/17 11:06 Novolog Vial Sliding Scale - SQ Not Given TIDAC [facility] Protocol Lactobacillus Acidophilus 1 tab 10/18/17 10:00 10/29/17 10:34 Bacid - GT 1 tab BID [facility] Administration Levetiracetam 500 mg 10/17/17 23:00 10/29/17 10:33 Keppra Oral Solution - GT 500 mg BID [facility] Administration Metronidazole 500 mg 10/26/17 15:00 10/29/17 05:43 Flagyl - PO 500 mg TID [facility] Administration Multivitamins 1 each 10/18/17 10:00 10/29/17 10:34 Total B With C - PO 1 each DAILY [facility] Administration Nystatin 1 applic 10/18/17 10:00 10/29/17 10:34 Nystop Powder - TP 1 applic DAILY [facility] Administration Laboratory Tests 10/25/17 10/29/17 07:55 06:45 Calcium 9.2 PTH Intact 215 H Impression 1. ESRD 2. anemia 3. change in mental status 4. epilepsy 5. htn 6. dm 7. gerd 8. obesity 9. hypercalcemia Plan - pt tolerated HD today - calcium is improving - zemplar stopped - monitor pth as outpt - abx per ID - wound care to ulcers - epogen for anemia - monitor hg - will follow Dr Medellin
--- NOTE | 2017-10-29 15:40 | PN ---
Teaching Attending Note Name of Resident: Claudy Garcia ATTENDING PHYSICIAN STATEMENT I saw and evaluated the patient. I reviewed the resident's note and discussed the case with the resident. I agree with the resident's findings and plan as documented. SUBJECTIVE: OBJECTIVE: Vital Signs Temperature 97.7 F 10/29/17 11:00 Pulse Rate 85 10/29/17 11:00 Respiratory Rate 20 10/29/17 11:00 Blood Pressure 112/48 10/29/17 11:00 O2 Sat by Pulse Oximetry (%) 96 10/29/17 09:00 CBCD WBC 9.2 K/mm3 (4.0-10.0) 10/29/17 06:45 RBC 3.11 M/mm3 (3.60-5.2) L 10/29/17 06:45 Hgb 8.9 GM/dL (10.7-15.3) L 10/29/17 06:45 Hct 27.9 % (32.4-45.2) L 10/29/17 06:45 MCV 89.9 fl (80-96) 10/29/17 06:45 MCHC 31.8 g/dl (32.0-36.0) L 10/29/17 06:45 RDW 18.2 % (11.6-15.6) H 10/29/17 06:45 Plt Count 574 K/MM3 (134-434) H 10/29/17 06:45 MPV 7.4 fl (7.5-11.1) L 10/29/17 06:45 CMP Sodium 139 mmol/L (136-145) 10/29/17 06:45 Potassium 3.4 mmol/L (3.5-5.1) L 10/29/17 06:45 Chloride 99 mmol/L (98-107) 10/29/17 06:45 Carbon Dioxide 30 mmol/L (21-32) 10/29/17 06:45 Anion Gap 10 (8-16) 10/29/17 06:45 BUN 49 mg/dL (7-18) H 10/29/17 06:45 Creatinine 5.8 mg/dL (0.55-1.02) H 10/29/17 06:45 Creat Clearance w eGFR 7.39 (>60) 10/26/17 06:00 Random Glucose 223 mg/dL (74-106) H 10/29/17 06:45 Calcium 9.2 mg/dL (8.5-10.1) 10/29/17 06:45 Total Bilirubin 0.4 mg/dL (0.2-1.0) D 10/26/17 06:00 AST 22 U/L (15-37) 10/26/17 06:00 ALT 30 U/L (12-78) 10/26/17 06:00 Alkaline Phosphatase 140 U/L (45-117) H 10/26/17 06:00 Total Protein 7.1 g/dl (6.4-8.2) 10/26/17 06:00 Albumin 2.7 g/dl (3.4-5.0) L 10/26/17 06:00 CARDIAC ENZYMES Creatine Kinase 448 IU/L (26-192) H 10/17/17 14:39 Troponin I < 0.02 ng/ml (0.00-0.05) 10/17/17 14:39 Current Medications Generic Name Dose Route Start Last Admin Trade Name Freq PRN Reason Stop Dose Admin Acetaminophen 650 mg 10/17/17 19:22 10/28/17 17:35 Tylenol - PO 650 mg Q4H PRN Administration FEVER Amino Acids 30 ml 10/24/17 17:30 10/29/17 10:34 Prosource No Carb Liquid Pkt PO 30 ml BID@0800,1730 [facility] Administration Apixaban 5 mg 10/18/17 10:00 10/29/17 10:34 Eliquis - PO 5 mg BID [facility] Administration Artificial Tears 1 drop 10/18/17 10:00 10/29/17 10:34 Artificial Tears OD 1 drop BID [facility] Administration IV Flush 8 ml 10/27/17 20:00 Picc Line Flush IVPUSH PRN PRN Protocol Insulin Aspart 1 vial 10/18/17 07:00 10/29/17 11:06 Novolog Vial Sliding Scale - SQ Not Given TIDAC [facility] Protocol Lactobacillus Acidophilus 1 tab 10/18/17 10:00 10/29/17 10:34 Bacid - GT 1 tab BID [facility] Administration Levetiracetam 500 mg 10/17/17 23:00 10/29/17 10:33 Keppra Oral Solution - GT 500 mg BID [facility] Administration Metronidazole 500 mg 10/26/17 15:00 10/29/17 13:45 Flagyl - PO 500 mg TID [facility] Administration Multivitamins 1 each 10/18/17 10:00 10/29/17 10:34 Total B With C - PO 1 each DAILY [facility] Administration Nystatin 1 applic 10/18/17 10:00 10/29/17 10:34 Nystop Powder - TP 1 applic DAILY [facility] Administration Home Medications Medication Instructions Recorded Acetaminophen 650 mg GT Q6H PRN 10/17/17 Amlodipine Besylate [Norvasc -] 2.5 mg GT DAILY 10/17/17 Apixaban [Eliquis] 5 mg GT BID 10/17/17 Collagenase Clostridium Hist. 1 applic TP DAILY 10/17/17 [Santyl -] Insulin (LOG) Aspart [NovoLOG -] 0 units SQ BID 10/17/17 Insulin NPH Hum/Reg Insulin Hm 8 unit SQ DAILY 10/17/17 [Novolin 70-30 100 Unit/ml Vial] Ipratropium 0.02% Nebulizer 1 neb NEB Q4H 10/17/17 [Atrovent 0.02% Nebulizer -] Lactobacillus Acidophilus 1 each GT BID 10/17/17 [Acidophilus] Nystatin Powder [Nystop Powder -] 60 gm TP DAILY 10/17/17 Paricalcitol 2 mcg IV DAILY 10/17/17 Polyvinyl Alcohol [Artificial 15 ml OP BID 10/17/17 Tears] Sevelamer Carbonate 800 mg GT Q8H 10/17/17 Vitamin B Complex/Folic Acid 2,000 mcg GT DAILY 10/17/17 [B-Stress Capsules] levETIRAcetam [Keppra Oral 500 mg GT Q12H 10/17/17 Solution -] Cefazolin 2 gm/D5w [Ancef 2 gm 2 gm IV DAILY #12 ml 10/29/17 Premixed Ivpb -] Cefazolin 2 gm/D5w [Ancef 2 gm 3 gm IV DAILY #6 ml 10/29/17 Premixed Ivpb -] metroNIDAZOLE [Flagyl -] 500 mg PO TID 42 Days tablet 10/29/17 ASSESSMENT AND PLAN:
--- NOTE | 2017-10-29 16:02 | DS ---
Physical Exam: SUBJECTIVE: Patient seen and examined at bedside. No acute changes overnight. Vital signs stable today. Patient is s/p hemodialysis today. OBJECTIVE: Vital Signs Period Temp Pulse Resp BP Sys/Crandall Pulse Ox Last 24 Hr 97.5 F-98.8 F 81-97 18-20 93-126/44-76 96-98 PHYSICAL EXAM GENERAL: The patient is awake, alert, and fully oriented, in no acute distress. HEAD: Normal with no signs of trauma. LUNGS: Breath sounds equal, clear to auscultation bilaterally, no wheezes, no crackles, no accessory muscle use. HEART: 3/6 holosystolic murmur, S1, S2 without murmur, rub or gallop. ABDOMEN: Obese, Soft, nontender, nondistended, normoactive bowel sounds, no guarding, no rebound, no hepatosplenomegaly, no masses. EXTREMITIES: 2+ pulses, warm, well-perfused, no edema. 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 large stage 4 Sacral decubitus - wound vac in place NEUROLOGICAL: Cranial nerves II through XII grossly intact. Lip smacking observed PSYCH: Normal mood, normal affect. SKIN: Warm, dry, normal turgor, no rashes or lesions noted LABS Laboratory Results - last 24 hr 10/28/17 10/29/17 10/29/17 17:51 05:43 06:45 WBC RBC Hgb Hct MCV MCH MCHC RDW Plt Count MPV ESR 106 H Sodium Potassium Chloride Carbon Dioxide Anion Gap BUN Creatinine POC Glucometer 157 172 Random Glucose Calcium Phosphorus Magnesium 10/29/17 10/29/17 10/29/17 06:45 06:45 06:45 WBC 9.2 RBC 3.11 L Hgb 8.9 L Hct 27.9 L MCV 89.9 MCH 28.5 MCHC 31.8 L RDW 18.2 H Plt Count 574 H MPV 7.4 L ESR Sodium 139 Potassium 3.4 L Chloride 99 Carbon Dioxide 30 Anion Gap 10 BUN 49 H Creatinine 5.8 H POC Glucometer Random Glucose 223 H Calcium 9.2 Phosphorus 3.5 Magnesium 2.1 Microbiology 10/25/17 12:30 Blood - Peripheral Venous Blood Culture - Preliminary NO GROWTH OBTAINED AFTER 96 HOURS, INCUBATION TO CONTINUE FOR 1 DAYS. 10/25/17 12:40 Blood - Peripheral Venous Blood Culture - Preliminary NO GROWTH OBTAINED AFTER 96 HOURS, INCUBATION TO CONTINUE FOR 1 DAYS. 10/26/17 08:43 Stool Clostridium difficile Antigen (SAUNDRA) - Final - POSITIVE 10/26/17 08:43 Stool Clostridium difficile Toxin Assay - Final 10/17/17 14:39 Blood - Peripheral Venous Blood Culture - Final NO GROWTH AFTER 5 DAYS INCUBATION 10/17/17 13:25 Blood - Peripheral Venous Blood Culture - Final NO GROWTH AFTER 5 DAYS INCUBATION 10/18/17 03:30 Wound Gram Stain - Final 10/18/17 03:30 Wound Wound Culture - Final Escherichia Coli Morganella Morganii Strep Agalactiae Group B Beta Hem Streptococcus Group G Diphtheroid/Corynebacterium IMAGING CXR 10/17: Imaging reveals a weak inspiration with prominent mediastinum, chin artifact and a left axillary vascular stent. Correlation recommended. Are no prior studies for comparison. HEAD CT 10/17: Moderate atrophy. No gross evidence of a focal intracranial lesion or hemorrhage is seen. X RAY Sacrum 10/21: No gross bone destruction. However, correlation with MRI of the sacrum is a study of choice to rule out osteomyelitis in view of the clinical history. 5.6 cm heterogeneously calcified mass in the mid pelvis compatible with a calcified fibroid. CXR 10/25: Extensive bilateral vascular stent in. No acute chest pathology. CT Pelvis 10/27: 1. Deep sacral ulcer extending towards the bone. Ill-defined fluid within bilateral parasagittal soft tissues directly adjacent to the coccyx is presumably phlegmon. No evidence of abscess/ drainable collection at this time. 2. Focal area of osseous demineralization with indistinct cortex in the underlying posterior sacrum suggests osteomyelitis. 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 The son provided history that patient had increased neurologic facial movements and noted that the patient had an altered mental status unlike the day prior. Patient had a hx of schizophrenia and stopped her psych medications 6 months ago. Patient has a large sacral decubitus ulcer stage 4 and a large posterior R thigh ulcer. Patient had a mild leukocytosis and tachycardia. She was admitted for the treatment of sepsis secondary to stage 4 sacral ulcer. Patient was put on vanc/zosyn by the ED and continued by ID for a couple of days. Patient was later switched to ceftriaxone/flagyl for coverage by ID. Patient's wound cultures grew 5 organisms as listed above. Her clinical picture improved, her white count stabilized and she remained afebrile. Her antibiotics were subsequently stopped. We had surgery consulted, who thought it best to place a wound vac on the sacrum to facilitate the healing process. The wound vac dressing needed to be changed once every 3 days. The wound vac dressing would need to be changed every Friday, Friday, Friday whenever she [facility]. Patient's dietary needs were assessed. It was determined that she would get tube feeds from 6pm-6am at a rate of 45cc/hr with 30cc water flushes and supplemental dysphagia puree diet with nectar liquid consistency. Consider calorie count at the assisted to determine optimal nutrition. Patient's mental status improved back to baseline. She received an X ray of the sacrum to rule out osteomyelitis, which did not reveal any gross bone destruction. Patient was unable to get an MRI of the sacrum because it was unclear the type of stents she received in the past. Instead, a CT sacrum was performed with contrast (before dialysis) which documented bony destruction suggestive of osteomyelitis. ID recommended patient be put on 6 weeks of IV ancef to be given at a 2/2/3 dosing regimen directly after her dialysis treatments. Patient had an episode of diarrhea a couple of days before discharge. She tested positive for C diff antigen but negative for C diff toxin. ID recommended that in addition to ancef for osteomyelitis that we add oral flagyl for 6 weeks. Patient's clinical condition was discussed at length with family throughout hospitalization and before discharge. Patient was discharged on 10/29/17 with instructions to complete 6 weeks of IV ancef at 2/2/3 dosing after each dialysis session, oral flagyl for C diff, instructions for tube feedings as well as supplemental PO intake, and referrals for wound care, infectious diseases, nephrology, and primary care. Date of Discharge: 10/29/17 Minutes to complete discharge: 35 <Claudy Garcia - Last Filed: 10/29/17 16:29> Physical Exam: Patient is seen and examined , agree the plan. Plan back to Rehab. And to continue IV antibiotics for 6 weeks, discussed with ID. <Susan Hernandez - Last Filed: 10/29/17 18:38> Discharge Summary Reason For Visit: SEPSIS Current Active Problems Decubital ulcer (Acute) ESRD (end stage renal disease) (Acute) Sepsis (Acute) - Home Medications Comprehensive Discharge Medication List: Ambulatory Orders Acetaminophen 650 mg GT Q6H PRN 10/17/17 Amlodipine Besylate [Norvasc -] 2.5 mg GT DAILY 10/17/17 Apixaban [Eliquis] 5 mg GT BID 10/17/17 Collagenase Clostridium Hist. [Santyl -] 1 applic TP DAILY 10/17/17 Insulin (LOG) Aspart [NovoLOG -] 0 units SQ BID 10/17/17 Insulin NPH Hum/Reg Insulin Hm [Novolin 70-30 100 Unit/ml Vial] 8 unit SQ DAILY 10/17/17 Ipratropium 0.02% Nebulizer [Atrovent 0.02% Nebulizer -] 1 neb NEB Q4H 10/17/17 Lactobacillus Acidophilus [Acidophilus] 1 each GT BID 10/17/17 Nystatin Powder [Nystop Powder -] 60 gm TP DAILY 10/17/17 Paricalcitol 2 mcg IV DAILY 10/17/17 Polyvinyl Alcohol [Artificial Tears] 15 ml OP BID 10/17/17 Sevelamer Carbonate 800 mg GT Q8H 10/17/17 Vitamin B Complex/Folic Acid [B-Stress Capsules] 2,000 mcg GT DAILY 10/17/17 levETIRAcetam [Keppra Oral Solution -] 500 mg GT Q12H 10/17/17 Cefazolin 2 gm/D5w [Ancef 2 gm Premixed Ivpb -] 2 gm IV DAILY #12 ml 10/29/17 Cefazolin 2 gm/D5w [Ancef 2 gm Premixed Ivpb -] 3 gm IV DAILY #6 ml 10/29/17 metroNIDAZOLE [Flagyl -] 500 mg PO TID 42 Days tablet 10/29/17 <Claudy Garcia - Last Filed: 10/29/17 16:29> Current Active Problems Decubital ulcer (Acute) ESRD (end stage renal disease) (Acute) Sepsis (Acute) - Home Medications Comprehensive Discharge Medication List: Ambulatory Orders Acetaminophen 650 mg GT Q6H PRN 10/17/17 Amlodipine Besylate [Norvasc -] 2.5 mg GT DAILY 10/17/17 Apixaban [Eliquis] 5 mg GT BID 10/17/17 Collagenase Clostridium Hist. [Santyl -] 1 applic TP DAILY 10/17/17 Insulin (LOG) Aspart [NovoLOG -] 0 units SQ BID 10/17/17 Insulin NPH Hum/Reg Insulin Hm [Novolin 70-30 100 Unit/ml Vial] 8 unit SQ DAILY 10/17/17 Ipratropium 0.02% Nebulizer [Atrovent 0.02% Nebulizer -] 1 neb NEB Q4H 10/17/17 Lactobacillus Acidophilus [Acidophilus] 1 each GT BID 10/17/17 Nystatin Powder [Nystop Powder -] 60 gm TP DAILY 10/17/17 Paricalcitol 2 mcg IV DAILY 10/17/17 Polyvinyl Alcohol [Artificial Tears] 15 ml OP BID 10/17/17 Sevelamer Carbonate 800 mg GT Q8H 10/17/17 Vitamin B Complex/Folic Acid [B-Stress Capsules] 2,000 mcg GT DAILY 10/17/17 levETIRAcetam [Keppra Oral Solution -] 500 mg GT Q12H 10/17/17 Cefazolin 2 gm/D5w [Ancef 2 gm Premixed Ivpb -] 2 gm IV DAILY #12 ml 10/29/17 Cefazolin 2 gm/D5w [Ancef 2 gm Premixed Ivpb -] 3 gm IV DAILY #6 ml 10/29/17 metroNIDAZOLE [Flagyl -] 500 mg PO TID 42 Days tablet 10/29/17 <Susan Hernandez - Last Filed: 10/29/17 18:38> Condition: Improved - Instructions Diet, Activity, Other Instructions: You were treated in the hospital for sepsis due to sacral decubitus ulcer. We treated you with antibiotics in the hospital. You developed c. diff diarrhea which requires you to be on 6 weeks of outpatient antibiotics. We found that you have osteomyelitis of the sacrum on CT scan You will need to be on antibiotics as an outpatient for treatment of osteomyelitis. MEDICAL RECOMMENDATIONS: -Continue hemodialysis Friday/Friday/Friday -You will need to have your wound vac changed three times a week, likely Friday , Friday, and Friday -Please follow with Dr. Perez in the wound care clinic at [facility] DIETARY RECOMMENDATIONS: -Continue tube feeds nightly between 6pm-6am (12 hours) with Nepro 1.5 at 45cc/ hr with 30cc water flushes -Supplement during the day with a dysphagia puree diet with nectar consistency liquids -Can try to wean from tube feeding after infection treatment has completed ANTIBIOTIC THERAPY - VERY IMPORTANT: -You need to get Ancef 2gm IV AFTER dialysis on Mondays and Wednesdays for osteomyelitis for 6 weeks -You need to get Ancef 3gm IV AFTER dialysis on Fridays for osteomyelitis for 6 weeks -You need to get Flagyl 500 Oral three times a day for 6 weeks -Continue all of your home medications as before REFERRALS: -Please make an appointment with your primary care physician within 1 week of discharge -Please make an appointment with your practice lead Dr. Rich within 1 week of discharge -Please make an appointment with the infection doctor Dr. Borges within 2 weeks of discharge -Please make an appointment with vascular surgeon Dr. Perez within 1 week for wound care appointments Referrals: Lavonne Borges MD [Staff Physician] - 2 Weeks Alexander Perez MD [Staff Physician] - 1 Week Nate Rich MD [Staff Physician] - 1 Week Disposition: HALFWAY FACILITY This patient is new to me today: No Emergency Visit: No Critical Care patient: No - Discharge Referral Referred to [facility] Med [facility] No Physician Referral: Alexander Perez DO ([facility]) <Claudy Garcia - Last Filed: 10/29/17 16:29>
[2017-10-29 18:03] VITALS: BP 117/51; PULSE 95; TEMP 98.7
== END 2017-10-29 19:32 | DRG 871 ==
LOC: JER 11:57 → JERBED 18:27 → J7W 22:46
PROVIDERS: ADMIT Internal Medicine; ATTEND Internal Medicine
PROC: 30233N1 Transfusion of Nonautologous Red Blood Cells into Peripheral Vein, Percutaneous Approach (ICD-10-PCS; 2017-10-18)
PROC: 3E10X8Z Irrigation of Skin and Mucous Membranes using Irrigating Substance (ICD-10-PCS; 2017-10-21)
PROC: 5A1D90Z Performance of Urinary Filtration, Continuous, Greater than 18 hours Per Day (ICD-10-PCS; principal; 2017-10-29)
DX: A41.9 Sepsis, unspecified organism (principal); N18.6 End stage renal disease; L89.154 Pressure ulcer of sacral region, stage 4; G92 Toxic encephalopathy; E87.1 Hypo-osmolality and hyponatremia; N17.9 Acute kidney failure, unspecified; I12.0 Hypertensive chronic kidney disease with stage 5 chronic kidney disease or end stage renal disease; A04.72 Enterocolitis due to Clostridium difficile, not specified as recurrent; M46.28 Osteomyelitis of vertebra, sacral and sacrococcygeal region; I69.351 Hemiplegia and hemiparesis following cerebral infarction affecting right dominant side; E11.22 Type 2 diabetes mellitus with diabetic chronic kidney disease; R41.82 Altered mental status, unspecified; G40.909 Epilepsy, unspecified, not intractable, without status epilepticus; K21.9 Gastro-esophageal reflux disease without esophagitis; E83.52 Hypercalcemia; D72.829 Elevated white blood cell count, unspecified; E11.42 Type 2 diabetes mellitus with diabetic polyneuropathy; D50.9 Iron deficiency anemia, unspecified
CPT/HCPCS: 36415; 36430; 36511; 36600; 70450-TC; 71045-TC-FY; 72193-TC; 72220-TC-FY; 74230-TC-FY; 80048; 80053; 82310; 82375; 82550; 82553; 82565; 82607; 82803; 82962; 83050; 83605; 83735; 83970; 84100; 84443; 84484; 84520; 85025; 85027; 85610; 85651; 85730; 86140; 86704; 86706; 86708; 86803; 86850; 86900; 86901; 86922; 87040; 87070; 87077; 87186; 87205; 87324; 87340; 87449; 92611-GN; 93005; 93010; 97161-GP; 99285-25; G0480; J0885; P9038; P9058

== ENCOUNTER 2018-01-22 10:05 | Inpatient (IN) | payer OTHER ==
[2018-01-22] MEDS ORDERED: VANCOMYCIN 1 GRAM (PRE-DOCKED) 1,000 MG/250 ML BAG IVPB ONE (10:09)
[2018-01-22] MEDS ORDERED: PIPERACILLIN/TAZOB 3.375 GM 3.375 GM/50 ML BAG IVPB ONE (10:09)
[2018-01-22] MEDS ORDERED: VANCOMYCIN 1,000 MG in DEXTROSE 5%-WATER - 250 ML IVPB ONE (10:11)
[2018-01-22] MEDS ORDERED: PIPERACILLIN/TAZOB 3.375 GM 3.375 GM in DEXTROSE 5%-WATER - 50 ML IVPB ONE (10:11)
[2018-01-22] MEDS ORDERED: ACETAMINOPHEN INJECTION 100 ML IVPB ONE (10:14)
[2018-01-22] MEDS ORDERED: NOREPINEPHRINE BITARTRATE 4,000 MCG in DEXTROSE 5%-WATER - 496 ML IV SCH (10:15)
[2018-01-22] MEDS ORDERED: PANTOPRAZOLE SODIUM 40 MG VIAL IVPUSH ONE (10:17)
[2018-01-22] MEDS ORDERED: ATROPINE SULFATE 1 MG/10 ML DISP.SYRIN ONE (10:23)
[2018-01-22] MEDS ORDERED: PANTOPRAZOLE SODIUM 80 MG in SODIUM CHLORIDE 100 ML IVPB SCH (10:30)
[2018-01-22] MEDS ORDERED: SODIUM BICARBONATE 8.4% - 100 ML ONE (10:38)
[2018-01-22] MEDS ORDERED: PHENYLEPHRINE HCL 10 MG/1 ML SINGLE DOSE VIAL ONE (10:53)
[2018-01-22] MEDS ORDERED: PHENYLEPHRINE HCL 20,000 MCG in SODIUM CHLORIDE 248 ML IVPB SCH (11:00)
[2018-01-22 11:06] VITALS: BMI 25.9
[2018-01-22 11:35] LABS: INR 1.78 (0.82-1.09); PROTHROMBIN TIME (PATIENT) 20.1 SEC (9.7-13.0)
[2018-01-22 11:38] LABS: ACTIVATED PTT 57.8 SECONDS (26.9-34.4)
--- NOTE | 2018-01-22 11:42 | EKG ---
Test Reason : Blood Pressure : / mmHG Vent. Rate : 086 BPM Atrial Rate : 086 BPM P-R Int : 178 ms QRS Dur : 072 ms QT Int : 358 ms P-R-T Axes : 015 -02 082 degrees QTc Int : 428 ms NORMAL SINUS RHYTHM NONSPECIFIC ST AND T WAVE ABNORMALITY ABNORMAL ECG WHEN COMPARED WITH ECG OF 18-OCT-2017 11:27, INVERTED T WAVES HAVE REPLACED NONSPECIFIC T WAVE ABNORMALITY IN LATERAL LEADS QT HAS SHORTENED Confirmed by ELEN HUTSON, THOMAS ([id number]) on 01/22/2018 11:42:01 AM Referred By: Confirmed By:THOMAS MYRICK MD
--- NOTE | 2018-01-22 11:50 | PDOC ---
History of Present Illness - History of Present Illness Initial Comments: 01/22/18 16:06 Patient is a 62 year old female, From [facility], with a significant past medical history of hypertension, DVT, end-stage kidney disease on dialysis, pulmonary embolism, anemia, GERD, seizure disorder, stage IV sacral ulcer, osteomyelitis brought in by EMS to the ED with complaints of difficulty breathing. As per EMS patient was experiencing episodes of difficulty breathing while at [place], promoting staff to call EMS to be brought into the ED for further evaluation. EMS reports patient was experiencing agonal breathing on arrival and intubated. They reports patient was administered 1 mg of atropine while en route to the ED. As per EMS patients blood glucose level was found to be 139. Allergies: None Social history: Lives in [facility]. No smoking. No alcohol. No illicit drugs. Surgical history: Bilateral Arm shunts. PMD: Dr. Yarbrough, Dr. Deni Davies <Adalberto Albert - Last Filed: 01/22/18 16:06> - General History Source: EMS, Family, Old Records Exam Limitations: Clinical Condition, Intubated <Wiliam Bynum - Last Filed: 01/22/18 18:20> - General Chief Complaint: Respiratory Arrest Stated Complaint: RESPIRTORY DISTRESS Time Seen by Provider: 01/22/18 10:09 Past History <Adalberto Albert - Last Filed: 01/22/18 16:06> - Past Medical History Anemia: Yes COPD: No Diabetes: Yes Dialysis: Yes (ESRD) Disorders: Yes HTN: Yes Psychiatric Problems: Yes (schizophrenia) Seizures: Yes - Suicide/Smoking/Psychosocial Hx Smoking History: Unknown if ever smoked <Wiliam Bynum - Last Filed: 01/22/18 18:20> - Past Medical History Allergies/Adverse Reactions: Allergies Allergy/AdvReac Type Severity Reaction Status Date / Time No Known Allergies Allergy Verified 01/22/18 11:00 Home Medications: Ambulatory Orders Acetaminophen 650 mg GT Q6H PRN 10/17/17 Amlodipine Besylate [Norvasc -] 2.5 mg GT DAILY 10/17/17 Apixaban [Eliquis] 5 mg GT BID 10/17/17 Collagenase Clostridium Hist. [Santyl -] 1 applic TP DAILY 10/17/17 Insulin (LOG) Aspart [NovoLOG -] 0 units SQ BID 10/17/17 Insulin NPH Hum/Reg Insulin Hm [Novolin 70-30 100 Unit/ml Vial] 8 unit SQ DAILY 10/17/17 Ipratropium 0.02% Nebulizer [Atrovent 0.02% Nebulizer -] 1 neb NEB Q4H 10/17/17 Lactobacillus Acidophilus [Acidophilus] 1 each GT BID 10/17/17 Nystatin Powder [Nystop Powder -] 60 gm TP DAILY 10/17/17 Paricalcitol 2 mcg IV DAILY 10/17/17 Polyvinyl Alcohol [Artificial Tears] 15 ml OP BID 10/17/17 Sevelamer Carbonate 800 mg GT Q8H 10/17/17 Vitamin B Complex/Folic Acid [B-Stress Capsules] 2,000 mcg GT DAILY 10/17/17 levETIRAcetam [Keppra Oral Solution -] 500 mg GT Q12H 10/17/17 Cefazolin 2 gm/D5w [Ancef 2 gm Premixed Ivpb -] 2 gm IV DAILY #12 ml 10/29/17 Cefazolin 2 gm/D5w [Ancef 2 gm Premixed Ivpb -] 3 gm IV DAILY #6 ml 10/29/17 metroNIDAZOLE [Flagyl -] 500 mg PO TID 42 Days tablet 10/29/17 Review of Systems - Review of Systems Able to Perform ROS?: No Comments:: 01/22/18 16:06 Unable to Obtain. <Adalberto Albert - Last Filed: 01/22/18 16:06> *Physical Exam - Vital Signs Last Vital Signs Temp Pulse Resp BP Pulse Ox 99.8 F H 92 H 20 82/70 01/22/18 11:50 01/22/18 13:53 01/22/18 13:35 01/22/18 13:53 - Physical Exam Comments: 01/22/18 16:06 GENERAL: +unresponsive, +ill-appearing HEAD: No signs of trauma. ENT: +ET tube in place. LUNGS: +Rhonchorous bilaterally. HEART: +Tachycardic normal S1 and S2, no murmurs, rubs or gallops ABDOMEN: +Soft. +yellow secretions from G tube. No erythema. EXTREMITIES: +RIght lower extremity proximal IO NEUROLOGICAL: +AAOx0. SKIN: Warm, Dry, normal turgor, no rashes or lesions noted. <Adalberto Albert - Last Filed: 01/22/18 16:06> - Vital Signs Last Vital Signs Temp Pulse Resp BP Pulse Ox 102.5 F H 21 00/00 01/22/18 10:40 01/22/18 10:15 01/22/18 10:40 <Wiliam Bynum - Last Filed: 01/22/18 18:20> Procedures - Additional Procedures Progress: 01/22/18 12:10 Yellow tip IO placed in left proximal tibia and left proximal humerus. Site cleansed with chlorhexidine prior to insertion of IO <Wiliam Bynum - Last Filed: 01/22/18 18:20> Heart Score/ECG Review #1 ECG reviewed & interpreted by me at: 10:10 01/22/18 12:05 NSR 86, nonspecific ST and T wave abnormality. QTC 428 msec <Wiliam Bynum - Last Filed: 01/22/18 18:20> ED Treatment Course - LABORATORY CBC & Chemistry Diagram: 01/22/18 11:10 01/22/18 11:10 - ADDITIONAL ORDERS Additional order review: Laboratory Results 01/22/18 01/22/18 01/22/18 11:10 11:10 11:10 PT with INR INR PTT (Actin FS) Sodium 131 L Potassium 4.8 Chloride 86 L Carbon Dioxide 10 L Anion Gap 35 H BUN 32 H Creatinine 5.0 H Creat Clearance w eGFR 8.77 Random Glucose 572 H* Lactic Acid 22.7 H* Calcium 10.9 H Total Bilirubin 0.9 D AST 1694 H ALT 893 H Alkaline Phosphatase 116 Troponin I 0.03 Total Protein 6.1 L Albumin 1.8 L 01/22/18 11:10 PT with INR 20.10 H INR 1.78 H PTT (Actin FS) 57.8 H D Sodium Potassium Chloride Carbon Dioxide Anion Gap BUN Creatinine Creat Clearance w eGFR Random Glucose Lactic Acid Calcium Total Bilirubin AST ALT Alkaline Phosphatase Troponin I Total Protein Albumin 01/22/18 11:10 RBC Cancelled MCV Cancelled MCHC Cancelled RDW Cancelled MPV Cancelled Neutrophils % Cancelled Lymphocytes % Cancelled Monocytes % Cancelled Eosinophils % Cancelled Basophils % Cancelled - Medications Given in the ED: ED Medications Discontinued Medications Generic Name Dose Route Start Last Admin Trade Name Freq PRN Reason Stop Dose Admin Acetaminophen 1,000 mg 01/22/18 12:12 01/22/18 11:00 Ofirmev Injection - IVPB 01/22/18 12:13 1,000 mg ONCE ONE Administration Hydrocortisone Sodium Succinate 100 mg 01/22/18 12:12 01/22/18 11:50 Solu-Cortef - IVPB 01/22/18 12:13 100 mg ONCE ONE Administration Vancomycin HCl 1,000 mg/ 250 mls @ 166.667 mls/hr 01/22/18 10:11 01/22/18 11: 30 Dextrose IVPB 01/22/18 11:40 166.667 mls/hr ONCE ONE Administration Protocol Piperacillin Sod/Tazobactam 50 mls @ 100 mls/hr 01/22/18 10:11 01/22/18 10:40 Sod 3.375 gm/ Dextrose IVPB 01/22/18 10:40 100 mls/hr ONCE ONE Administration Protocol Pantoprazole Sodium 80 mg 01/22/18 10:17 01/22/18 12:32 Protonix Iv IVPUSH 01/22/18 10:18 80 mg ONCE ONE Administration <Adalberto Albert - Last Filed: 01/22/18 16:06> - LABORATORY CBC & Chemistry Diagram: 01/22/18 11:10 01/22/18 11:10 - ADDITIONAL ORDERS Additional order review: 01/22/18 11:10 RBC 3.20 L MCV 105.1 H MCHC 29.7 L RDW 19.4 H MPV 9.2 D Neutrophils % No Result Required. Lymphocytes % No Result Required. - RADIOLOGY Radiology Studies Ordered: Category Date Time Status CHEST X-RAY PORTABLE* [RAD] Stat Radiology 01/22/18 10:10 Completed <Wiliam Bynum - Last Filed: 01/22/18 18:20> Medical Decision Making - Medical Decision Making 01/22/18 14:[address] Todd velasquez @11: 26am. Dr. Clara Taylor covering. Second page to Dr. Clara Taylor @12:00pm. Dr. Clara Taylor called back @12:18pm. Case discussed. <Adalberto Albert - Last Filed: 01/22/18 16:06> - Critical Care Time Total Critical Care Time (minutes): 60 Critical Care Statement: The care of this patient involved high complexity decision making to prevent further life threatening deterioration of the patient 's condition and/or to evaluate & treat vital organ system(s) failure or risk of failure. - Medical Decision Making 01/22/18 11:40 A portion of this note was documented by scribe services under my direction. I have reviewed the details of the note, within reason, and agree with the documentation with the following case summary and management plan written by me. Patient treated in the ED. Patient arrives by ambulance to the emergency department. Nursing notes are reviewed and incorporated into the medical decision-making. Vital signs reviewed. Peripheral IV access obtained by the nurse, laboratory studies are drawn and sent, reviewed and interpreted by myself. Vital Signs Temp Pulse Resp BP Pulse Ox 102.5 F H 21 00/00 01/22/18 10:40 01/22/18 10:15 01/22/18 10:40 62-year-old female with past medical history of hypertension, DVT, end-stage kidney disease on dialysis, pulmonary embolism, anemia, GERD, seizure disorder, stage IV sacral ulcer, osteomyelitis brought in by EMS in extremis with respiratory failure. According to the usp, the patient started to have difficulty breathing and hypoxia. EMS was activated and according to the medics , the patient had intubated patient with a 7.0 ET tube at 22 at the lip. The patient was full code. Right intraosseous proximal tibial line was placed by the medics. Patient was brought to the ER with pulses. Upon arrival to the ED, the patient was seen immediately by us. The patient was noted to be febrile at 102 and with low blood pressure with 60 systolic. Findings are concerning for septic shock and empiric orders of IV Zosyn and IV vancomycin and was ordered. Patient was noted to have a very foul smelling and deep stage IV sacral ulcer. Despite numerous her phalanges, patient had very difficult access. A second and third intraosseous line in the left proximal tibial and left proximal humerus was placed. Patient underwent cardiac arrest several times with spontaneous return of circulation. Patient has been treated with multiple medications including epinephrine, calcium chloride, sodium bicarbonate, glucose. The patient has been resuscitated for over an hour and eventually the patient remained with return of spontaneous her condition. The patient has been remained on 2 intravenous pressor medications including Kenny-Synephrine and norepinephrine. The patient's son who is a health care proxy, Иван Diamond , had initially made the patient code but after lengthy discussion, after spontaneous return second dictation, the patient has been made DNR in the ER. Case is discussed with Dr. Yarbrough who accepted the patient to the ICU. Dr. Taylor paged. 01/22/18 12:13 The pt noted to have dark emesis. Protonix initiated. CBC, BMP 01/22/18 11:10 01/22/18 11:10 CMP Sodium 131 mmol/L (136-145) L 01/22/18 11:10 Potassium 4.8 mmol/L (3.5-5.1) 01/22/18 11:10 Chloride 86 mmol/L (98-107) L 01/22/18 11:10 Carbon Dioxide 10 mmol/L (21-32) L 01/22/18 11:10 Anion Gap 35 (8-16) H 01/22/18 11:10 BUN 32 mg/dL (7-18) H 01/22/18 11:10 Creatinine 5.0 mg/dL (0.55-1.02) H 01/22/18 11:10 Creat Clearance w eGFR 8.77 (>60) 01/22/18 11:10 Random Glucose 572 mg/dL (74-106) H* 01/22/18 11:10 Lactic Acid 22.7 mmol/L (0.0-2.0) H* 01/22/18 11:10 Calcium 10.9 mg/dL (8.5-10.1) H 01/22/18 11:10 Total Bilirubin 0.9 mg/dL (0.2-1.0) D 01/22/18 11:10 AST 1694 U/L (15-37) H 01/22/18 11:10 ALT 893 U/L (12-78) H 01/22/18 11:10 Alkaline Phosphatase 116 U/L (45-117) 01/22/18 11:10 Troponin I 0.03 ng/ml (0.00-0.05) 01/22/18 11:10 Total Protein 6.1 g/dl (6.4-8.2) L 01/22/18 11:10 Albumin 1.8 g/dl (3.4-5.0) L 01/22/18 11:10 Chest xray confirms with ET tube placement. 01/22/18 12:[address] Clara Taylor. <Wiliam Bynum - Last Filed: 01/22/18 18:20> *DC/Admit/Observation/Transfer - Attestations Scribe Attestion: 01/22/18 16:08 Documentation prepared by Adalberto Albert, acting as medical assisting program director for Wiliam Bynum MD, /DO. <Adalberto Albert - Last Filed: 01/22/18 16:06> - Discharge Dispostion Decision to Admit order: Yes <Wiliam Bynum - Last Filed: 01/22/18 18:20> Diagnosis at time of Disposition: Septic shock, Cardiac arrest - Discharge Dispostion Condition at time of disposition: Guarded
[2018-01-22 11:51] LABS: ALBUMIN 1.8 g/dl (3.4-5.0); ANION GAP 35 (8-16); BILIRUBIN,TOTAL 0.9 mg/dL (0.2-1.0); BLOOD UREA NITROGEN 32 mg/dL (7-18); CALCIUM 10.9 mg/dL (8.5-10.1); CHLORIDE 86 mmol/L (98-107); CO2 10 mmol/L (21-32); SGPT/ALT 893 U/L (12-78); SODIUM 131 mmol/L (136-145); TOT PROT 6.1 g/dl (6.4-8.2)
[2018-01-22 11:53] LABS: ALK PHOS 116 U/L (45-117); POTASSIUM 4.8 mmol/L (3.5-5.1)
[2018-01-22 11:54] LABS: GLUCOSE,RANDOM 572 mg/dL (74-106); SGOT/AST 1694 U/L (15-37)
[2018-01-22] MEDS ORDERED: ACETAMINOPHEN 1000 MG/100 ML VIAL (NON FORMULARY) IVPB ONE (12:12)
[2018-01-22] MEDS ORDERED: HYDROCORTISONE SOD SUCCINATE 100 MG/2 ML VIAL IVPB ONE (12:12)
[2018-01-22 12:20] VITALS: TEMP 99.8
[2018-01-22] MEDS ORDERED: PANTOPRAZOLE SODIUM 40 MG/100 ML BAG IVPB ONE ×2 (12:23→12:33)
[2018-01-22] MEDS ORDERED: PANTOPRAZOLE SODIUM 40 MG VIAL ONE (12:24)
--- NOTE | 2018-01-22 13:13 | HP ---
Admitting History and Physical - Primary Care Physician PCP: Todd Khan - Admission Chief Complaint: respiratory failure History of Present Illness: 62 yrs old female sent from [facility] for respiratory distress- pt was hypoxic and was intubated by EMS. In ER was noted to be febrile, hypotensive -- underwent cardiac arrest in ER several times and was revived - now on 2 pressors, received Zosyn and Vanco in ER- unresponsive on vent. I spoke with ER attending family has agreed for DNR I met with both son and - they understand pt's condition. PMH- ESRD on HD (M, W, F), HTN,SVC syndrome, anemia, DM, c. 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: CVA, Seizure Cardiovascular: Yes: HTN Renal/: Yes: Hemodialysis Heme/Onc: Yes: Anemia Endocrine: Yes: Diabetes Mellitus - Past Surgical History Past Surgical History: Yes: AV Fistula/Graft - Smoking History Smoking history: Unknown if ever smoked Home Medications - Allergies Allergies/Adverse Reactions: Allergies Allergy/AdvReac Type Severity Reaction Status Date / Time No Known Allergies Allergy Verified 01/22/18 11:00 - Home Medications Home Medications: Ambulatory Orders Acetaminophen 650 mg GT Q6H PRN 10/17/17 Amlodipine Besylate [Norvasc -] 2.5 mg GT DAILY 10/17/17 Apixaban [Eliquis] 5 mg GT BID 10/17/17 Collagenase Clostridium Hist. [Santyl -] 1 applic TP DAILY 10/17/17 Insulin (LOG) Aspart [NovoLOG -] 0 units SQ BID 10/17/17 Insulin NPH Hum/Reg Insulin Hm [Novolin 70-30 100 Unit/ml Vial] 8 unit SQ DAILY 10/17/17 Ipratropium 0.02% Nebulizer [Atrovent 0.02% Nebulizer -] 1 neb NEB Q4H 10/17/17 Lactobacillus Acidophilus [Acidophilus] 1 each GT BID 10/17/17 Nystatin Powder [Nystop Powder -] 60 gm TP DAILY 10/17/17 Paricalcitol 2 mcg IV DAILY 10/17/17 Polyvinyl Alcohol [Artificial Tears] 15 ml OP BID 10/17/17 Sevelamer Carbonate 800 mg GT Q8H 10/17/17 Vitamin B Complex/Folic Acid [B-Stress Capsules] 2,000 mcg GT DAILY 10/17/17 levETIRAcetam [Keppra Oral Solution -] 500 mg GT Q12H 10/17/17 Cefazolin 2 gm/D5w [Ancef 2 gm Premixed Ivpb -] 2 gm IV DAILY #12 ml 10/29/17 Cefazolin 2 gm/D5w [Ancef 2 gm Premixed Ivpb -] 3 gm IV DAILY #6 ml 10/29/17 metroNIDAZOLE [Flagyl -] 500 mg PO TID 42 Days tablet 10/29/17 Review of Systems Unable to obtain ROS, reason: intubated - Review of Systems Constitutional: reports: Fever Physical Examination Vital Signs: Vital Signs Temperature 99.8 F H 01/22/18 11:50 Pulse Rate 89 01/22/18 13:01 Respiratory Rate 19 01/22/18 12:30 Blood Pressure 67/58 01/22/18 13:01 O2 Sat by Pulse Oximetry (%) Constitutional: Yes: Moderate Distress Cardiovascular: Yes: Pulse Irregular Respiratory: Yes: Diminished, Mechanically Ventilated Gastrointestinal: Yes: Soft, Abdomen, Obese, Hypoactive Bowel Sounds, Other (GT) Edema: Yes Labs: CBC, BMP 01/22/18 11:10 01/22/18 11:10 Imaging - Results Chest X-ray: Image Reviewed EKG: Image Reviewed Problem List - Problems (1) Cardiac arrest Code(s): I46.9 - CARDIAC ARREST, CAUSE UNSPECIFIED (2) Septic shock Code(s): A41.9 - SEPSIS, UNSPECIFIED ORGANISM; R65.21 - SEVERE SEPSIS WITH SEPTIC SHOCK (3) Decubital ulcer Code(s): L89.90 - PRESSURE ULCER OF UNSPECIFIED SITE, UNSPECIFIED STAGE (4) ESRD (end stage renal disease) Code(s): N18.6 - END STAGE RENAL DISEASE (5) Sepsis Code(s): A41.9 - SEPSIS, UNSPECIFIED ORGANISM Assessment/Plan plan spoke with family poor prognosis supportive care iv antibiotics pressor support pt is DNR
[2018-01-22 13:56] VITALS: BP 82/70; PULSE 92
--- NOTE | 2018-01-22 16:53 | PN ---
Progress Note (short form) - Note Progress Note: Came into examine patient found to be non-responsive. No spontaneous respirations. Non-responsive to verbal/tactile/painful stimuli. No heart sounds auscultated. No breath sounds auscultated. Non-corneal/pupillary/gag reflexes appreciated. VS: HR 0, BP 0/0, RR 0, SpO2 0% Patient pronounced @ 2:52 p.m. on 01/22/18 Family @ bedside. Support given.
== END 2018-01-22 18:35 | disposition expired | DRG 871 ==
LOC: JER 10:05 → JERBED 11:52 → JICU 14:35
PROVIDERS: ADMIT Internal Medicine; ATTEND Internal Medicine
PROC: 5A1935Z Respiratory Ventilation, Less than 24 Consecutive Hours (ICD-10-PCS; principal; 2018-01-22)
DX: A41.9 Sepsis, unspecified organism (principal); L89.154 Pressure ulcer of sacral region, stage 4; R65.21 Severe sepsis with septic shock; J96.01 Acute respiratory failure with hypoxia; N18.6 End stage renal disease; M86.8X8 Other osteomyelitis, other site; I12.0 Hypertensive chronic kidney disease with stage 5 chronic kidney disease or end stage renal disease; K21.9 Gastro-esophageal reflux disease without esophagitis; I46.9 Cardiac arrest, cause unspecified; D64.9 Anemia, unspecified; G40.909 Epilepsy, unspecified, not intractable, without status epilepticus; F20.9 Schizophrenia, unspecified; E66.8 Other obesity; Z68.25 Body mass index [BMI] 25.0-25.9, adult; E11.22 Type 2 diabetes mellitus with diabetic chronic kidney disease; Z86.718 Personal history of other venous thrombosis and embolism; Z99.2 Dependence on renal dialysis; Z86.711 Personal history of pulmonary embolism; Z93.1 Gastrostomy status; Z86.73 Personal history of transient ischemic attack (TIA), and cerebral infarction without residual deficits; Z66 Do not resuscitate
CPT/HCPCS: 36415; 71045-TC-FY; 80053; 82962; 83605; 84484; 85610; 85730; 93005; 93010; 99285-25; J0131